=== PATIENT | female | born 1965 | race Caucasian/White ===

== ENCOUNTER 2017-03-08 17:15 | Inpatient (IN) | payer OTHER ==
[~2017-03-08] VITALS: Ht 177.8 cm; Wt 211.0 kg
--- NOTE | ~2017-03-08 | S ---
[facility] [place] [address] SURGICAL PATH RPT PROCEDURE Name: NURYS BILLS Room #: 429-P ADM IN M.R.#: [id number] Admission: 03/08/17 Date of : 67 Discharge: Report #: [id number] Path Case #: [id number] PATHOLOGY REPORT COLLECTION DATE: 03/11/2017 RECEIVED DATE: 03/13/2017 SUBMITTING PHYS: Dr. Carlos Ya OTHER PHYS: Castro Song M.D. SPECIMEN(S) RECEIVED: A.Left below knee amputation * * * * * * * * * * * * FINAL DIAGNOSIS: A. Leg, left, below knee amputation: - Ulceration, gangrenous necrosis and marked acute inflammation with abscess formation. - Bone underneath ulcer with acute osteomyelitis. - Skin and bone margin viable without acute inflammation. PATHOLOGIST: Ada Goldsmith M.D. REPORT ELECTRONICALLY SIGNED BY: Ada Goldsmith M.D. DATE/TIME: 03/17/2017 11:44 * * * * * * * * * * * * GROSS PATHOLOGY: Received in red biohazard bag labeled "Nurys Bills and left below knee amputation", is a below the knee amputation 24 cm in length from proximal skin resection margin to heel 21 cm from heel to distal tip of second toe. Extending above the skin is a 2.5 cm in length by 4.0 x 2.2 cm tibia and 3.0 cm in length by 1.5 x 1.0 cm fibula. The proximal skin, underlying soft tissue muscle and bone resection margin grossly appear viable. The vascular resection margin is unremarkable. The first digit is previously amputated; the remaining digits show a yellow crusted nail. On the plantar surface there is 18 x 11.0 cm ulcer with pedersen black necrotic skin that extends to the heel bone which is soft to cut. The sidhu-white skin is diffusely edematous. The vasculature shows intimal thickening. Agricultural Education Professor sections submitted as follows: A1 proximal skin, underlying soft tissue, muscle and vascular resection margin A2 bone resection margin, blue ink is tibia and the other fibula after decalcification A3 plantar ulceration A4 bone underlying ulceration of the decalcification A[address] [address] SURGICAL PATH RPT PROCEDURE Name: NURYS BILLS Kristen Room #: 429-P ADM IN M.R.#: [id number] Admission: 03/08/17 Date of : 67 Discharge: Report #: [id number] Path Case #: [id number] (SWS; 03/15/2017) CLINICAL HISTORY: None Provided INITIAL CPT CODE(S): A; [address] [address] PHONE: [phone] DIRECTOR: Nick Richards M.D. * * * END OF REPORT * * *
--- NOTE | ~2017-03-08 | O ---
[facility] [address] OPERATIVE REPORT Name: KALPANA BILLS Room #: 402-P ADM IN M.R.#: [id number] Admission: 03/08/17 Attend Phys: Castro Song MD Discharge: Date of : 67 Report #: [id number] THIS REPORT FOR: //name// CC: Castro Song [facility] physician/PCP PREOPERATIVE DIAGNOSIS: Left foot osteomyelitis, calcaneus with full thickness soft tissue loss. POSTOPERATIVE DIAGNOSIS: Left foot osteomyelitis, calcaneus with full thickness soft tissue loss. PROCEDURE: Left below-knee amputation. SURGEON: Carlos Ya MD ROOFER APPRENTICE: JANIE Moore. ANESTHETIC: General. INDICATIONS: The patient is a 51-year-old female who has diabetes, peripheral vascular disease and peripheral neuropathy. She presented with bilateral full thickness soft tissue ulceration, which was debrided about a week ago. She has exposed calcaneus. She had had MRI scans demonstrating that she had osteomyelitis in both calcanei. She had had amputation discussed with her prior to my seeing her yesterday and she understood that that was necessary to eradicate the infection. I reviewed the surgery in detail with her as well as the benefits, risks, outcomes and alternatives. I counseled her that with her size, poor vasculature and peripheral neuropathy, she is likely never going to be able to walk with a prosthesis, but amputation is advisable to eradicate the infection. We had initially planned to do both sides. However, because of the size of her leg, the tourniquet was ineffective and she had significant edema and bled significantly during the surgery and she was anemic to start with and had received 2 units to enable her to have the surgery in the first place until I and the anesthesiologist, Dr. Fracnisco agreed that it would have been too risky to try to do both lower extremities. She did receive intraoperative transfusion of 6 units. DESCRIPTION OF PROCEDURE: After adequate general anesthesia had been obtained, the patient's left lower extremity was prepped and draped in the usual meticulous sterile fashion. We initially gravity examined the leg and ran tourniquet up to 400; however, once we made the skin incision, it was apparent that we had more of a venous type of tourniquet and it seemed to actually exacerbate the bleeding, so the tourniquet was deflated. A fishmouth incision was made making the flaps as long as possible to stay above the unhealthy venous [address] [address] OPERATIVE REPORT Name: KALPANA BILLS Room #: 402-P ADM IN M.R.#: [id number] Admission: 03/08/17 Attend Phys: Castro Song MD Discharge: Date of : 67 Report #: [id number] stasis and inflamed tissue of the lower leg. Subq was divided sharply. We did obtain hemostasis with a combination of vascular clips and Bovie. The fascia was incised anteriorly and the periosteum was elevated on the tibia. We first released the anterior compartment musculature and identified the neurovascular bundle in the anterior compartment. The vessels were clamped and double suture ligated and the deep peroneal nerve was mobilized and incised and allowed to retract proximally. I then used the saw to transect the tibia and the fibula. The fibula was transected about a cm higher than the tibia. The interosseous membrane was divided. The tibialis posterior muscle was divided. The peroneal vessels and the posterior tibial vessels were identified and suture ligated doubly. The tibial nerve was also divided at about the level of the bone resection. We then took an amputation knife and cut through the remaining musculature of the posterior compartment. I had to debulk some of the muscle to allow for fascial closure. The wound was irrigated copiously, meticulous hemostasis was obtained. I placed a drain deep to the fascia. The fascia was then closed with #1 Tevdek interrupted colzao-vu-kmelo sutures. Subcutaneous was closed with 2-0 Vicryl and I placed trauma stitches with a 2-0 nylon to attempt to take tension off the skin edges and then darcy were placed in between these nylon sutures. Sterile compressive dressing was then applied. By: 1252 [id number] Carlos Ya MD /nt
--- NOTE | ~2017-03-08 | HC ---
[facility] [place] [address] CONSULTATION Name: KALPANA BILLS Room #: 429-P ADM IN M.R.#: [id number] Admission: 03/08/17 Attend Phys: Castro Song MD Discharge: Date of : 67 Report #: [id number] THIS REPORT FOR: //name// CC: Castro Song [facility] physician/PCP REASON FOR CONSULTATION: Elevated creatinine. REASON FOR PRESENTATION: Transferred from [facility] for bleeding heel ulcers. HISTORY OF PRESENT ILLNESS: This is an unfortunate 51-year-old with morbid obesity, diabetes mellitus, bilateral plantar ulcers. She had been in [facility] back in February 24 and stayed until March 03. She had required some debridement and was found to have osteomyelitis of calcaneal bone. When she was in [facility] back on February 24, she had a creatinine of around 1.4 that peaked at around 1.7. She was then discharged to [facility]. Reviewing her medical records there revealed that her creatinine has been creeping up gradually from 1.7 on admission to 1.9, 2.0. She had some issues with bleeding from her plantar wounds and was sent back to [facility] facility for further evaluation and management. She is maintained on Lasix twice a day for extensive bilateral lower extremity edema. The patient is known to have diabetes mellitus, hypertension, extensive lymphedema with morbid obesity, stasis dermatitis and venous stasis changes. The nurses relate to me that she had a Moreira catheter placed at [facility]; however, she had some bleeding from around the Moreira catheter this morning. I am being asked to evaluate because of creatinine of 2.2. She was started on vancomycin and Zosyn on her presentation. No other nephrotoxins. Vancomycin level on the was 25. She does have mild degree of eosinophilia on her peripheral blood. PAST MEDICAL HISTORY: Extensive and numerous medical problems including the following. 1. CKD. 2. Diabetes mellitus. 3. Hypertension. 4. Anemia. 5. Congestive heart failure. 6. Osteomyelitis, bilateral plantar areas. 7. Hypothyroidism. 8. Extensive lymphedema involving the abdominal wall and lower extremities. 9. Obstructive sleep apnea. 10. Obesity hypoventilation syndrome. PAST SURGICAL HISTORY: Debridements of the lower extremities. ALLERGIES: SULFA. [facility] [address] [place] [address] CONSULTATION Name: KALPANA BILLS Room #: 429-P [facility] IN M.R.#: [id number] Admission: 03/08/17 Attend Phys: Castro Song MD Discharge: Date of : 67 Report #: [id number] MEDICATIONS: 1. Vancomycin. 2. Zosyn. 3. Carvedilol. 4. Amlodipine. 5. Lasix. 6. Zantac. 7. Lantus. 8. Levothyroxine. SOCIAL HISTORY: Smoker 1 pack per day. No drug or alcohol abuse. Prior to [facility], she has been living with her spouse and children, 1 boy and 1 daughter. FAMILY HISTORY: Significant for hypertension and hyperlipidemia. REVIEW OF SYSTEMS: GENERAL: No fever or chills. CARDIOVASCULAR: Shortness of breath. PULMONARY: Shortness of breath. GASTROINTESTINAL: No hematemesis. No melena. MUSCULOSKELETAL: As per the history of present illness. GENITOURINARY: Blood from around the Moreira catheter. PHYSICAL EXAMINATION: GENERAL: Morbidly obese. VITAL SIGNS: Temperature 36.6. HEAD AND NECK: No jugular venous distention. CHEST: Very limited air entry. CARDIOVASCULAR: Distant S1 and S2. ABDOMEN: Morbidly obese with extensive abdominal wall edema. LOWER EXTREMITIES: Extensive edema. The images regarding her ulcers were reviewed and those were documented in chart. LABORATORY VALUES: Reviewed, creatinine 2.1. Hemoglobin 12.8. IMAGING: New chest x-ray reviewed. ASSESSMENT, IMPRESSION, AND PLAN: 1. Acute kidney injury. 2. Chronic kidney disease. 3. Morbid obesity. 4. Stasis dermatitis. 5. Lymphedema. [address] [address] CONSULTATION Name: KALPANA BILLS Room #: 429-P ADM IN .R.#: [id number] Admission: 03/08/17 Attend Phys: Castro Song MD Discharge: Date of : 67 Report #: [id number] 6. Peripheral arterial disease with osteomyelitis. 7. Hypothyroidism. 8. Debility. 9. Initiate acute kidney injury workup. Possibilities include acute interstitial booking supervisor given her eosinophilia. 10. Offending agents include Zosyn and vancomycin, the combination of those medications is well known to cause acute kidney injury. 11. We will hold vancomycin for today and obtain a vancomycin level since the level was 25 a few days ago. 12. Avoid nephrotoxins. 13. Fluid restriction. 14. Salt restriction. 15. Wound care. 16. Given the way the wounds looked on the images, she will likely need a surgical intervention. This is a very sudden unfortunate situation given her lymphedema and unfortunately her lymphedema will never resolve. She is currently maintained on Lasix twice a day. This is going to be at the expense of her kidney function and this was explained for her. Most recent TSH on February 24 was elevated at 16.5. I would recommend to obtain a T4 and adjust her thyroid replacement accordingly. We will continue to follow along. <ELECTRONICALLY SIGNED> By: Sher Proctor MD 03/17/17 0746 0925 1426 Sher Proctor MD /nt
--- NOTE | ~2017-03-08 | HC ---
[facility] [place] [address] CONSULTATION Name: KALPANA BILLS Room #: 429-P ADM IN M.R.#: [id number] Admission: 03/08/17 Attend Phys: Castro Song MD Discharge: Date of : 67 Report #: [id number] THIS REPORT FOR: //name// CC: Castro Song [facility] physician/PCP DATE OF SERVICE: 03/15/2017 HISTORY OF PRESENT ILLNESS: The patient is a 51-year-old white female previously known to me with bilateral heel ulcers with osteomyelitis, now status post left below knee amputation on 03/11 and a right below knee amputation on 03/14/2017. The patient is currently in the intensive care unit. She has acute on chronic renal insufficiency. She has morbid obesity with obesity hypoventilation syndrome with BiPAP at night. She has had some postop anemia and is being transfused. We are seeing her in rehabilitation medicine consultation. PAST MEDICAL HISTORY: Includes diabetes mellitus, chronic lower extremity ulcers of both heels premorbidly, history of bilateral lower extremity lymphedema. MEDICATIONS: Please see the full medication listing. ALLERGIES: SULFA. HABITS: Tobacco 1 pack per day. SOCIAL HISTORY: Lives in a house with her in a couple of adult children. The son notes that there are two steps to get in both the front door and the back door, which is a sliding glass door. He indicated she would not fit with the wheelchair through the front door, but would fit through the sliding glass door. He is in the process of building a ramp, although we talked about portable ramps as well. He also talked about bumping her up the couple of steps to get her in through the glass door entrance with himself and other family and friends assisting with the process. He talked about doing that in the short run before the full ramp is built if necessary. The patient premorbidly had been ambulatory short distances in the house and was essentially home bound, although she would get into the car every other week with her to go around apparently paying the bills. REVIEW OF SYSTEMS: No current complaints of chest pain, shortness of breath, abdominal discomfort. PHYSICAL EXAMINATION: A 51-year-old white female in no obvious distress. Height 5 feet 10 inches, weight 465 pounds, alert. Facies appeared symmetric. Functional range of motion of both upper extremities with strength probably a [facility] [address] [place] [address] CONSULTATION Name: KALPANA BILLS Room #: 429-P [facility] IN .R.#: [id number] Admission: 03/08/17 Attend Phys: Castro Song MD Discharge: Date of : 67 Report #: [id number] grade 4 to 4-/5. LOWER EXTREMITIES: Bilateral below knee amputations are wrapped. She was able to lift up both lower extremities at the hip with hip flexion, abduction and adduction are grade 4/5. She does have morbid obesity with a large abdominal pannus. Supine to sit is standby assistance with good sitting balance. ASSESSMENT: A 51-year-old white female with the following problem list: 1. Left below-knee amputation on 03/11/2017 with right below-knee amputation on 03/14/2017. 2. Morbid obesity with weight 465 pounds, although she is 5 feet 10 inches. 3. Acute renal insufficiency. 4. Postoperative anemia. 5. Obesity hypoventilation syndrome. 6. Severe peripheral vascular disease. 7. Diabetes mellitus type 2. PLAN: We will need to see how she does and if sliding board transfers are realistic goal for her. Discussion with the son regarding the ramp issues and I discussed with him the importance of needing to have a ramp built. At this point, we will need to see how she does in therapies and be glad to follow along with you. By: [id number] Silvino Howard MD /PMT
--- NOTE | ~2017-03-08 | H ---
[facility] [place] [address] HISTORY AND PHYSICAL Name: KALPANA BILLS Room #: 402-P ADM IN M.R.#: [id number] Admission: 03/08/17 Attend Phys: Castro Song MD Discharge: Date of : 67 Report #: [id number] THIS REPORT FOR: //name// CC: Castro Song [facility] physician/PCP DATE OF SERVICE: 03/08/2017 ATTENDING PHYSICIAN: Dr. Song. PRIMARY CARE PHYSICIAN: Unknown. CHIEF COMPLAINT: Bleeding heel ulcers. HISTORY OF PRESENT ILLNESS: The patient is a 51-year-old morbidly obese female who was just hospitalized here at [facility] from 02/24/2017 through 03/03/2017. She has bilateral heel ulcers that required debridement. She was found to have osteomyelitis of both calcanei. She did have 2 debridements while she was hospitalized and was sent to [place] for IV antibiotics. She has been on IV vancomycin and Zosyn. She apparently was sent back here tonight because of bleeding from the ulcers and for concern that she may need amputation. The patient is morbidly obese, but she says she has been able to walk and bear weight despite the ulcers. She says they have been bleeding since her last debridement. She is not on any blood thinners; otherwise since discharge, she says she has been feeling okay. She denies any fevers or chills, nausea, vomiting or diarrhea. She has had a good appetite. They have been treating elevated potassium as well and she just got a dose of Kayexalate today, so she was having some softer stool this evening. She does have some respiratory issues due to obesity hypoventilation and said that Efrain had her wearing oxygen continuously since discharge. There also is concern that she has some vascular compromise in both legs. She had an arterial ultrasound of the lower extremities done on 03/03/2017 prior to discharge, which showed that ultrasound velocities were monophasic throughout the entire left and right lower extremity, although this was a difficult exam due to her large body habitus. She does have chronic bilateral lower extremity lymphedema and some stasis dermatitis around both ankles. She says the actual wounds have been there for about 3 months. PAST MEDICAL HISTORY: Congestive heart failure, diabetes, hypertension, anemia of chronic disease and iron deficiency anemia, chronic kidney disease stage 3, obesity, hypothyroidism, chronic abdominal pain, bilateral lower extremity lymphedema with stasis dermatitis, depression, obstructive sleep apnea and obesity hypoventilation syndrome. PAST SURGICAL HISTORY: Multiple debridements of lower extremity wounds. ALLERGIES: SULFA. [address] [address] HISTORY AND PHYSICAL Name: KALPANA BILLS Room #: 402-P [facility] IN M.R.#: [id number] Admission: 03/08/17 Attend Phys: Castro Song MD Discharge: Date of : 67 Report #: [id number] HOME MEDICATIONS: Zosyn 4.5 g q. 6 hours, vancomycin 1 g daily, DuoNeb q. 4 hours, fish oil 1200 mg daily, carvedilol 25 mg b.i.d., amlodipine 10 mg daily, aspirin 325 mg daily, hydrocodone, Tylenol 5/325 one tab q. 4 hours p.r.n., Lyrica 75 mg p.o. b.i.d., Paxil 40 mg daily, Abilify 5 mg daily, Dakin's solution to the feet b.i.d., Lasix 80 mg b.i.d., Pulmicort b.i.d., MiraLax 17 g daily p.r.n., Pepcid 10 mg b.i.d., Zantac 150 mg b.i.d., Protonix 40 mg b.i.d., Lantus insulin 65 units at bedtime, Humalog insulin sliding scale and Humalog with meals 10 units b.i.d., levothyroxine 150 mcg daily. SOCIAL HISTORY: The patient had been smoking 1 pack of cigarettes per day. She denies any alcohol or drug use. Prior to [place], she had been living at home with her spouse and children. FAMILY HISTORY: Hypertension and hyperlipidemia. REVIEW OF SYSTEMS: During her last admission, her hemoglobin A1c was 10.3 and it is difficult to tell if her insulin doses were adjusted. She also had a TSH level of 16.5, but it does not look like her Synthroid dose was adjusted. It also looks like she has had chronic anemia with hemoglobins starting at 9.3 on admission and hemoglobin was down to 7.0 on the day of discharge. It does not look like she has had any blood transfusions. She denies any other bleeding other than from her heel wounds. All other 12-point review of systems was reviewed with the patient, otherwise negative unless stated in the HPI. PHYSICAL EXAMINATION: GENERAL: The patient is an alert, morbidly obese female, in no acute distress. VITAL SIGNS: Temperature is 36.8, heart rate 79, respirations 24, blood pressure 127/52, oxygen 93% on 2 liters O2. HEENT: PERRLA. Sclerae are nonicteric. Oral mucosa is pink and moist. NECK: Supple, no JVD noted. CARDIOVASCULAR: Normal S1, S2. No murmurs, rubs or gallops. RESPIRATORY: Breath sounds are clear bilateral upper lobes, she is diminished in both bases. Breathing is nonlabored. ABDOMEN: Very obese. She is slightly tender to deep palpation diffusely, but no rigidity or guarding. Bowel sounds are positive. VASCULAR: She does have 4+ bilateral lower extremity edema. There is some stasis dermatitis with scleroderma on bilateral lower extremities around her ankle and calf areas. There are bilateral heel wounds, which are both large with eschar. The left is bleeding some foul-smelling serosanguineous discharge. NEUROLOGIC: The patient is alert and oriented x 3. Speech is clear. No focal weakness noted. The RN did have her ambulate to the commode and she was steady on her feet. PSYCHIATRIC: The patient is calm and cooperative, but does have a flat affect. LABORATORY DATA AND DIAGNOSTICS: Labs done at [place] earlier today showed WBC [address] [address] HISTORY AND PHYSICAL Name: KALPANA BILLS Room #: 402-P ADM IN M.R.#: [id number] Admission: 03/08/17 Attend Phys: Castro Song MD Discharge: Date of : 67 Report #: [id number] of 15.1, hemoglobin 7.2 and platelets 455. Sodium 129, potassium 6.0, BUN 75, creatinine 2.0 and glucose 187. ASSESSMENT AND PLAN: 1. Bilateral heels ulcers with osteomyelitis. The patient was transferred due to bleeding and need for further debridement. We will again consult Dr. Pierce. Continue with Dakin's solution to both heels twice a day, continue vancomycin and Zosyn, check CRP level. 2. Diabetes, type 2. Recent hemoglobin A1c was 10.3. Continue current insulin regimen in sliding scale insulin and follow Accu-Cheks and adjust insulin accordingly. 3. Chronic kidney disease, stage 3. Creatinine is stable from previous. Continue with Lasix and monitor renal function closely. 4. Severe anemia. This is combination of iron deficiency and chronic disease. Recent iron level was 15. We will start iron supplementation and transfuse p.r.n., go ahead and type and screen. 5. Hyperkalemia. This was just treated earlier today with Kayexalate. Repeat labs at this time and treat potassium accordingly. She is not on any potassium supplementation with her Lasix. 6. Hypertension. Blood pressure is stable, continue home meds consisting of carvedilol and amlodipine. 7. Chronic respiratory failure due to obesity hypoventilation. Continue with breathing treatments and oxygen. 8. Hypothyroidism. Recent TSH level was 16.5. It does not look like her Synthroid dose was adjusted. We will increase Synthroid, but she will need TSH levels drawn in 6 weeks to follow up. 9. Chronic bilateral lower extremity lymphedema. Continue with p.o. Lasix b.i.d. Her recent echo showed an ejection fraction of 55% and normal diastolic function. 10. Morbid obesity. 11. Depression. Continue home meds. 12. Deep venous thrombosis prophylaxis. Sequential compression devices are contraindicated at this time because of her arterial compromise and lower extremity wounds and Lovenox is contraindicated due to severe anemia and bleeding heel ulcers. We will continue to follow the patient closely throughout the hospitalization and make changes based on clinical status. <ELECTRONICALLY SIGNED> By: BEATRIZ Mo 03/09/17 0749 0511 0613 BEATRIZ Mo /nt
--- NOTE | ~2017-03-08 | O ---
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 PROCEDURE: Right below knee amputation. SURGEON: Carlos Ya MD SHEEP SHEARER: Ana Tierney. ANESTHETIC: General. INDICATIONS: See hospital H and P. DESCRIPTION OF PROCEDURE: After adequate general anesthesia had been obtained, the patient's right lower extremity was prepped and draped in the usual meticulous sterile fashion. We did gravity exsanguinated and inflated the tourniquet to 400 torr. A fishmouth incision was made along the leg. We tried to preserve ____ distal posterior flap as possible, but because of her significant venous stasis and poor skin, we could not go as distal as we would like. SubQ was divided sharply. Hemostasis obtained with electrocautery. Saphenous vein was tied off. Fascia was then incised in line with the incision. We then elevated the soft tissue and periosteum along the tibia and exposed it more proximally. The anterior and lateral compartment muscles were isolated and transected. The anterior tibial artery vein and the deep peroneal nerve were identified. The nerve was isolated, retracted distally and cut and allowed to retract proximally. The vessels were stick tied and doubly ligated with another silk tie. The tibia and fibula were then transected. The fibula was transected about a cm proximal to the tibia. We beveled the anterior tibia and smoothed off the bone edges. The leg was then pulled anteriorly and the soft tissue was elevated off the posterior aspect of the fibula and the tibia. We exposed it more distally to allow for more distal division of the posterior neurovascular bundles to allow for identification and ligature. We then used the amputation knife to bevel the superficial posterior musculature. The leg was then removed. We then identified the vessels and clamped them. The tibial nerve was identified. It was isolated, retracted distally and transected proximally. The [address] [address] OPERATIVE REPORT Name: KALPANA BILLS Room #: 242-P [facility] IN M.R.#: [id number] Admission: 03/08/17 Attend Phys: Castro Song MD Discharge: Date of : 67 Report #: [id number] posterior tibial vessels and the peroneal vessels were then also exposed proximally, clamped transversely and stick ties were placed along with double suture ligature with silk tie. We then irrigated copiously. Hemostasis was obtained. We then applied pressure and let the tourniquet down. Additional hemostasis was then obtained. At this point, the fascia was reapproximated with interrupted stuexo-ti-asaxn Tevdek suture. The subQ was closed with Vicryl and the skin was closed with 2-0 nylon using a trauma stitch to take pressure off the skin edges and then darcy in between. Sterile compressive dressing was applied. By: [id number] Carlos Ya MD /nt
--- NOTE | ~2017-03-08 | HC ---
[facility] [place] [address] CONSULTATION Name: KALPANA BILLS Room #: 242-P ADM IN M.R.#: [id number] Admission: 03/08/17 Attend Phys: Castro Song MD Discharge: Date of : 67 Report #: [id number] THIS REPORT FOR: //name// CC: Castro Song [facility] physician/PCP DATE OF SERVICE: 03/09/2017 REASON FOR CONSULTATION: Pressure ulcers with gangrene of both plantar feet in the setting of diabetes mellitus and super morbid obesity. HISTORY OF PRESENT ILLNESS: The patient is a very pleasant 51-year-old woman suffering from super morbid obesity and diabetes. She was previously hospitalized at [facility] from 02/24/2017 to 03/03/2017 at which time she was seen by Dr. Barrett Davis and Dr. Nikhil Pierce. The patient sits in a chair for prolonged periods of time and when she last presented she had developed pressure necrosis of both plantar feet. Dr. Davis performed a bedside debridement of the most necrotic tissue of both feet. She was started on IV antibiotics. MRI has shown evidence of osteomyelitis of the feet. Arterial ultrasound shows monophasic velocities in both lower legs. Dr. Carr has reviewed these studies and feels that blood supply is adequate without any further interventions. The patient was subsequently transferred to [facility]. They noted there was some bleeding from the wounds there. They felt the patient might need amputations. They; therefore, had the patient readmitted to [facility] where she presents now and Wound Care is consulted for her diabetic foot ulcers with gangrene. PAST MEDICAL HISTORY: Super morbid obesity, diabetes mellitus type 2, hypertension, anemia of chronic disease and iron deficiency anemia, congestive heart failure, chronic kidney disease stage 3, chronic lymphedema of the lower extremities, depression, obstructive sleep apnea and hypoventilation syndrome. PAST SURGICAL HISTORY: Previous amputation of the left great toe for diabetic complications and previous debridement of the necrotic plantar surface of the feet by Dr. Davis at the bedside. HOME MEDICATIONS: Include Zosyn, vancomycin, DuoNeb, carvedilol, amlodipine, aspirin, hydrocodone, Lyrica, Paxil, Abilify, Lasix, Pulmicort, MiraLax, Pepcid, Zantac, Protonix, Lantus and Humalog insulin and levothyroxine. SOCIAL HISTORY: The patient has been a cigarette smoker up until lately. Family members with her in the room. She lives with her . She has children at home. REVIEW OF SYSTEMS: The patient has very difficult mobility due to her super morbid obesity. She has some shortness of breath. [facility] [address] [place] [address] CONSULTATION Name: KALPANA BILLS Room #: 242-P [facility] IN M.R.#: [id number] Admission: 03/08/17 Attend Phys: Castro Song MD Discharge: Date of : 67 Report #: [id number] PHYSICAL EXAMINATION: GENERAL: Shows a super morbidly obese female in no acute distress. She is alert, lucid and conversant. VITAL SIGNS: She is afebrile. HEENT: Mucous membranes are moist. NECK: Supple. LUNGS: Respirations are unlabored. ABDOMEN: Super morbidly obese. EXTREMITIES: Examination of the lower extremities shows chronic lymphedema of both lower extremities. There is some mild redness of the left ankle and foot, less so on the right. Examination of the plantar foot on the left shows full thickness necrosis involving skin and subcutaneous tissue with exposed tendon on the plantar surface of the left foot. There is moist, foul smelling necrotic tissue, very malodorous with some drainage. Examination of the right foot shows similar process, but more limited to the distal plantar aspect of the foot near the heel. IMPRESSION: 1. Super morbid obesity with alveolar hypoventilation. 2. Diabetes mellitus type 2 with diabetic foot ulcerations. 3. Chronic kidney disease. 4. Hypertension. 5. Peripheral vascular disease of the lower extremities. 6. Diabetic foot ulcers of both plantar feet, worse on the left than the right. These were caused by excessive pressure on the feet with sitting for a long period of time. These constitute serious diabetic foot ulcers with gangrene. Necrosis is full thickness with exposed tendon. PLAN: The patient is on IV antibiotics. We have consulted Orthopedics, Dr. Arreguin for his opinion. The patient herself has brought up the subject of amputation. Based on the appearance of the wound, the foul odor, evidence of osteomyelitis on MRI, it seems unlikely that healing of these wounds can be achieved. Furthermore, gangrene of these wounds constitutes an immediate health threat for the patient due to possible extension of infection and possibility of sepsis. We will control the local process with Dakin's dressings and antibiotics. Consulting Orthopedics for their surgical opinion and divisibility of possible amputation. We will await their opinion. I have contacted the [facility] for their surgical opinion. <ELECTRONICALLY SIGNED> By: Festus Jacobs MD 03/12/17 [id number] Festus Jacobs MD /nt
--- NOTE | ~2017-03-08 | S ---
[facility] [place] [address] SURGICAL PATH RPT PROCEDURE Name: NURYS BILLS Room #: 429-P DIS IN M.R.#: [id number] Admission: 03/08/17 Date of : 67 Discharge: 03/17/17 Report #: [id number] Path Case #: [id number] PATHOLOGY REPORT COLLECTION DATE: 03/14/2017 RECEIVED DATE: 03/14/2017 SUBMITTING PHYS: Dr. Carlos Ya OTHER PHYS: Castro Song M.D. SPECIMEN(S) RECEIVED: A.Right below knee amputation * * * * * * * * * * * * FINAL DIAGNOSIS: Leg, right, below knee amputation: - Ulceration, gangrenous necrosis, and marked acute inflammation of the skin and subcutaneous tissue. - Bone underneath ulcer showing acute osteomyelitis. - Skin and bone margin without acute inflammation and viable. (IUV:mgr; 03/17/2017) PATHOLOGIST: Ada Goldsmith M.D. REPORT ELECTRONICALLY SIGNED BY: Ada Goldsmith M.D. DATE/TIME: 03/17/2017 15:52 * * * * * * * * * * * * GROSS PATHOLOGY: Received in red biohazard bag labeled "Nurys Bills and right below knee amputation", is a below the knee amputation 25 cm in length from proximal skin resection margin to heel 24 cm from heel to distal tip of first toe. Extending above the skin is a 35 cm in length by 3.0 x 1.8 cm tibia and 4.0 cm in length by 1.6 x 1.0 cm fibula. The proximal skin, underlying soft tissue muscle and bone resection margin grossly appear viable. The vascular resection margin is unremarkable. All digits are present and shows yellow crusted nail. On the plantar surface there is a10. X 7.0 cm ulcer with pedersen black necrotic skin that extends to the heel bone which is soft to cut. The sidhu-white skin is diffusely edematous. The vasculature shows intimal thickening. 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 sections submitted as follows: A1 proximal skin, underlying soft tissue, muscle and vascular resection margin A2 bone resection margin, ink is tibia and the other fibula after decalcification A3 plantar ulceration and underlying bone after decalcification A4 vasculature (SWS; 03/15/2017) [address] [address] SURGICAL PATH RPT PROCEDURE Name: NURYS BILLS Room #: 429-P DIS IN M.R.#: [id number] Admission: 03/08/17 Date of : 67 Discharge: 03/17/17 Report #: [id number] Path Case #: [id number] CLINICAL HISTORY: Osteomyelitis, bilateral INITIAL CPT CODE(S): A; 84739, 15221 Professional services performed by [facility] [address], [place] [address] [facility] performed by [facility] at [address] [place] [address], [address], [place] [address]. [facility] [address] [place] [address] PHONE: [phone] DIRECTOR: Nick Richards M.D. * * * END OF REPORT * * *
[~2017-03-08 17:15] MED LIST: ABILIFY 5 MG TAB5 MG PO; AMLODIPINE BESY10 MG PO; ASPIRIN325 PO; COREG25 MG PO; FISH OIL 1,001000 M2 PO; HUMALOG100 UNIT/1 SUBQ; LANTUS SUBQ; LASIX 80 MG TAB80 MG PO; LYRICA 75 MG CA75 MG PO; MIRALAX17 GM PO; PANTOPRAZOLE SO40 M1 PO; PAXIL10 MG PO; POTASSIUM20 PO; SYNTHROID150 MCG PO; VANCOMYCIN HCL 11 G2 IVPB; ZANTAC 150MG T150 MG PO; ZOSYN 4.54.5 GM/101 IV; [UNRECOGNIZED DRUG - REMARK]
[2017-03-08 19:13] VITALS: BP 127/52
[2017-03-08] MEDS ORDERED: PEPCID20 MG PO (20:13)
[2017-03-08] MEDS ORDERED: HYDROCODONE-AP1 EAC6 PO (20:14)
[2017-03-08] MEDS ORDERED: DAKIN'S473 M1 TOP (20:16)
[2017-03-08] MEDS ORDERED: MUCINEX600 MG PO (20:16)
[2017-03-08 23:43] LABS: HEMATOCRIT 23.5 % (37.0-47.0); HEMOGLOBIN 7.3 gm/dL (12.0-15.0); MCH 25.8 pg (26.0-34.0); MCV 83.2 fL (80.0-100.0); RBC 2.83 mil/uL (4.20-5.00); WBC 14.2 thou/uL (4.0-11.0)
[2017-03-08 23:48] LABS: CREATININE 2.2 mg/dL (0.6-1.0); MAGNESIUM 2.2 mg/dL (1.8-2.4); POTASSIUM 5.6 mmol/L (3.5-5.1)
[2017-03-09 00:01] VITALS: BP 144/57
[2017-03-09] MEDS ORDERED: PULMICORT0.5 MG/22 INH (00:26)
[2017-03-09] MEDS ORDERED: DUONEB 2.5-0.5 M3 ML INH (00:28)
[2017-03-09 03:06] VITALS: BP 148/59
[2017-03-09 08:30] VITALS: BP 167/59
[2017-03-09 16:00] VITALS: BP 142/54
[2017-03-09 19:07] VITALS: BP 158/60
[2017-03-10] VITALS (7 sets, daily range): BP systolic 136–154; BP diastolic 48–65
[2017-03-10 04:28] LABS: HEMATOCRIT 22.1 % (37.0-47.0); MCHC 31.5 g/dL (28.0-37.0); MCV 82.5 fL (80.0-100.0); PLATELET COUNT 455 thou/uL (150-400); RBC 2.68 mil/uL (4.20-5.00); RDW 17.4 % (10.5-14.5); WBC 12.8 thou/uL (4.0-11.0)
[2017-03-10 04:32] LABS: CREATININE 2.1 mg/dL (0.6-1.0); POTASSIUM 4.9 mmol/L (3.5-5.1)
[2017-03-10 04:34] LABS: MANUAL DIFF YES
[2017-03-10 06:58] LABS: ABSOLUTE NEUTROPHILS 9.9 thou/uL (1.4-8.2); ANISOCYTOSIS 1+; MYELOCYTES 1 %; POLYCHROMASIA OCCASIONAL; TOTAL CELL COUNT 100
[2017-03-10 06:59] LABS: PLATELET ESTIMATE NORMAL
[2017-03-11] VITALS (24 sets, daily range): BP systolic 124–169; BP diastolic 49–114
[2017-03-11 04:30] LABS: HEMATOCRIT 24.8 % (37.0-47.0); MCH 26.9 pg (26.0-34.0); MCHC 32.3 g/dL (28.0-37.0); MCV 83.2 fL (80.0-100.0); PLATELET COUNT 386 thou/uL (150-400); RBC 2.98 mil/uL (4.20-5.00); RDW 17.4 % (10.5-14.5); WBC 10.4 thou/uL (4.0-11.0)
[2017-03-11 04:34] LABS: MANUAL DIFF YES
[2017-03-11 04:42] LABS: CALCIUM 8.1 mg/dL (8.5-10.1); POTASSIUM 4.8 mmol/L (3.5-5.1)
[2017-03-11 04:47] LABS: % SATURATION 28 % (20-39); IRON 46 ug/dL (50-170); TIBC 164 ug/dL (250-450); UIBC 118 ug/dL
[2017-03-11 05:17] LABS: FOLIC ACID 7.8 ng/mL (8.6-58.9)
[2017-03-11 05:55] LABS: ABSOLUTE NEUTROPHILS 8.1 thou/uL (1.4-8.2); ANISOCYTOSIS 1+; MYELOCYTES 1 %; POLYCHROMASIA OCCASIONAL; TOTAL CELL COUNT 100
[2017-03-11 11:10] LABS: HEMATOCRIT 22.9 % (37.0-47.0); MCH 27.5 pg (26.0-34.0); MCHC 32.4 g/dL (28.0-37.0); MCV 84.9 fL (80.0-100.0); RBC 2.7 mil/uL (4.20-5.00); RDW 16.2 % (10.5-14.5); WBC 9.9 thou/uL (4.0-11.0)
[2017-03-11 11:12] LABS: HEMOGLOBIN 7.4 gm/dL (12.0-15.0)
[2017-03-11 11:21] LABS: APTT 32.3 Seconds (24.5-32.8); FIBRINOGEN 398.6 mg/dL (210-360); PROTIME 12.7 Seconds (9.3-11.4)
[2017-03-11 11:23] LABS: INR 1.2
[2017-03-11 13:45] LABS: HEMATOCRIT 31.8 % (37.0-47.0); MCH 28.8 pg (26.0-34.0); MCV 84.5 fL (80.0-100.0); RBC 3.77 mil/uL (4.20-5.00); RDW 16.2 % (10.5-14.5); WBC 15.1 thou/uL (4.0-11.0)
[2017-03-11 13:47] LABS: HEMOGLOBIN 10.8 gm/dL (12.0-15.0)
[2017-03-11 13:56] LABS: CALCIUM 8.2 mg/dL (8.5-10.1); CREATININE 1.8 mg/dL (0.6-1.0); POTASSIUM 5.6 mmol/L (3.5-5.1)
[2017-03-11 14:00] LABS: APTT 29.2 Seconds (24.5-32.8); FIBRINOGEN 493.1 mg/dL (210-360); INR 1.1; PROTIME 11.4 Seconds (9.3-11.4)
[2017-03-11 15:58] LABS: HEMATOCRIT 31.4 % (37.0-47.0); HEMOGLOBIN 10.3 gm/dL (12.0-15.0)
[2017-03-12] VITALS (23 sets, daily range): BP systolic 107–161; BP diastolic 38–108
[2017-03-12 06:05] LABS: HEMATOCRIT 27.2 % (37.0-47.0); HEMOGLOBIN 8.8 gm/dL (12.0-15.0); MCH 27.4 pg (26.0-34.0); MCHC 32.5 g/dL (28.0-37.0); MCV 84.4 fL (80.0-100.0); PLATELET COUNT 323 thou/uL (150-400); RBC 3.22 mil/uL (4.20-5.00); RDW 16.1 % (10.5-14.5); WBC 12.2 thou/uL (4.0-11.0)
[2017-03-12 06:17] LABS: MANUAL DIFF YES
[2017-03-12 06:20] LABS: CREATININE 1.7 mg/dL (0.6-1.0); POTASSIUM 5.3 mmol/L (3.5-5.1)
[2017-03-12 10:42] LABS: ABSOLUTE NEUTROPHILS 10.5 thou/uL (1.4-8.2); TOTAL CELL COUNT 100
[2017-03-12 10:43] LABS: ANISOCYTOSIS 1+; POLYCHROMASIA OCCASIONAL
[2017-03-13] VITALS (29 sets, daily range): BP systolic 81–145; BP diastolic 43–80
[2017-03-13 05:13] LABS: HEMATOCRIT 25.3 % (37.0-47.0); HEMOGLOBIN 8.2 gm/dL (12.0-15.0); MCH 28.1 pg (26.0-34.0); MCHC 32.6 g/dL (28.0-37.0); MCV 86.1 fL (80.0-100.0); PLATELET COUNT 316 thou/uL (150-400); RBC 2.94 mil/uL (4.20-5.00); RDW 16.8 % (10.5-14.5); WBC 10.1 thou/uL (4.0-11.0)
[2017-03-13 05:16] LABS: MANUAL DIFF YES
[2017-03-13 05:23] LABS: ALBUMIN 1.6 g/dL (3.4-5.0); CALCIUM 7.9 mg/dL (8.5-10.1); CREATININE 1.9 mg/dL (0.6-1.0); PHOSPHORUS 5.1 mg/dL (2.5-4.9); POTASSIUM 4.7 mmol/L (3.5-5.1)
[2017-03-13 07:07] LABS: ABSOLUTE NEUTROPHILS 6.6 thou/uL (1.4-8.2); ANISOCYTOSIS 1+; METAMYELOCYTES 3 %; POLYCHROMASIA OCCASIONAL; TOTAL CELL COUNT 100
[2017-03-14] VITALS (32 sets, daily range): BP systolic 99–151; BP diastolic 52–86
[2017-03-14 05:08] LABS: BASOPHILS 0.2 % (0.0-2.0); EOSINOPHILS 4.8 % (0.0-3.0); HEMATOCRIT 26.9 % (37.0-47.0); HEMOGLOBIN 8.7 gm/dL (12.0-15.0); MCH 28.3 pg (26.0-34.0); MCHC 32.4 g/dL (28.0-37.0); MCV 87.3 fL (80.0-100.0); MONOCYTES 7.7 % (1.0-8.0); PLATELET COUNT 297 thou/uL (150-400); POLYS 71.3 % (36.0-66.0); RBC 3.08 mil/uL (4.20-5.00); RDW 16.1 % (10.5-14.5); WBC 8.5 thou/uL (4.0-11.0)
[2017-03-14 05:10] LABS: MANUAL DIFF NO
[2017-03-14 05:21] LABS: ALBUMIN 1.7 g/dL (3.4-5.0); CALCIUM 7.7 mg/dL (8.5-10.1); CREATININE 1.9 mg/dL (0.6-1.0); POTASSIUM 4.8 mmol/L (3.5-5.1); TOTAL BILIRUBIN 0.7 mg/dL (<0.1-1.0)
[2017-03-15] VITALS (47 sets, daily range): BP systolic 84–157; BP diastolic 42–116
[2017-03-15 05:27] LABS: HEMATOCRIT 22.1 % (37.0-47.0); HEMOGLOBIN 7.3 gm/dL (12.0-15.0); MCH 28.7 pg (26.0-34.0); MCHC 32.8 g/dL (28.0-37.0); MCV 87.6 fL (80.0-100.0); PLATELET COUNT 279 thou/uL (150-400); RBC 2.53 mil/uL (4.20-5.00); RDW 16.4 % (10.5-14.5); WBC 9.4 thou/uL (4.0-11.0)
[2017-03-15 05:38] LABS: ALBUMIN 1.6 g/dL (3.4-5.0); CALCIUM 7.6 mg/dL (8.5-10.1); CREATININE 1.9 mg/dL (0.6-1.0)
[2017-03-15 05:39] LABS: MANUAL DIFF YES
[2017-03-15 08:04] LABS: ABSOLUTE NEUTROPHILS 8.8 thou/uL (1.4-8.2); ANISOCYTOSIS 1+; TOTAL CELL COUNT 100
[2017-03-16 05:18] VITALS: BP 138/65
[2017-03-16 07:32] VITALS: BP 153/75
[2017-03-16 08:34] LABS: BASOPHILS 1.2 % (0.0-2.0); EOSINOPHILS 4.1 % (0.0-3.0); HEMATOCRIT 23.9 % (37.0-47.0); HEMOGLOBIN 7.9 gm/dL (12.0-15.0); LYMPHOCYTES 19.9 % (24.0-44.0); MCH 28.8 pg (26.0-34.0); MCHC 32.8 g/dL (28.0-37.0); MCV 87.8 fL (80.0-100.0); MONOCYTES 7.2 % (1.0-8.0); PLATELET COUNT 291 thou/uL (150-400); POLYS 67.6 % (36.0-66.0); RBC 2.73 mil/uL (4.20-5.00); RDW 16.4 % (10.5-14.5); WBC 8.9 thou/uL (4.0-11.0)
[2017-03-16 08:37] LABS: MANUAL DIFF NO
[2017-03-16 09:08] LABS: ALBUMIN 1.3 g/dL (3.4-5.0); CREATININE 1.3 mg/dL (0.6-1.0); PHOSPHORUS 2.7 mg/dL (2.5-4.9)
[2017-03-16 09:10] LABS: POTASSIUM 3.4 mmol/L (3.5-5.1)
[2017-03-16 09:12] LABS: CALCIUM 5.8 mg/dL (8.5-10.1)
[2017-03-16] MEDS ORDERED: IRON325 PO (12:27)
[2017-03-16] MEDS ORDERED: PERCOCET 5-3251 EACH PO (12:27)
[2017-03-16 15:16] VITALS: BP 122/55
[2017-03-16 20:00] VITALS: BP 126/57
[2017-03-17 05:00] VITALS: BP 127/49
[2017-03-17 06:31] LABS: ALBUMIN 1.8 g/dL (3.4-5.0); CALCIUM 7.7 mg/dL (8.5-10.1); PHOSPHORUS 3.4 mg/dL (2.5-4.9); POTASSIUM 4.7 mmol/L (3.5-5.1)
[2017-03-17 09:10] VITALS: BP 150/69
== END 2017-03-17 15:30 | DRG 617 ==
LOC: 4N 17:15 → ICU 03-11 14:14 → 4E 03-15 16:22
PROVIDERS: Anesthesiology; Hospitalist; Internal Medicine Nephrology; Nurse Practitioner Acute Care
PROC: 0Y6G0ZZ Detachment at Left Knee Region, Open Approach (ICD-10-PCS; principal; 2017-03-11)
PROC: 30233R1 Transfusion of Nonautologous Platelets into Peripheral Vein, Percutaneous Approach (ICD-10-PCS; 2017-03-11)
PROC: 30233N1 Transfusion of Nonautologous Red Blood Cells into Peripheral Vein, Percutaneous Approach (ICD-10-PCS; 2017-03-11)
PROC: 0Y6F0ZZ Detachment at Right Knee Region, Open Approach (ICD-10-PCS; 2017-03-14)
DX: E11.69 Type 2 diabetes mellitus with other specified complication (principal); M86.8X7 Other osteomyelitis, ankle and foot; Z68.44 Body mass index [BMI] 60.0-69.9, adult; J96.10 Chronic respiratory failure, unspecified whether with hypoxia or hypercapnia; E66.2 Morbid (severe) obesity with alveolar hypoventilation; L97.429 Non-pressure chronic ulcer of left heel and midfoot with unspecified severity; L97.419 Non-pressure chronic ulcer of right heel and midfoot with unspecified severity; E11.621 Type 2 diabetes mellitus with foot ulcer; I87.2 Venous insufficiency (chronic) (peripheral); I13.0 Hypertensive heart and chronic kidney disease with heart failure and stage 1 through stage 4 chronic kidney disease, or unspecified chronic kidney disease; E11.22 Type 2 diabetes mellitus with diabetic chronic kidney disease; N17.9 Acute kidney failure, unspecified; D50.0 Iron deficiency anemia secondary to blood loss (chronic); N18.3 Chronic kidney disease, stage 3 (moderate); E87.5 Hyperkalemia; F32.9 Major depressive disorder, single episode, unspecified; E03.9 Hypothyroidism, unspecified; I50.9 Heart failure, unspecified; D50.9 Iron deficiency anemia, unspecified; I89.0 Lymphedema, not elsewhere classified; E11.51 Type 2 diabetes mellitus with diabetic peripheral angiopathy without gangrene; Z79.899 Other long term (current) drug therapy; Z83.3 Family history of diabetes mellitus; Z88.2 Allergy status to sulfonamides
CPT/HCPCS: 10078; 10783; 10790; 50010; 50101; 50386; 50404; 51412; 53000; 56524; 56525; 56527; 56528; 56668; 57091; 62110; 62900; 70005

== ENCOUNTER 2017-08-17 11:11 | Inpatient (IN) | payer OTHER ==
[~2017-08-17] VITALS: Ht 177.8 cm; Wt 212.7 kg
--- NOTE | ~2017-08-17 | EKG ---
[address] [place] [employer] [place] [address] ELECTROCARDIOGRAM REPORT Name: KALPANA BILLS Room #: 458-P ADM IN M.R.#: [id number] Admission: 08/17/17 Attend Phys: Tavon Valles MD Discharge: Date of : 67 Report #: [id number] THIS REPORT FOR: //name// [facility]ly [facility] Test Date: 2017-08-19 Test Time: 12:55:04 Pat Name: KALPANA BILLS Department: Room: 458 Gender: F Certified Medical Records Coder: [email or web address] : 1965 Requested By: Tavon Valles Order Number: [id number] MD: Malick Kline Measurements Intervals [place] Rate: 74 P: 68 [place]: 198 QRS: 48 QRSD: 97 T: 39 QT: 400 QTc: 444 Interpretive Statements Sinus rhythm Low voltage, precordial leads Anteroseptal infarct, old Compared to ECG 02/24/2017 11:53:52 No significant changes Electronically Signed On 08-20-2017 16:36:19 CDT by Malick Kline [email or web address] <ELECTRONICALLY SIGNED> By: Malick Kline MD, [facility] 08/20/17 0286 1255 1255 Malick Kline MD, [facility] /EPI
--- NOTE | ~2017-08-17 | HC ---
[facility] [place] [address] CONSULTATION Name: KALPANA BILLS Room #: 458-P [facility] IN M.R.#: [id number] Admission: 08/17/17 Attend Phys: Tavon Valles MD Discharge: 08/21/17 Date of : 67 Report #: [id number] THIS REPORT FOR: //name// CC: Tavon Driver DATE OF SERVICE: 08/18/2017 CHIEF COMPLAINT: Bilateral BKA stump ulcerations. HISTORY OF PRESENT ILLNESS: This is a 52-year-old morbidly obese white female who is being admitted to the hospital for ongoing abdominal pain and nausea. There was question whether the patient had a midline mass, could possibly be a ventral hernia, workup is undergoing. We have been asked to see the patient for bilateral ulcerations on her bilateral BKA stumps. The patient states that in order for her to get around the house some times, she has to crawl on the floor and that is how these ulcerations started on her stumps. The patient denies any pain associated with the ulcerations. The patient denies any fevers or chills or any other associated complaints or concerns. The patient's blood sugar in the Emergency Department was over 700. The patient does admit to the fact that she has not been taking her insulin over the past several days. PAST MEDICAL HISTORY: Super morbid obesity, bilateral mohzn-sbe-rjsa amputations, diabetes. CURRENT MEDICATIONS: Multiple, I reviewed the patient's medication list. ALLERGIES: SULFA. SOCIAL HISTORY: The patient states she does smoke 1 pack of cigarettes daily. Does not drink alcohol. FAMILY HISTORY: Not pertinent to current medical condition. REVIEW OF SYSTEMS: CONSTITUTIONAL: The patient denies fevers or chills. NEUROLOGIC: The patient with overall generalized weakness, but no isolated weakness in arms or legs. EYES: No complaints. ENT: No complaints. CARDIAC: The patient has chronic lower extremity edema. Denies chest pain or palpitation. RESPIRATORY: The patient denies shortness of breath, cough or wheezes. GASTROINTESTINAL: The patient with generalized abdominal pain with associated nausea, vomiting. GENITOURINARY: The patient denies urgency or frequency. [facility] [address] [place] [address] CONSULTATION Name: KALPANA BILLS Room #: 458-P [facility] IN .R.#: [id number] Admission: 08/17/17 Attend Phys: Tavon Valles MD Discharge: 08/21/17 Date of : 67 Report #: [id number] MUSCULOSKELETAL: No complaints. SKIN: There are open ulcerations on the right BKA, limited breakdown of skin on the left BKA, limited breakdown of subcutaneous tissue. PHYSICAL EXAMINATION: VITAL SIGNS: Temperature 37.0, pulse 85, respiration rate 19, and blood pressure 133/55. GENERAL: This is alert and oriented x 3, morbidly obese white female who is in mild distress secondary to symptoms. HEENT: Normocephalic, atraumatic. Mucous membranes are somewhat dry. Pupils are round. Sclerae are white. NECK: Supple, nontender. LUNGS: Slightly diminished breath sounds heard throughout. HEART: Regular. ABDOMEN: Morbidly obese, soft. Mild diffuse tenderness without rebound or guarding. EXTREMITIES: The patient has bilateral BKAs; on the right BKA stump, there is a chronic ulceration which is clean, granulating, limited breakdown of skin without tunneling. There are no signs of erythema, warmth, or cellulitis, measures approximately 3 x 2 cm with x 0.1 cm depth. On the left lower extremity BKA stump, there is a full-thickness ulceration with limited breakdown of the subcutaneous tissues with yellowish drainage without odor. Periulcer is intact. There is tunneling that goes in approximately 2 cm. On the outside, it is approximately 1 x 1 cm. There is no evidence of exposed deeper structures. No signs of cellulitis. Sacrococcygeal region was without ulcerations or pressure changes. NEUROLOGIC: Cranial nerves 2-12 grossly intact. Motor and sensory grossly intact. LABORATORY DATA: White count 10.5, hemoglobin 12.0, BUN 31, creatinine 2.4. WOUND CARE COURSE: At this time, we will start Aquacel Ag packed into the left jcuvg-pus-deeq amputation stump site, change this 3 times weekly and cover with a foam dressing. The right lower extremity BKA ulceration will be dressed with a silver foam, change this three times weekly. The patient will be put in a low air loss mattress; given her morbid obesity and risk for pressure changes, be turned every 2 hours. We will try to maximize the patient's protein supplementation for healing. Workup for her nausea is undergoing by the gastrointestinal physicians and surgeons. We will continue to follow the patient. IMPRESSION: 1. Chronic ulceration, right rafzj-gku-xhid amputation stump, superficial, limited to breakdown of skin. 2. Chronic ulceration, left dxhfs-vsa-zyky amputation stump, full thickness, limited breakdown of subcutaneous tissue. [facility] [address] [place] [address] CONSULTATION Name: KALPANA BILLS Room #: 458-P DIS IN M.R.#: [id number] Admission: 08/17/17 Attend Phys: Tavon Valles MD Discharge: 08/21/17 Date of : 67 Report #: [id number] 3. Chronic nausea, workup is undergoing. 4. Morbid obesity. 5. Diabetes mellitus type 2. 6. Generalized debility. PLAN: We will continue silver foam dressing to the right rthei-kxz-srum amputation stump site, change it 3 times weekly. Aquacel will be packed into the left knee site 3 times weekly. We will continue all the other medicines at this time. We will continue to follow the patient. By: 1136 05 Barrett Davis MD /nt
[~2017-08-17 11:11] MED LIST changes: +DAKIN'S473 M1 TOP; +DUONEB 2.5-0.5 M3 ML INH; +HYDROCODONE-AP1 EAC6 PO; +IRON325 PO; +MUCINEX600 MG PO; +PEPCID20 MG PO; +PERCOCET 5-3251 EACH PO; +PULMICORT0.5 MG/22 INH
[2017-08-17 11:12] VITALS: BP 156/79
[2017-08-17 12:51] LABS: HEMATOCRIT 34.9 % (37.0-47.0); MCHC 34.4 g/dL (28.0-37.0); MCV 84.5 fL (80.0-100.0); PLATELET COUNT 243 thou/uL (150-400); RBC 4.14 mil/uL (4.20-5.00); RDW 14.6 % (10.5-14.5); WBC 10.5 thou/uL (4.0-11.0)
[2017-08-17] MEDS ORDERED: LYRICA 75 MG CA75 MG PO (12:55)
[2017-08-17] MEDS ORDERED: RANITIDINE HCL300 M1 PO (12:56)
[2017-08-17] MEDS ORDERED: LASIX 80 MG TAB80 MG PO (12:56)
[2017-08-17 12:57] LABS: URINE BILIRUBIN NEGATIVE (Negative); URINE BLOOD 1+ (Negative); URINE CLARITY SL CLOUDY; URINE COLOR YELLOW; URINE GLUCOSE-RANDOM* 3+ (Negative); URINE KETONES NEGATIVE (Negative); URINE LEUKOCYTES-REFLEX NEGATIVE (Negative); URINE NITRITE-REFLEX NEGATIVE (Negative); URINE PROTEIN (DIPSTICK) 3+ (Negative); URINE SPECIFIC GRAVITY <= 1.005 (1.005-1.035); URINE UROBILINOGEN 0.2 E.U./dl (0.2-1.0)
[2017-08-17] MEDS ORDERED: POTASSIUM20 PO (12:57)
[2017-08-17] MEDS ORDERED: PAROXETINE HCL40 MG PO (12:57)
[2017-08-17] MEDS ORDERED: ALBUTEROL2.5 MG/31 INH (12:58)
[2017-08-17] MEDS ORDERED: COMBIVENT RESPIM4 GM INH (12:58)
[2017-08-17] MEDS ORDERED: VENTOLIN HFA 1818 GM INH (12:58)
[2017-08-17 13:08] LABS: SQUAMOUS 4-10 Moderate /LPF (0-3)
[2017-08-17 13:10] LABS: FINE GRANULAR CASTS 0-3 Few /LPF (None Seen)
[2017-08-17 13:11] LABS: CALCIUM 8.3 mg/dL (8.5-10.1); CREATININE 2.1 mg/dL (0.6-1.0)
[2017-08-17 13:11] LABS: AMORPHOUS URATES Moderate /LPF (None Seen); BACTERIA-REFLEX 1-9 Few /HPF (None Seen); URINE RBC 0-2 Rare /HPF (0-2); URINE WBC-REFLEX 0-5 Rare /HPF (0-5)
[2017-08-17 13:21] LABS: POTASSIUM 2.7 mmol/L (3.5-5.1)
[2017-08-17 13:32] LABS: ABSOLUTE NEUTROPHILS 8.5 thou/uL (1.4-8.2); PLATELET ESTIMATE NORMAL
[2017-08-17 14:03] VITALS: BP 181/72
[2017-08-17 14:26] VITALS: BP 193/70
[2017-08-17 16:39] VITALS: BP 168/73
[2017-08-17 19:19] VITALS: BP 167/65
[2017-08-18 00:20] VITALS: BP 156/67
[2017-08-18 04:55] VITALS: BP 141/51
[2017-08-18 05:56] LABS: CALCIUM 7.5 mg/dL (8.5-10.1); CREATININE 2.1 mg/dL (0.6-1.0); MAGNESIUM 1.7 mg/dL (1.8-2.4); POTASSIUM 3.1 mmol/L (3.5-5.1)
[2017-08-18 08:14] LABS: HEMOGLOBIN 11.8 gm/dL (12.0-15.0); MCH 29.1 pg (26.0-34.0); MCHC 34.6 g/dL (28.0-37.0); RBC 4.05 mil/uL (4.20-5.00); WBC 9.3 thou/uL (4.0-11.0)
[2017-08-18 08:44] VITALS: BP 163/59
[2017-08-18 11:38] LABS: CALCIUM 7.7 mg/dL (8.5-10.1); CREATININE 2.3 mg/dL (0.6-1.0)
[2017-08-18 11:39] LABS: MAGNESIUM 1.8 mg/dL (1.8-2.4)
[2017-08-18 11:42] LABS: POTASSIUM 2.8 mmol/L (3.5-5.1)
[2017-08-18 16:30] VITALS: BP 139/58
[2017-08-18 19:30] VITALS: BP 156/63
[2017-08-19 03:31] VITALS: BP 152/73
[2017-08-19 07:10] VITALS: BP 159/74
[2017-08-19 15:40] VITALS: BP 155/76
[2017-08-19 20:00] VITALS: BP 155/68
[2017-08-20 04:30] VITALS: BP 150/69
[2017-08-20 07:02] LABS: HEMATOCRIT 36.1 % (37.0-47.0); HEMOGLOBIN 12.2 gm/dL (12.0-15.0); MCH 28.6 pg (26.0-34.0); MCHC 33.9 g/dL (28.0-37.0); MCV 84.4 fL (80.0-100.0); RBC 4.27 mil/uL (4.20-5.00); RDW 14.9 % (10.5-14.5); WBC 9.8 thou/uL (4.0-11.0)
[2017-08-20 07:10] VITALS: BP 152/72
[2017-08-20 07:10] LABS: CALCIUM 7.6 mg/dL (8.5-10.1); CREATININE 2.4 mg/dL (0.6-1.0); POTASSIUM 3.6 mmol/L (3.5-5.1)
[2017-08-20 07:12] VITALS: BP 152/72
[2017-08-20] MEDS ORDERED: LANTUS SUBQ (13:05)
[2017-08-20] MEDS ORDERED: HUMALOG100 UNIT/1 SUBQ (13:11)
[2017-08-20 13:34] VITALS: BP 152/72
[2017-08-20 15:35] VITALS: BP 150/68
[2017-08-20 19:00] VITALS: BP 153/69
[2017-08-21 04:13] VITALS: BP 133/55
[2017-08-21 08:00] VITALS: BP 141/54
[2017-08-21] MEDS ORDERED: POTASSIUM20 PO (13:15)
[2017-08-21] MEDS ORDERED: LASIX 80 MG TAB80 MG PO (13:15)
== END 2017-08-21 16:10 | disposition home or self-care (01) | DRG 565 ==
LOC: ER 11:11 → EROBS 13:49 → 3W 15:30 → 4W 16:01
PROVIDERS: Emergency Medicine; Hospitalist
DX: T87.43 Infection of amputation stump, right lower extremity (principal); E46 Unspecified protein-calorie malnutrition; I13.0 Hypertensive heart and chronic kidney disease with heart failure and stage 1 through stage 4 chronic kidney disease, or unspecified chronic kidney disease; Z68.44 Body mass index [BMI] 60.0-69.9, adult; T87.44 Infection of amputation stump, left lower extremity; E11.621 Type 2 diabetes mellitus with foot ulcer; K21.9 Gastro-esophageal reflux disease without esophagitis; E11.65 Type 2 diabetes mellitus with hyperglycemia; E66.01 Morbid (severe) obesity due to excess calories; L97.511 Non-pressure chronic ulcer of other part of right foot limited to breakdown of skin; R07.89 Other chest pain; L97.521 Non-pressure chronic ulcer of other part of left foot limited to breakdown of skin; E87.6 Hypokalemia; E03.9 Hypothyroidism, unspecified; E11.51 Type 2 diabetes mellitus with diabetic peripheral angiopathy without gangrene; E11.22 Type 2 diabetes mellitus with diabetic chronic kidney disease; N18.9 Chronic kidney disease, unspecified; K43.9 Ventral hernia without obstruction or gangrene; R59.1 Generalized enlarged lymph nodes; J44.9 Chronic obstructive pulmonary disease, unspecified; F17.210 Nicotine dependence, cigarettes, uncomplicated; R19.00 Intra-abdominal and pelvic swelling, mass and lump, unspecified site; Y83.5 Amputation of limb(s) as the cause of abnormal reaction of the patient, or of later complication, without mention of misadventure at the time of the procedure; I50.9 Heart failure, unspecified; Z89.511 Acquired absence of right leg below knee; Z83.3 Family history of diabetes mellitus; Z88.2 Allergy status to sulfonamides; Z89.512 Acquired absence of left leg below knee; Z79.4 Long term (current) use of insulin; Z79.01 Long term (current) use of anticoagulants; Z79.82 Long term (current) use of aspirin; Y92.89 Other specified places as the place of occurrence of the external cause
CPT/HCPCS: 10047

== ENCOUNTER 2018-08-21 15:13 | Inpatient (IN) | payer OTHER ==
[~2018-08-21] VITALS: Ht 177.8 cm; Wt 223.8 kg
--- NOTE | ~2018-08-21 | HC ---
[facility] [place] [address] CONSULTATION Name: KALPANA BILLS Room #: 453-P [facility] IN M.R.#: [id number] Admission: 08/21/18 ������������������ Attend Phys: Raciel aPris MD Discharge: ������������������ Date of : 67 Report #: [id number] THIS REPORT FOR: //name// CC: Nikhil Driver DATE OF SERVICE: 08/22/2018 REASON FOR CONSULTATION: Chronic kidney disease. HISTORY OF PRESENT ILLNESS: This 53-year-old patient with longstanding diabetes and known triopathy has not been taking her home medications, and despite recommendations has not seen a pipeline executive in consultation recently. She was seen by our group at this hospital 2 years ago at which time she had a baseline creatinine of about 2.0. She was also seen in this hospital 1 year ago, creatinine at that time was 2.7 and she was not seen by a pipeline executive during that hospitalization. PAST MEDICAL HISTORY: The patient had chronic lower extremity heel ulcers, eventually underwent bilateral hiosq-fog-uvfp amputations. Has longstanding and severe diabetes with triopathy, remote history of myocardial infarction and congestive heart failure, longstanding hypothyroidism, obesity hypoventilation syndrome and extensive lymphedema. ALLERGIES: REPORTEDLY TO SULFA. PAST SURGICAL HISTORY: Remarkable for the amputations and before that debridements of lower extremity heel ulcers. SOCIAL HISTORY: Longstanding smoker, continues to smoke cigarettes. HOME MEDICATIONS: As listed include albuterol inhaler, amlodipine 10 mg daily, atorvastatin 20 mg daily, carvedilol 25 mg b.i.d., furosemide 80 mg b.i.d., insulin, levothyroxine, Paxil 40 mg daily, potassium 20 mEq daily, ranitidine 300 mg daily and tramadol. As mentioned, reports are that through her home pharmacy that she has not been feeling virtually any of these medications in some time except for Percocet, which interestingly was not listed. REVIEW OF SYSTEMS: GENERAL: She has been feeling okay, eating well. GASTROINTESTINAL: No nausea, vomiting, diarrhea. She does have chronic shortness of air. EYES: She has had some trouble with her vision and has had a diagnosis of diabetic retinopathy. ENT: Hearing okay, swallows okay. No mouth sores. [address] [address] CONSULTATION Name: KALPANA BILLS Room #: 453-P [facility] IN .R.#: [id number] Admission: 08/21/18 ������������������ Attend Phys: Raciel Paris MD Discharge: ������������������ Date of : 67 Report #: [id number] ENDOCRINE: Positive for the diabetes and thyroid disease with elevated TSH, indicative of the fact that she has been taking her thyroid medication. RESPIRATORY: Very easily short-winded, chronic smoker with some chronic cough, no hemoptysis. CARDIAC: No chest pain or angina. No palpitations. GASTROINTESTINAL: Denies nausea, vomiting, diarrhea or bloody stools. GENITOURINARY: Denies dysuria, hematuria or renal stone disease. NEUROLOGIC: She has neuropathy in her upper extremities and of course she had the bilateral amputations of the lower extremities. No seizure, no syncope, no stroke. MUSCULOSKELETAL: Chronic lymphedema of dependent areas. She does have a history of hypertension. SOCIAL HISTORY: No alcohol, no recreational drugs. Occasional marijuana. Does of course smoke cigarettes 1 pack a day. PHYSICAL EXAMINATION: GENERAL: Chronically ill-appearing and slightly confused patient, in no acute distress. SKIN: Shows the lymphedematous changes. SKELETAL: Shows massive obesity, bilateral ougkl-wtr-rgxm amputations. HEENT: Extraocular movements are full. Vision grossly intact. Hearing intact. Mucous membranes moist. Tongue, buccal mucosa benign. NECK: Supple, no carotid bruits heard. CHEST: Shows some coarse breath sounds with occasional rhonchi. HEART: Regular but distant. ABDOMEN: Soft and nontender. EXTREMITIES: Show the amputations and lymphedema as mentioned above. LABORATORY DATA: Albumin only 1.9. Sodium 133, potassium 3.6, chloride 98, bicarbonate 21, creatinine 7.2, BUN 76, calcium 6.4, phosphorus 8.9, magnesium 1.6. Hemoglobin 8.6. ASSESSMENT AND PLAN: 1. Chronic kidney disease, appears to have chronic and progressive diabetic nephropathy with previously documented proteinuria. At this point, it has reached end-stage and will require chronic dialysis. We will discuss this with her and her , have a tunneled dialysis catheter placed and make arrangements for outpatient treatments. 2. Diabetes mellitus with triopathy. 3. Morbid obesity. 4. Status post bilateral pxjqz-atx-wxjt amputations. [address] [address] CONSULTATION Name: KALPANA BILLS Room #: 453-P [facility] IN M.R.#: [id number] Admission: 08/21/18 ������������������ Attend Phys: Raciel Paris MD Discharge: ������������������ Date of : 67 Report #: [id number] 5. Longstanding lymphedema. 6. Chronic obstructive pulmonary disease with cigarette smoking. ��������������������������������������������� ���������������������������������������� By: ��������������������������������������������� [id number] Ej Fritz MD /nt
[~2018-08-21 15:13] MED LIST changes: +ALBUTEROL2.5 MG/31 INH; +COMBIVENT RESPIM4 GM INH; +PAROXETINE HCL40 MG PO; +RANITIDINE HCL300 M1 PO; +VENTOLIN HFA 1818 GM INH
[2018-08-21 16:45] VITALS: BP 154/61
[2018-08-21 20:34] VITALS: BP 144/63
[2018-08-21] MEDS ORDERED: LIPITOR 20 MG T20 M1 PO (20:39)
[2018-08-21] MEDS ORDERED: CARVEDILOL25 MG PO (20:40)
[2018-08-21] MEDS ORDERED: LASIX 80 MG TAB80 MG PO (20:41)
[2018-08-21] MEDS ORDERED: SYNTHROID175 MCG PO (20:42)
[2018-08-21] MEDS ORDERED: COMBIVENT INH (20:42)
[2018-08-21] MEDS ORDERED: TRAMADOL 50 MG50 MG PO (20:43)
[2018-08-21] MEDS ORDERED: LANTUS SUBQ (20:50)
[2018-08-21 22:47] LABS: HEMATOCRIT 25.3 % (37.0-47.0); HEMOGLOBIN 8.6 gm/dL (12.0-15.0); MCH 29.5 pg (26.0-34.0); MCHC 33.9 g/dL (28.0-37.0); RBC 2.9 mil/uL (4.20-5.00); RDW 14.6 % (10.5-14.5); WBC 10.6 thou/uL (4.0-11.0)
[2018-08-21 23:17] LABS: ALBUMIN 1.9 g/dL (3.4-5.0); ANION GAP 14 mmol/L (7-16); BUN 76 mg/dL (7-18); CALCIUM 6.4 mg/dL (8.5-10.1); CHLORIDE 98 mmol/L (98-107); CHOLESTEROL 144 mg/dL (<200); CO2 21 mmol/L (21-32); CREATININE 7.2 mg/dL (0.6-1.0); GLUCOSE 152 mg/dL (74-106); HDL CHOLESTEROL 35 mg/dL (>40); LDL CHOLESTEROL 89 mg/dL (<100); MAGNESIUM 1.6 mg/dL (1.8-2.4); PHOSPHORUS 8.9 mg/dL (2.5-4.9); POTASSIUM 3.6 mmol/L (3.5-5.1); SGOT 19 U/L (15-37); SGPT 20 U/L (30-65); SODIUM 133 mmol/L (136-145); TC:HDL 4.1 Ratio (Not establshd); TOTAL BILIRUBIN 0.2 mg/dL (<0.1-1.0); TOTAL PROTEIN 5.6 g/dL (6.4-8.2); TRIGLYCERIDE 100 mg/dL (<150); VLDL 20 mg/dL (<40)
[2018-08-22 03:15] VITALS: BP 152/65
--- NOTE | 2018-08-22 04:10 | NUR ---
ASSUMED CARE AROUND 1900. AXOX4. SEEN BY GERALDINE ALVAR[facility]. IVF STARTED. BARIATRIC MATRESS PLCAED. INCONTINENT OF URINE. INITIAL WOUND CARE RENDERED AND PICTURE TAKEN. NO S/S ACUTE DISTRESS NOTED OR REPORTED AT THIS TIME. WILL CONT TO MONITOR FOR ANY CHANGES IN CONDITION.
[2018-08-22 08:16] VITALS: BP 156/60
[2018-08-22 10:13] LABS: HEMOGLOBIN 8.5 gm/dL (12.0-15.0); MCHC 32.8 g/dL (28.0-37.0); MCV 88.2 fL (80.0-100.0); RBC 2.95 mil/uL (4.20-5.00); WBC 10.5 thou/uL (4.0-11.0)
[2018-08-22 10:24] LABS: CALCIUM 6.9 mg/dL (8.5-10.1); CREATININE 7.4 mg/dL (0.6-1.0); MAGNESIUM 1.8 mg/dL (1.8-2.4); POTASSIUM 3.7 mmol/L (3.5-5.1)
[2018-08-22 10:28] LABS: PROTIME 10.1 Seconds (9.3-11.4)
[2018-08-22 11:13] LABS: FOLIC ACID 14.4 ng/mL (8.6-58.9)
--- NOTE | 2018-08-22 14:17 | NUR ---
PT ADMITTED RELATED TO UTI. CM REVIEWED CHART AND SPOKE WITH CARE TEAM. CM MET WITH PT AT BEDSIDE THIS DAY. PT WAS SLEEPY BUT WAS ABLE TO ANSWER ASSESSMENT QUESTIONS. PT INDICATED SHE LIVES IN A HOUSE WITH HER SPOUSE AND 2 KIDS. PT INDICATED SHE HAD USED A POWER WC AND A BSC ADMITTANCE ATTENDANT. PT CONFIRMED SHE HAD [facility]. PT INDICATED SHE PLANS TO RETURN HOME ONCE MEDICALLY STABLE. CM TO FOLLOW INDICATED WITH DC PLANNING. NURSE INDICATED THAT PT IS TO BE GETTING A TUNNELED CATHETER FOR DIALYSIS. CM TO ASSIST WITH DC PLANNING.
--- NOTE | 2018-08-22 14:54 | NUR ---
WOUND CONSULT: PT. WAS SEEN TODAY BY DR. BENITEZ AND MYSELF. PT. IS WELL KNOWN TO THE WOUND CARE TEAM. PT. HAD BLE BKA IN FEBRUARY OF 2017. PT. NOW HAS AN ULCER TO HER LEFT BKA STUMP LATERAL. WOUND DOES NOT APPEAR TO BE INFECTED AT THIS TIME. RECOMMENDATIONS: WOUND CARE TO LEFT BKA STUMP LATERAL: GENTLY CLEANSE AREA WITH WOUND CLEANSER OR NORMAL SALINE, APPLY PURACOL AG TO WOUND BED, COVER WITH OPTIFOAM, COMPLETE CARES DAILY AND PRN. PT. AND STAFF NURSE WERE INSTRUCTED ON PLAN OF CARE.
[2018-08-22 15:32] VITALS: BP 130/50
[2018-08-22 19:14] VITALS: BP 134/58
--- NOTE | 2018-08-22 19:37 | NUR ---
ASSUMED CARE 0700/ A/OX3, SLEEPY/DROWSY THROUG OUT SHIFT AWAKENS WHEN ADDRESSED HOWEVER FALLS BACK TO SLEEP, BM TODAY, MAX ASSIST WITH CARES, DIALYSIS PORT PLACE THIS AFTERNOON. RETURNED TO FLOOR ON 4L NC FOR DESATURTING. DIALYSIS TOMORROW 9AM. WILL BE IN THIS MORING FOR DIALYSIS. PER PATIENT SON OKAY TO RECIEVE MEDICAL INFORMATION. FALL PRECAUTION IN PLACE. CALL LIGHT IN REACH.
--- NOTE | 2018-08-23 02:24 | NUR ---
ASSUMED CARE AROUND 1900. AXOX4. NO S/S ACUTE DISTRESS NOTED OR REPORTED AT THIS TIME. HD ACCESS ON R CHEST INTACT. WILL CONT TO MONITOR FOR ANY CHANGES IN CONDITION.
[2018-08-23 05:17] VITALS: BP 110/42
[2018-08-23 05:54] LABS: % SATURATION 17 % (20-39); IRON 28 ug/dL (50-170); TIBC 162 ug/dL (250-450)
[2018-08-23 06:06] LABS: ALBUMIN 1.7 g/dL (3.4-5.0); CALCIUM 6.5 mg/dL (8.5-10.1); CREATININE 7.7 mg/dL (0.6-1.0); PHOSPHORUS 10.4 mg/dL (2.5-4.9); POTASSIUM 4.1 mmol/L (3.5-5.1)
[2018-08-23 07:34] VITALS: BP 102/55
[2018-08-23 09:04] LABS: HEMATOCRIT 23.8 % (37.0-47.0); HEMOGLOBIN 7.7 gm/dL (12.0-15.0); MCH 28.6 pg (26.0-34.0); MCHC 32.3 g/dL (28.0-37.0); MCV 88.3 fL (80.0-100.0); RBC 2.69 mil/uL (4.20-5.00); RDW 14.9 % (10.5-14.5); WBC 7.8 thou/uL (4.0-11.0)
--- NOTE | 2018-08-23 09:36 | NUR ---
Nutrition: Pt admitted with UTI, ARF. Seen for malnutrition consult. Hx of CKD, DM, CHF, bilat BKA. CKD advanced to ESRD-first dialysis treatment this morning. Pt seen during dialysis, drowsy/confused. Family present but on the phone. Appetite good with 50% intake. Usual 100%, decreased intake x2 days. Was unsure of UBW. Current wt stable with wt hx x1.5 years. A1c 9.0, has been educated 1 year ago. PCM noted - will defer for now until more information obtained. Will provide renal diet education at later date and answer other diet questions/concerns and obtain further information.
[2018-08-23 14:14] VITALS: BP 144/63
--- NOTE | 2018-08-23 15:43 | NUR ---
CM MET WITH PT AT BEDSIDE THIS DAY REGARDING ESTABLISHING PT WITH OP HEMO DIALYSIS UPON [place]. CM INDICATED THAT THERE ARE TWO FACILITIES IN [place] [facility] AND [facility]. PT INDICATED SHE DIDN'T CARE WHICH SHE WAS SET UP WITH CM INDICATED THAT THE [facility] IS 5 [address] FROM HER HOUSE AND THAT [facility] IS 11 [address]. SHE INDICATED TO JUST GO WITH [facility]. CM FAXED ADMISSION FORM AND CLINICALS TO [facility] INTAKE. CM TO FOLLOW INDICATED WITH DC PLANNING.
--- NOTE | 2018-08-23 18:34 | NUR ---
PT A&OX4, VSS, DENIES PAIN. PT REFUSED TURNS TODAY AND NICOTINE PATCH. PT RECEIVED DIALYSIS. BED IN LOWEST POSITION AND CALL LIGHT IN REACH, WILL CONTINUE TO MONITOR.
[2018-08-23 20:08] VITALS: BP 126/50
--- NOTE | 2018-08-24 02:15 | NUR ---
Assumed care at 1845. Pt resting in bed. AOX4. VSS. CM faxed admission forms to [facility] for out patient hemo dialysis. HD access on right chest intact. No identified needs at the moment. Call light within reach. Will continue to monitor.
[2018-08-24 03:45] VITALS: BP 96/50
[2018-08-24 06:04] LABS: HEMATOCRIT 24.4 % (37.0-47.0); MCHC 32.9 g/dL (28.0-37.0); MCV 88.2 fL (80.0-100.0); RBC 2.77 mil/uL (4.20-5.00); RDW 14.4 % (10.5-14.5); WBC 7.9 thou/uL (4.0-11.0)
[2018-08-24 06:12] LABS: ALBUMIN 1.7 g/dL (3.4-5.0); CALCIUM 6.6 mg/dL (8.5-10.1); PHOSPHORUS 8.8 mg/dL (2.5-4.9); POTASSIUM 3.9 mmol/L (3.5-5.1)
[2018-08-24 06:15] LABS: CREATININE 6.6 mg/dL (0.6-1.0)
[2018-08-24 07:25] LABS: URINE BILIRUBIN NEGATIVE (Negative); URINE BLOOD 2+ (Negative); URINE COLOR YELLOW; URINE GLUCOSE-RANDOM* TRACE (Negative); URINE KETONES NEGATIVE (Negative); URINE NITRITE-REFLEX NEGATIVE (Negative); URINE PROTEIN (DIPSTICK) 3+ (Negative); URINE SPECIFIC GRAVITY 1.025 (1.005-1.035); URINE UROBILINOGEN 0.2 E.U./dl (0.2-1.0)
[2018-08-24 07:26] LABS: URINE LEUKOCYTES-REFLEX 1+ (Negative)
[2018-08-24 07:41] LABS: CASTS None Seen /LPF (None Seen); SQUAMOUS 4-10 Moderate /LPF (0-3)
[2018-08-24 07:42] LABS: BACTERIA-REFLEX 1-9 Few /HPF (None Seen); CRYSTALS None Seen /LPF (None Seen); URINE CLARITY HAZYR; URINE RBC 0-2 Rare /HPF (0-2); URINE WBC-REFLEX >25 Many /HPF (0-5)
[2018-08-24 07:43] LABS: YEAST-REFLEX Present (None Seen)
[2018-08-24 08:23] VITALS: BP 122/48
--- NOTE | 2018-08-24 12:39 | NUR ---
WOUND FOLLOW UP: PT. WAS SEEN TODAY BY DR. BENITEZ AND MYSELF. PT. WOUND IS CLEAN AND CLINICALLY IMPROVED AT THIS TIME. RECOMMENDATIONS: CONTINUE WITH CURRENT PLAN OF CARE. PT. AND STAFF NURSE WERE INSTRUCTED ON PLAN OF CARE.
--- NOTE | 2018-08-24 13:53 | NUR ---
Nutrition: Attempted to provide renal diet education today. Pt lethargic, drifting off. Family has not been in room all day. Will wait and address education needs 07/28/18 when patient more alert/family is available.
--- NOTE | 2018-08-24 14:56 | NUR ---
ORDERS RECEIVED FOR EVAL AND TREAT. SPOKE WITH Pt RIGHT BEFORE SHE WAS ABOUT TO GET DIALYSIS. Pt NORMALLY STAYS ON THE FLOOR AT HER HOME AND CRAWLS AROUND ON HANDS AND KNEES. BED IS ONLY A MATTRESS ON THE GROUND. SHE SCOOTS INTO HER POWER CHAIR BY CRAWLING OVER TO THE ENTRANCE TO THEIR GARAGE AND THEN POWER CHAIR SEAT IS LEVEL WITH FLOOR AND SHE USES A SLIDING BOARD TO SLIDE INTO IT. Pt CURRENTLY ON A BARIATRIC BED WITH AIR MATTRESS AND IT IS DIFFICULT FOR HER TO MANUEVER ON IT. Pt STATES SHE WILL GO HOME WITH FIRE DEPARTMENT GETTING HER INTO HER HOME AND PUTTING HER ON HER BED WHICH IS BASICALLY ON THE FLOOR. SHE STATES SHE IS CONFIDENT SHE WILL BE ABLE TO DO THIS AT HOME. THERE CURRENTLY IS NO SAFE WAY TO EVALUATE HER MOBILITY HERE IN THE HOSPITAL. DISCUSSED WITH CASE MANAGEMENT.
--- NOTE | 2018-08-24 16:09 | NUR ---
CM FAXED HEP PANEL AND FLOW SHEETS TO [facility]. CM NOTIFIED THEM THAT PT WILL NEED A [facility] LIFT TO ASSIST WITH TRANSFERS TO AND FROM ELECTRIC WHEELCHAIR TO DIALYSIS CHAIR. STILL AWAITING CONFIRMATION OF PLACEMENT AT A CLINIC A SPECIALIST HAS BEEN ASSIGNED TO THE CASE TO DETERMINE IF THEY WILL BE ABLE TO ACCOMADATE PT AT [place] WITH A SPECIAL CHAIR OR IF PT WILL NEED TO GO TO ANOTHER FACILITY. CM TO FOLLOW INDICATED WITH DC PLANNING. [facility] INTAKE PHONE: FAX:
--- NOTE | 2018-08-24 17:26 | NUR ---
PT A&OX4, VSS, DENIES PAIN. PT RECEIVED DIALYSIS TODAY. PT USES CALL LIGHT APPROPRIATELY, BED IN LOWEST POSITION, NO SIGNS OF DISTRESS. WILL CONTINUE TO MONITOR.
--- NOTE | 2018-08-24 20:00 | HC ---
[facility] [place] [address] CONSULTATION Name: KALPANA BILLS Room #: 453-P ADM IN M.R.#: [id number] Admission: 08/21/18 ������������������ Attend Phys: Raciel Paris MD Discharge: ������������������ Date of : 67 Report #: [id number] THIS REPORT FOR: //name// CC: Nikhil Driver INCOMPLETE DICTATION ENDOCRINE CONSULTATION LOCATION: [facility] room 453. This dictation will be done in a problem-oriented fashion. SUBJECTIVE A 53-year-old white female admitted for swelling, renal failure, etc. Retrospectively, the patient states she was diagnosed with hypothyroidism approximately 2 years ago and begun on thyroid replacement. She is an extremely poor historian and does not remember any of the doses of thyroid replacement, but states that the dosage has not been changed in the recent past. The patient freely admits to missing doses frequently. She does not remember the last time that thyroid level was evaluated on an outpatient basis. She is currently receiving 175 mcg of generic L-thyroxine per day since admission. Otherwise, there is no pertinent endocrine history to report, except for concurrent diabetes and morbid obesity. OBJECTIVE: LABORATORY DATA: From this admission, free T4 of 0.6, TSH of 20.13. Of note is a prior TSH from over one year before, which was also elevated at greater than . DICTATION ENDS HERE. ��������������������������������������������� <ELECTRONICALLY SIGNED> ���������������������������������������� By: Silvino Hemphill MD ��������������������������������������������� 08/24/18 2000 1311 0145 Silvino Hemphill MD /nt
--- NOTE | 2018-08-24 20:00 | HC ---
[facility] [place] [address] [place] [address] CONSULTATION Name: KALPANA BILLS Room #: 453-P ADM IN M.R.#: [id number] Admission: 08/21/18 ������������������ Attend Phys: Raciel Paris MD Discharge: ������������������ Date of : 67 Report #: [id number] THIS REPORT FOR: //name// CC: Nikhil Wright [facility] LABORATORY DATA: Prior TSH from 2017 was also highly elevated at greater than 16. PHYSICAL EXAMINATION: GENERAL: Well-nourished, well-developed, morbidly obese 53-year-old white female, in no acute distress. VITAL SIGNS: The patient is afebrile. Height is reported to be either 5 feet 4 inches or 5 feet 10 inches. Weight is over 550 pounds. The patient is afebrile. NEUROLOGIC: She responds to verbal questioning, but provides limited clinical information. She makes no eye contact. There is a puffy edema throughout. Skin is pale. Deep tendon reflexes appear 2+ and equal. The remainder of the neurologic exam is difficult to evaluate. ASSESSMENT: 1. Hypothyroidism with chronic poor compliance regarding thyroid replacement. 2. Morbid obesity with diabetes mellitus, probably in poor control. In addition, the patient's large body mass will generate a large requirement for replacement of thyroxine. PLAN: 1. Since the patient appears to be chronically unreliable with replacement, it is impossible to exactly evaluate her current replacement needs. Therefore, I would continue the current dosage of 175 mcg per day while attempting to ensure consistent compliance. In addition, now that the patient is receiving sevelamer, which is a potential conflicting substance, the thyroxine replacement must be administered 2 hours before or after all such conflicting substances. Otherwise, there will be potential alterations in absorption. 2. If consistent administration can be guaranteed, repeat thyroid function studies should be performed in 6-8 weeks to evaluate adequacy of current dosage. Thank you very much for this consultation. I will continue to follow the patient with you for evaluation and treatment of thyroid disease. ��������������������������������������������� <ELECTRONICALLY SIGNED> ���������������������������������������� By: Silvino Hemphill MD ��������������������������������������������� 08/24/181999 1315 0155 Silvino Hemphill MD /nt
[2018-08-24 20:03] VITALS: BP 123/41
[2018-08-25 03:45] VITALS: BP 119/53
--- NOTE | 2018-08-25 04:53 | NUR ---
Assumed care at 1845. Pt resting in bed. VSS. AOX4. Changed bedding. External Moreira cath intact. Pt denies pain. [facility] faxed intake documents to [facility] still waiting for placement to [place]. No identified needs at the moment. Will continue to monitor.
[2018-08-25 05:09] LABS: HEPATITIS B SURFACE AG Negative (Negative)
[2018-08-25 05:22] LABS: ALBUMIN 1.7 g/dL (3.4-5.0); CALCIUM 6.7 mg/dL (8.5-10.1); MAGNESIUM 1.8 mg/dL (1.8-2.4); PHOSPHORUS 7.6 mg/dL (2.5-4.9)
[2018-08-25 05:40] LABS: CREATININE 5.3 mg/dL (0.6-1.0)
[2018-08-25 06:36] LABS: HEMATOCRIT 24.3 % (37.0-47.0); HEMOGLOBIN 8.1 gm/dL (12.0-15.0); MCH 29.2 pg (26.0-34.0); MCHC 33.3 g/dL (28.0-37.0); MCV 87.5 fL (80.0-100.0); RBC 2.77 mil/uL (4.20-5.00); RDW 14.6 % (10.5-14.5); WBC 7.6 thou/uL (4.0-11.0)
[2018-08-25 08:12] VITALS: BP 118/56
[2018-08-25 14:17] VITALS: BP 149/67
--- NOTE | 2018-08-25 14:37 | NUR ---
Assumed pt care at 7am.Pt in bed resting at the beginning of shift.Assessment completed.vss but low blood sugar noted.D50 1 amp iv given.30 minutes later blood sugar was improved.Pt has hemodialysis in room and per internal medicine physician report,over 1 liter of fluid was removed today.Pt spouse here and updates given.All am scheduled meds given post dialysis.Dr Paris here,order noted. Will continue to monitor.
[2018-08-25 19:44] VITALS: BP 128/67
--- NOTE | 2018-08-26 04:07 | NUR ---
1900, PT ALERT AND ORIENTED. REPORTS BEING UNCOMFORTABLE AND IN PAIN DUE TO POSITION IN HER BED. PT ADJUSTED TO HER COMFORT. BG HS WAS 75. NO INSULIN GIVEN. APPLE JUICE GIVEN. PT VOIDS PER EXTERNAL FEMALE CATHETER. GOOD OUTPUT. DIALYSIS CATHETER INTACT, DRESSING CLEAN. NO DRAINAGE. FIRM EDEMA BILATERAL UPPER EXTREMITIES AND THIGHS. POSITIONS SHIFTED REGULARLY PER PATIENT COMFORT. VITALS STABLE. NO FURTHER C/O AT THIS TIME. WILL CONTINUE TO FOLLOW PLAN OF CARE.
[2018-08-26 05:19] LABS: HEMATOCRIT 25.6 % (37.0-47.0); HEMOGLOBIN 8.4 gm/dL (12.0-15.0); MCH 28.9 pg (26.0-34.0); MCHC 32.7 g/dL (28.0-37.0); MCV 88.4 fL (80.0-100.0); RBC 2.89 mil/uL (4.20-5.00); RDW 14.3 % (10.5-14.5); WBC 7.7 thou/uL (4.0-11.0)
[2018-08-26 05:29] VITALS: BP 139/69
[2018-08-26 05:37] LABS: CALCIUM 7.2 mg/dL (8.5-10.1); CREATININE 4.5 mg/dL (0.6-1.0); MAGNESIUM 1.8 mg/dL (1.8-2.4); POTASSIUM 4.1 mmol/L (3.5-5.1)
[2018-08-26 07:30] VITALS: BP 129/57
--- NOTE | 2018-08-26 10:20 | NUR ---
PT RESTING IN BED ALERT XS 4 NO PAIN NO RESP DISTRESS NOTED. AT BEDSIDE. IV NURSE PAGED FOR IV PLACEMENT. PT IS DIAYLSIS PATIENT M,W,F. BLOOD SUGARS MONITORED. INSULIN HELD THIS AM DUE TO BLOOD SUGAR = 71 DOCTOR VALORIE AWARE HE WAS ON UNIT AND TOLD. PT PLEASANT AND COOPERATIVE WITH CARE.
--- NOTE | 2018-08-26 15:12 | NUR ---
PT AND BELONGINGS TRANSFERRED AND MOVED TO ROOM 427. REPORT GIVEN TO 4 [facility] CHARGE NURSE.
[2018-08-26 15:21] VITALS: BP 137/51
[2018-08-26 19:30] VITALS: BP 145/52
--- NOTE | 2018-08-27 02:37 | NUR ---
PT AWAKE AND COOPERATIVE WITH ASSESSMENT. A+O X4. BS 84, INSULIN HELD PER PROTOCOL. C/O SOME NAUSEA THIS EVENING. CONTINUES TO HAVE INCONTINANCE OF LOOSE, BROWN STOOL X2. C/O TENDER BOTTOM. TOOK HS MEDS ORDERED. SITTING UP SLEEPING AT THIS TIME.
[2018-08-27 04:54] VITALS: BP 136/54
[2018-08-27 08:49] VITALS: BP 151/59
--- NOTE | 2018-08-27 14:27 | NUR ---
WOUND FOLLOW UP: PT. WAS SEEN TODAY BY DR. BENITEZ AND MYSELF. PT. WOUND TO HER LEFT BKA STUMP IS HEALED AT THIS TIME. WOUND CARE TEAM WILL BE SIGNING OFF AT THIS TIME. RECOMMENDATIONS: CONTINUE WITH PRESSURE ULCER PREVENTION, RE-CONSULT IF NEEDED PT. AND STAFF NURSE WERE INSTRUCTED ON PLAN OF CARE.
[2018-08-27 16:22] VITALS: BP 131/51
--- NOTE | 2018-08-27 18:33 | NUR ---
ASSUMED CARE AT 0700, SHIFT ASSESSMENT DONE, MEDS GIVEN, VSS. DENIES ANY PAIN, NUASEA, VOMITING. HAD S LOOSE STOOL THIS AM. ACHS, NO COVERGE NEEDED THROUGHTOUT THE DAY. WILL CONTINUE TO ASSESS AND ASSIST WITH ADLs NEEDED.
[2018-08-27 20:14] VITALS: BP 127/48
[2018-08-28 04:36] VITALS: BP 119/62
[2018-08-28 07:16] VITALS: BP 129/59
--- NOTE | 2018-08-28 11:53 | NUR ---
PT HAVING DIAYLSIS SINCE 08:00 THIS AM. AM MEDICATIONS TO BE GIVEN AFTER DIAYLSIS. DID APPLY NICOTINE PATCH ORDERED. PT ALERT XS 4 NO PAIN OR RESP DISTRESS AT THE PRESENT. PT STATES GOING HOME AFTER DIAYLSIS.
--- NOTE | 2018-08-28 13:27 | NUR ---
CM CALLED AND CHECKED IN WITH [facility] AND THEY INDICATED THAT THE HIGH ACUITY TEAM WAS STILL DETERMINING IF/WHERE THEY WOULD BE ABLE TO ACOMMODATE PT. CM SENT REFERRAL PACKET TO [facility] TO SEE IF THEY MIGHT BE ABLE TO ACCEPT PT FOR OUTPATIENT HEMODIALYSIS SERVICES. CM SPOKE WITH KIN IN INTAKE AND EXPLAINED SITUATION. PT HAS INDICATED THAT SHE IS GOING TO DISCHARGE TODAY AMA. CM TO CONTINUE TO ATTEMPT TO ESTABLISH OUTPATIENT DIALYSIS. CM TO FOLLOW INDICATED WITH DC PLANNING.
[2018-08-28 13:39] VITALS: BP 129/59
--- NOTE | 2018-08-28 14:02 | NUR ---
PATIENT COMPLETED DIAYLSIS AM MEDS AND IV IRON GIVEN TX'S DONE. PT IS GOING TO GO AMA WHEN GETS HERE.
--- NOTE | 2018-08-28 15:47 | NUR ---
PT LEFT AMA WITH AT THIS TIME. ALL BELONGINGS PACKED AND SENT WITH PATIENT. IV ACSESS DCD. AMA PAPERWORK SIGNED.
== END 2018-08-28 16:13 | disposition left against medical advice (07) | DRG 564 ==
LOC: 4W 15:13 → 4E 08-26 15:11
PROVIDERS: Internal Medicine Nephrology; Nurse Practitioner Acute Care; Radiology Vascular & Interventional Radiology; ADMIT Internal Medicine
PROC: B548ZZA Ultrasonography of Superior Vena Cava, Guidance (ICD-10-PCS; 2018-08-22)
PROC: B5181ZA Fluoroscopy of Superior Vena Cava using Low Osmolar Contrast, Guidance (ICD-10-PCS; 2018-08-22)
PROC: 0JH63XZ Insertion of Tunneled Vascular Access Device into Chest Subcutaneous Tissue and Fascia, Percutaneous Approach (ICD-10-PCS; 2018-08-22)
PROC: 02HV33Z Insertion of Infusion Device into Superior Vena Cava, Percutaneous Approach (ICD-10-PCS; 2018-08-22)
PROC: 5A1D70Z Performance of Urinary Filtration, Intermittent, Less than 6 Hours Per Day (ICD-10-PCS; principal; 2018-08-23)
PROC: 5A1D70Z Performance of Urinary Filtration, Intermittent, Less than 6 Hours Per Day (ICD-10-PCS; 2018-08-24)
PROC: 5A1D70Z Performance of Urinary Filtration, Intermittent, Less than 6 Hours Per Day (ICD-10-PCS; 2018-08-25)
PROC: 5A1D70Z Performance of Urinary Filtration, Intermittent, Less than 6 Hours Per Day (ICD-10-PCS; 2018-08-28)
DX: T87.89 Other complications of amputation stump (principal); N18.6 End stage renal disease; J96.10 Chronic respiratory failure, unspecified whether with hypoxia or hypercapnia; N39.0 Urinary tract infection, site not specified; E46 Unspecified protein-calorie malnutrition; Z68.45 Body mass index [BMI] 70 or greater, adult; I13.2 Hypertensive heart and chronic kidney disease with heart failure and with stage 5 chronic kidney disease, or end stage renal disease; N17.9 Acute kidney failure, unspecified; E11.22 Type 2 diabetes mellitus with diabetic chronic kidney disease; Y83.5 Amputation of limb(s) as the cause of abnormal reaction of the patient, or of later complication, without mention of misadventure at the time of the procedure; E66.01 Morbid (severe) obesity due to excess calories; J44.9 Chronic obstructive pulmonary disease, unspecified; I89.0 Lymphedema, not elsewhere classified; E03.9 Hypothyroidism, unspecified; I50.9 Heart failure, unspecified; E11.51 Type 2 diabetes mellitus with diabetic peripheral angiopathy without gangrene; G47.33 Obstructive sleep apnea (adult) (pediatric); F32.9 Major depressive disorder, single episode, unspecified; E78.5 Hyperlipidemia, unspecified; F17.210 Nicotine dependence, cigarettes, uncomplicated; D64.9 Anemia, unspecified; E83.39 Other disorders of phosphorus metabolism; Z53.21 Procedure and treatment not carried out due to patient leaving prior to being seen by health care provider; Z89.512 Acquired absence of left leg below knee; Z89.511 Acquired absence of right leg below knee; Z88.2 Allergy status to sulfonamides; Z79.4 Long term (current) use of insulin; Z83.3 Family history of diabetes mellitus; Z82.49 Family history of ischemic heart disease and other diseases of the circulatory system; Z79.899 Other long term (current) drug therapy
CPT/HCPCS: 10045; 10047; 10783; 32100

== ENCOUNTER 2018-10-09 20:50 | Inpatient (IN) | payer OTHER ==
[~2018-10-09] VITALS: Ht 177.8 cm; Wt 198.7 kg
[~2018-10-09 20:50] MED LIST changes: +CARVEDILOL25 MG PO; +COMBIVENT INH; +LIPITOR 20 MG T20 M1 PO; +SYNTHROID100 MC1 PO; +TRAMADOL 50 MG50 MG PO
[2018-10-09 23:50] VITALS: BP 134/60
[2018-10-10] MEDS ORDERED: DEXILANT60 MG PO (01:50)
[2018-10-10] MEDS ORDERED: ACIDOPHILUS LA1 EAC1 PO (01:51)
[2018-10-10] MEDS ORDERED: LISINOPRIL20 MG PO (01:52)
[2018-10-10] MEDS ORDERED: HYDROCHLOROTHIA25 M2 PO (01:53)
[2018-10-10] MEDS ORDERED: LYRICA 50 MG50 MG PO (01:54)
[2018-10-10] MEDS ORDERED: PERCOCET 7.5-31 EACH PO (01:54)
[2018-10-10] MEDS ORDERED: PROTONIX40 M1 PO (01:55)
[2018-10-10 04:29] VITALS: BP 136/40
[2018-10-10 07:01] VITALS: BP 138/58
[2018-10-10 07:39] LABS: HEMATOCRIT 24.6 % (37.0-47.0); HEMOGLOBIN 7.9 gm/dL (12.0-15.0); MCH 28.1 pg (26.0-34.0); MCV 87.8 fL (80.0-100.0); RBC 2.8 mil/uL (4.20-5.00); WBC 6.7 thou/uL (4.0-11.0)
[2018-10-10 07:52] LABS: CALCIUM 8.3 mg/dL (8.5-10.1); CREATININE 3.8 mg/dL (0.6-1.0); POTASSIUM 3.3 mmol/L (3.5-5.1)
[2018-10-10] MEDS ORDERED: CLINDAMYCIN HC300 MG PO (09:31)
[2018-10-10] MEDS ORDERED: CLOBETASOL PROP50 M1 TOP (09:33)
--- NOTE | 2018-10-10 15:03 | NUR ---
Assess due to notification of right stump wound. Pt with bilateral BKA. Hx DM, CHF, dialysis. Pt voices good appetite. Wt is actually down 32 lb since August which may be contributed to both true loss vs fluid loss as pt states watching diet closer. Pt states dialysis may be discontinued per renal doctor "if numbers continue to look good". Did have questions regarding K and phos limits for food-provided renal information and food list of foods to choose and limit. Encourage high protein foods. Extreme class III obesity, but otherwise low nutrition risk. No supplemenation needed while appetite is good especially for protein.
--- NOTE | 2018-10-10 15:07 | NUR ---
Assumed pt care at 7am.Pt in bed most of the time but able to repositioned self with assistance.Assessment completed.vss.Dr Lam Titus here,order noted.Pt has good appetite.Later this afternoon,Dr Pierce here,order received.Will change drsce to stump when dakin solution received from Pharmacy. Renal function result was better today and Dr Fritz held hemodialysis.Lab will be reckeck in am.Pt has moderate soft stool today.Pericare given.Will continue to monitor.
--- NOTE | 2018-10-10 15:44 | NUR ---
WOUND CONSULT; ROUNDING WITH DR SANDRA BENITEZ AND CHUCHO CEJA BSN. THIS PLEASANT AND OBESE WOMAN HAS A WOUND TO THE LEFT AKA. IT WAS COVERED WITH A SCABLIKE COVERING UNROOFED BY DR BENITEZ WITH A PICKUP AND A [address] BENITEZ THEN CONTINUED TO CLEAN TO THE POINT OF HEALTHY TISSUE. THE CAPPILARY BLEEDING RESOLVED WITHIN MINUTES. A WOUND CULTURE WAS TAKEN, SENT TO THE LAB APPROPRIATLY. A NORMAL SALINE SOAKED GAUZE TO THE WOUND BED. A SLIGHT PRESSURE DRESSING WAS APPLIED TO THIS WOUND TO STABLLIZE WITH WOUND FURTHER AND TO MAINTAIN HOMOSTASIS. SECONDARILY, APPLIED AN ABD,KERLIX AND KERRY WRAP. RECOMMENDATIONS; LEAVE IN PLACE UNTIL WE SEE THE PATIENT TOMORROW AND ASSESS FOR BLEEDING. DISCUSSED WITH MARCIAL
[2018-10-10 15:50] VITALS: BP 149/59
--- NOTE | 2018-10-10 18:39 | NUR ---
PT ADMITTED RELATED TO WOUND INFECTION. CM REVIEWED CHART AND SPOKE WITH CARE TEAM. CM MET [facility] PT AT BEDSIDE THIS DAY. PT IS A&O X4. CM ROLE INTRODUCED. PT HAD [place] PTD. PT HAD BEEN GOING TO [facility] MONDAY AND MONDAY PT HAS AN ELECTRIC WC FOR HOME USE. SHE LIVES IN A HOUSE WITH HER SPOUSE AND TWO KIDS. PT PLANS TO DC HOME ONCE MEDICALLY STABLE.
[2018-10-10 19:03] VITALS: BP 143/57
--- NOTE | 2018-10-11 04:11 | NUR ---
ASSUMED PT CARE 1899. PT ALERT AND ORIENTED. REASSESSMENT COMPLETE. VSS. IV DRESSING D/I. PT SWITCHED TO BARIATRIC BED. PT DENIES PAIN, DENIES N/V. WOUND DRESSING CHANGE COMPLETE. CALL LIGHT AND PERSONAL ITEMS IN REACH. WILL CONTINUE POC UNTIL EOS.
[2018-10-11 04:19] VITALS: BP 149/55
[2018-10-11 05:13] LABS: % SATURATION 12 % (20-39); ALBUMIN 2.6 g/dL (3.4-5.0); CALCIUM 7.8 mg/dL (8.5-10.1); IRON 21 ug/dL (50-170); POTASSIUM 3.9 mmol/L (3.5-5.1); TIBC 181 ug/dL (250-450)
[2018-10-11 07:15] VITALS: BP 132/64
--- NOTE | 2018-10-11 08:52 | HC ---
[facility] [place] [address] CONSULTATION Name: KALPANA BILLS Room #: 418-P ADM IN M.R.#: [id number] Admission: 10/09/18 ������������������ Attend Phys: Ginette Titus MD Discharge: ������������������ Date of : 67 Report #: [id number] THIS REPORT FOR: //name// CC: Nikhil Titus DATE OF SERVICE: 10/10/2018 ATTENDING PHYSICIAN: Raciel Paris MD. CONSULTATION REQUESTED BY: Dr. Titus REASON FOR CONSULTATION: Antibiotic management. HISTORY OF PRESENT ILLNESS: A 53-year-old white woman with multiple medical problems, is admitted with wound on the right BKA stump. This is ongoing for several weeks to month, had undergone debridement previously. DRUG ALLERGIES: SULFA DRUGS, ANAPHYLAXIS. MEDICATIONS: She is currently on vancomycin loading dose 2000 mg, followed by 500 mg Mondays, Wednesdays, and Fridays post-hemodialysis, but hemodialysis is being stopped as of today. She is also on treatment with carvedilol, atorvastatin, amlodipine, pantoprazole, levothyroxine, insulin glargine subcutaneous b.i.d., famotidine, pregabalin, Lactobacillus acidophilus, furosemide, epoetin rojas weekly, albuterol inhalation treatments, Atrovent and albuterol inhalation treatments, heparin 5000 units subcutaneous b.i.d., Unasyn 3 grams IV every 12 hours, p.r.n. oxycodone, p.r.n. glucose glucagon, p.r.n. acetaminophen, p.r.n. ondansetron. PAST MEDICAL HISTORY: Morbid obesity. Diabetes mellitus. End-stage renal disease, on hemodialysis through a right tunneled dialysis catheter. This has been stopped by Dr. Fritz today. Previous calcaneus osteomyelitis requiring right BKA by Dr. Carlos Ya in 02/2017. She has undergone left BKA as well in the past. SOCIAL HISTORY: See H and P, old records. FAMILY HISTORY: See H and P, old records. REVIEW OF SYSTEMS: Noncontributory. PHYSICAL EXAMINATION: GENERAL: Morbidly obese white woman, in no distress. VITAL SIGNS: Temperature 98.3, pulse 88, respirations 19, BP 138/58, weight [address] [place] [address] CONSULTATION Name: KALPANA BILLS Room #: [address] [place] [address] [place] [facility].#: [id number] Admission: 10/09/18 ������������������ Attend Phys: Ginette Titus MD Discharge: ������������������ Date of : 67 Report #: [id number] pounds, height used to be 5 feet 10 inches. HEENMT: Within range. NECK: Supple, no thyromegaly. BREASTS: Deferred. LUNGS: Clear to auscultation. HEART: S1, S2. No gallop or murmur. ABDOMEN: Morbidly obese, difficult to examine. PELVIC AND RECTAL: Deferred. EXTREMITIES: There is bilateral BKA and the right BKA, there is an ulceration at the tip of the stump with necrotic tissue and some foul odor. NEUROLOGIC: Grossly within normal limits. LABORATORY DATA: Sodium 135, potassium 3.3, BUN 30, creatinine 3.8, glucose 126. WBC 6700, hemoglobin 7.9 g/dL, platelets 287,000. MICROBIOLOGY DATA: Cultures of the right BKA ulceration is pending at the time of this dictation. RADIOLOGY EVALUATION: Chest x-ray revealed no acute cardiopulmonary process. There is a dialysis catheter with its tip near the cavoatrial junction. X-ray of the right BKA stump pending at the time of this dictation. ASSESSMENT: 1. Right below-knee amputation stump ulceration with possible polymicrobic infection. 2. Morbid obesity. 3. Status post bilateral below-knee amputation. 4. Diabetes mellitus. 5. Chronic renal failure, on hemodialysis. 6. SULFA DRUG ALLERGY, ANAPHYLAXIS. SUGGESTIONS: Recommend for the time being, we will continue coverage with vancomycin 3 times weekly. I suspect this is being dosed by pharmacy and we will continue Unasyn 3 grams IV every 12 hours for coverage of gram-negative organism and anaerobic organism. We will try to streamline antibiotic regimen once cultures resulted. Dr. Titus, thank you for requesting my suggestions. ��������������������������������������������� <ELECTRONICALLY SIGNED> ���������������������������������������� By: Keyshawn Pena MD ��������������������������������������������� 10/11/18 0852 1119 Keyshawn Pena MD /nt
--- NOTE | 2018-10-11 10:08 | HC ---
[facility] [place] [address] CONSULTATION Name: KALPANA BILLS Room #: 418-P [facility] IN M.R.#: [id number] Admission: 10/09/18 ������������������ Attend Phys: Ginette Titus MD Discharge: ������������������ Date of : 67 Report #: [id number] THIS REPORT FOR: //name// CC: Nikhil Titus DATE OF SERVICE: 10/10/2018 NEPHROLOGY CONSULTATION: REASON FOR CONSULTATION: Chronic kidney disease. HISTORY OF PRESENT ILLNESS: The patient is well known to our service, presented to our service last month with advanced renal failure and creatinine close to 8. She did not improve with conservative therapy and was started on dialysis. She has been dialyzing twice weekly at the [facility]. She has done reasonably well, but she has a right leg stump wound which has worsened, developed drainage and is foul smelling and she was admitted for that. PAST MEDICAL HISTORY: Bilateral [id number] amputations, longstanding diabetes mellitus, morbid obesity, triopathy, remote history of DE, chronic extensive lymphedema, hypothyroidism, obesity, hypoventilation. ALLERGIES: REPORTEDLY TO SULFA. SOCIAL HISTORY: Longstanding smoker, continues to smoke. HOME MEDICATIONS: Albuterol p.r.n., atorvastatin 20 mg daily, carvedilol 25 mg b.i.d., Dexilant 60 mg daily, furosemide 80 mg b.i.d., hydrochlorothiazide 25 mg daily, insulin, Synthroid 100 mcg daily, lisinopril 20 mg daily, pantoprazole 40 mg daily, oxycodone, Lyrica 150 mg t.i.d., tramadol 50 mg daily. FAMILY HISTORY: Please see old charts. REVIEW OF SYSTEMS: GENERAL: She has been feeling reasonably well. EYES: Vision has been a little bit troubling due to diabetic retinopathy. ENT: Hearing okay, swallows okay. No mouth sores or ulcers. ENDOCRINE: Positive diabetes and thyroid disease. RESPIRATORY: Currently not short of air at rest, chronic smoker. No hemoptysis. CARDIAC: No chest pain, angina or palpitations. GASTROINTESTINAL: No nausea, vomiting, diarrhea or bloody stools. GENITOURINARY: No dysuria, hematuria or renal stones. NEUROLOGIC: Neuropathy in the upper extremities. No seizure, syncope or [facility] [address] [place] [address] CONSULTATION Name: KALPANA BILLS Room #: 418-P [facility] IN .R.#: [id number] Admission: 10/09/18 ������������������ Attend Phys: Ginette Titus MD Discharge: ������������������ Date of : 67 Report #: [id number] stroke. PHYSICAL EXAMINATION: GENERAL: Chronically ill-appearing patient. Mentally clear. SKIN: Lymphedematous changes of the lower extremities. SKELETAL: Massive obesity, bilateral [id number]-[id number] amputations. HEENT: Extraocular movements full. Vision grossly intact. No scleral icterus. Hearing intact. Buccal mucosa benign. NECK: Supple, no carotid bruits or lymphadenopathy. CHEST: Clear to auscultation. HEART: Regular, but distant. ABDOMEN: Soft and nontender. There is a right chest dialysis catheter in place. EXTREMITIES: With amputations and lymphedema. LABORATORY DATA: Hemoglobin is 7.9. Sodium 135, potassium 3.3, chloride 101, bicarbonate 28, BUN 30, creatinine 3.8. ASSESSMENT: 1. Chronic kidney disease. Creatinine seems to be better. Urine output is good. Volume status okay. We will hold off on dialysis and see if possibly we can withdraw dialysis therapy. 2. Wound on the right stump. This will be attended to. 3. Severe chronic lymphedema of lower extremities. 4. Diabetes mellitus with triopathy. 5. Massive obesity. 6. Obstructive sleep apnea. 7. Chronic obstructive pulmonary disease with cigarette smoke. ��������������������������������������������� <ELECTRONICALLY SIGNED> ���������������������������������������� By: Ej Fritz MD ��������������������������������������������� 10/11/18 1008 1056 28 Ej Fritz MD /nt
--- NOTE | 2018-10-11 10:57 | HC ---
[facility] [place] [address] CONSULTATION Name: KALPANA BILLS Room #: 418-P ADM IN M.R.#: [id number] Admission: 10/09/18 ������������������ Attend Phys: Ginette Titus MD Discharge: ������������������ Date of : 67 Report #: [id number] THIS REPORT FOR: //name// CC: Nihkil Titus DATE OF SERVICE: 10/10/2018 CHIEF COMPLAINT: Ulceration to the right below knee amputation stump. HISTORY OF PRESENT ILLNESS: This is a 53-year-old female patient with whom I am familiar from recent hospitalization, has a history of bilateral above-knee amputations, diabetes and end-stage renal disease. She is a direct admit from [facility] due to increasing drainage and pain from her stump wound. She has been on antibiotics, has not been improving, so she is admitted here. I have been asked to see her with regard to wound care. PAST MEDICAL HISTORY: Positive for diabetes mellitus, congestive heart failure, bilateral below-knee amputations, morbid obesity, chronic kidney disease stage 3, hypertension, congestive heart failure, peripheral vascular disease, history of smoking, hypothyroidism, obstructive sleep apnea, venous stasis dermatitis, lymphedema, iron deficiency anemia, depression, hyperlipidemia. FAMILY HISTORY: Positive for diabetes in her mother and congestive heart failure in her father. SOCIAL HISTORY: Negative for alcohol use. She is a daily smoker. Has some history of recreational drug use. ALLERGIES: INCLUDE SULFA. MEDICATIONS: Include insulin, atorvastatin, Coreg, Lasix, Combivent, Synthroid, Ultram, amlodipine, ranitidine, paroxetine, albuterol. REVIEW OF SYSTEMS: CONSTITUTIONAL: The patient denies fever, chills or weight loss. NEUROLOGICAL: The patient denies focal weakness. ENT: The patient denies earache, nasal drainage or sore throat. CARDIOVASCULAR: The patient denies chest pain, palpitations or diaphoresis. PULMONARY: The patient denies cough or shortness of breath. GASTROINTESTINAL: The patient denies nausea, vomiting, diarrhea or abdominal pain. ORTHOPEDIC: The patient notes the ulceration on her right BKA stump region. Other systems in a 14-point review of systems are negative. [facility] [address] [place] [address] CONSULTATION Name: KALPANA BILLS Room #: 418-P [facility] IN .R.#: [id number] Admission: 10/09/18 ������������������ Attend Phys: Ginette Titus MD Discharge: ������������������ Date of : 67 Report #: [id number] PHYSICAL EXAMINATION: VITAL SIGNS: At this time include temperature 36.9, pulse 93, respiratory rate 20, blood pressure 114/59. GENERAL: This is a chronically ill-appearing female patient who appears to be in minimal distress. HEENT: Head normocephalic. Nose and throat are clear. NECK: Supple. LUNGS: Clear. ABDOMEN: Soft, bowel sounds present. Abdomen is obese, nontender. EXTREMITIES: Demonstrate bilateral BKA. There is a circular ulceration, presumably pressure related due to the way that she sits in bed that measures 5.1 x 6.0 x 1.9 cm. There is some black eschar in the center and moderate fibrin and slough around the periphery, some surrounding erythema. Minimal tenderness noted. LABORATORY DATA: Includes. White blood cell count 6.7, hemoglobin 7.9. Sodium 135, potassium 3.3, chloride 101, CO2 of 28, BUN 30, creatinine 3.8, glucose is 126. The right below knee amputation ulceration was debrided sharply at the bedside. Please see separate note. The patient tolerated this well. CLINICAL IMPRESSION: Stage 3 pressure ulceration of the right below-knee amputation site. RECOMMENDATIONS: At this point in time, we will use a moist gauze pressure dressing and then begin quarter strength Dakin's moist gauze b.i.d. to the affected area. We have obtained a culture and sensitivity from the area. We will recommend aggressive nutritional support for maximizing wound healing. Discussed with the patient the need to allow her legs or knees to be extended, so that there is not continued pressure on the end of her stump. The patient is agreeable to current plan of care. I do appreciate being asked to see her in consultation. ��������������������������������������������� <ELECTRONICALLY SIGNED> ���������������������������������������� By: Nikhil Pierce MD ��������������������������������������������� 10/11/18 1057 [id number] Nikhil Pierce MD /nt
--- NOTE | 2018-10-11 10:57 | P ---
[facility] [place] [address] PROCEDURE REPORT Name: KALPANA BILLS Room #: 418-P ADM IN M.R.#: [id number] Admission: 10/09/18 ������������������ Attend Phys: Ginette Titus MD Discharge: ������������������ Date of : 67 Report #: [id number] THIS REPORT FOR: //name// CC: Nikhil Titus DATE OF SERVICE: 10/10/2018 PREPROCEDURE DIAGNOSIS: Stage 2 pressure ulceration to the right below-knee amputation stump. POSTPROCEDURE DIAGNOSIS: Stage 2 pressure ulceration to the right below-knee amputation stump. PROCEDURE PERFORMED: Sharp, full-thickness surgical debridement of 100% of the wound base. DESCRIPTION OF PROCEDURE: After obtaining verbal consent with the patient and a timeout was taken to verify correct patient, site and procedure. The area was prepped and draped in usual sterile fashion. No anesthesia was utilized or required. A #15 bladed scalpel was utilized to carry out a sharp, full-thickness debridement including skin, subcutaneous tissue and fat with exceeding the existing base, removing all necrotic tissue down to healthy, clean bleeding tissue. Estimated blood loss was approximately 3 mL. Pain experience is 0/10. Preprocedure measurement 5.1 x 6.0 x 1.9 cm. Postprocedure measurement of 5.1 x 6.0 x 2.4 cm. A pressure dressing was left in place. The patient tolerated the procedure well. ��������������������������������������������� <ELECTRONICALLY SIGNED> ���������������������������������������� By: Nikhil Pierce MD ��������������������������������������������� 10/11/18 1057 1849 [id number] Nikhil Pierce MD /nt
--- NOTE | 2018-10-11 13:26 | NUR ---
WOUND CARE FOLLOW UP; ROUNDING WITH DR BENITEZ AND [facility] THERAPY TECH. THE RIGHT AKA WOUND LOOKS MUCH BETTER SINCE DEBRIDEMENT. NO BLEEDING, VIABLE TISSUE NOTED. THE PATIENT HAD AN ISSUE WITH THE BARIATRIC BED AND DID NOT WANT IT INFLATED" IT FEELS LIKE MY BED AT HOME" DR BENITEZ AGREED. RECOMMENDATION; CONTINUE PLAN OF CARE. DISCUSSED WITH RN
[2018-10-11 15:28] VITALS: BP 138/60
--- NOTE | 2018-10-11 16:02 | NUR ---
Pt in bed most of the time this shift.Assessment completed.vss.Pt was upset and called Nurse banking center manager that she prefered to be on bariatric bed without air in it.Tito Colindres rn wound care notified and he came to talk to pt but pt still insisted on free air matress.Dr Pierce finally oka pt to do whatever pt want.Dr Pena and Lam here,order noted.Drsg change done by wound care nurse.Will continue to monitor.
[2018-10-11 19:32] VITALS: BP 138/56
--- NOTE | 2018-10-12 02:53 | NUR ---
ASSUMED PT CARE 1899. PT ALERT AND ORIENTED. REASSESSMENT COMPLETE. VSS. IV DRESSING C/D/I. WOUND DRESSING C/D/I. PT DENIES PAIN, DENIES N/V. EXTERNAL FEMALE CATHETER IN PLACE. TESSIO DRESSING C/D/I. CALL LIGHT WITHIN REACH. WILL CONTINUE POC UNTIL EOS.
[2018-10-12 04:12] VITALS: BP 140/58
[2018-10-12 05:14] LABS: HEMATOCRIT 24.4 % (37.0-47.0); HEMOGLOBIN 7.8 gm/dL (12.0-15.0); MCH 28.4 pg (26.0-34.0); MCHC 32.1 g/dL (28.0-37.0); MCV 88.4 fL (80.0-100.0); RBC 2.76 mil/uL (4.20-5.00); RDW 15.5 % (10.5-14.5); WBC 8.1 thou/uL (4.0-11.0)
[2018-10-12 05:47] LABS: ALBUMIN 2.4 g/dL (3.4-5.0); CALCIUM 7.7 mg/dL (8.5-10.1); CREATININE 4.4 mg/dL (0.6-1.0); PHOSPHORUS 5.6 mg/dL (2.5-4.9); POTASSIUM 4.5 mmol/L (3.5-5.1)
[2018-10-12 07:50] VITALS: BP 138/59
--- NOTE | 2018-10-12 12:44 | NUR ---
WOUND CARE FOLLOW UP; ROUNDING TODAY WITH DR BENITEZ AND [facility] BUSINESS ANALYSIS SPECIALIST. THWE WOUND IS DRAMATICALLY BETTER THAN ON ADMISSION. NO S/S OF INFECTION. RECOMMENDATION; SEE DR BENITEZ IN THE CLINIC (CARD GIVEN) PT TO F/U AFTER D/C FOR WOUND CARE AN POSSIBLE PRIMATRIX APPLICATION.
--- NOTE | 2018-10-12 13:23 | NUR ---
Pt in bed alert and oriented x4.Very pleasant and excited about going home today after seen by Dr Valles later today.Assessment completed.vss.Pt has moderate brown stool today and pericare given.Pt has good appetite and took all scheduled meds without difficulty.No verbal c/o.Will continue to monitor.
[2018-10-12 15:48] VITALS: BP 138/59
--- NOTE | 2018-10-12 16:16 | NUR ---
PT HAD [facility] PRIOR TO ADM. IF PT DISCHARGES OVER WEEKEND WITH HH PLEASE FAX DC ORDERS/SUMMARY TO [phone].
[2018-10-12 16:20] VITALS: BP 138/59
[2018-10-12] MEDS ORDERED: AUGMENTIN 500-1 EACH PO (16:25)
[2018-10-12] MEDS ORDERED: DOXYCYCLINE HYC50 MG PO (16:25)
[2018-10-12] MEDS ORDERED: TORSEMIDE20 MG PO (16:26)
[2018-10-12] MEDS ORDERED: NORVASC10 MG PO (16:26)
[2018-10-12 16:38] VITALS: BP 138/59
== END 2018-10-12 17:23 | disposition home health service (06) | DRG 463 ==
LOC: 4E 20:50
PROVIDERS: Hospitalist; Internal Medicine Nephrology; Nurse Practitioner Family; ADMIT Internal Medicine
PROC: 0JBN0ZZ Excision of Right Lower Leg Subcutaneous Tissue and Fascia, Open Approach (ICD-10-PCS; principal; 2018-10-10)
DX: T87.43 Infection of amputation stump, right lower extremity (principal); L89.893 Pressure ulcer of other site, stage 3; N18.6 End stage renal disease; Z68.44 Body mass index [BMI] 60.0-69.9, adult; L03.115 Cellulitis of right lower limb; I13.2 Hypertensive heart and chronic kidney disease with heart failure and with stage 5 chronic kidney disease, or end stage renal disease; E66.01 Morbid (severe) obesity due to excess calories; E03.9 Hypothyroidism, unspecified; E11.40 Type 2 diabetes mellitus with diabetic neuropathy, unspecified; E11.51 Type 2 diabetes mellitus with diabetic peripheral angiopathy without gangrene; F32.9 Major depressive disorder, single episode, unspecified; E78.5 Hyperlipidemia, unspecified; I87.2 Venous insufficiency (chronic) (peripheral); I50.9 Heart failure, unspecified; E11.319 Type 2 diabetes mellitus with unspecified diabetic retinopathy without macular edema; I89.0 Lymphedema, not elsewhere classified; E11.22 Type 2 diabetes mellitus with diabetic chronic kidney disease; Y83.8 Other surgical procedures as the cause of abnormal reaction of the patient, or of later complication, without mention of misadventure at the time of the procedure; J44.9 Chronic obstructive pulmonary disease, unspecified; F17.210 Nicotine dependence, cigarettes, uncomplicated; G47.33 Obstructive sleep apnea (adult) (pediatric); Z79.84 Long term (current) use of oral hypoglycemic drugs; I25.2 Old myocardial infarction; Z89.512 Acquired absence of left leg below knee; Z89.511 Acquired absence of right leg below knee; Z88.2 Allergy status to sulfonamides; Z99.2 Dependence on renal dialysis; Z83.3 Family history of diabetes mellitus; Z82.49 Family history of ischemic heart disease and other diseases of the circulatory system; Y92.89 Other specified places as the place of occurrence of the external cause
CPT/HCPCS: 10783

== ENCOUNTER 2018-10-24 13:55 | Emergency (ER) | payer OTHER ==
[~2018-10-24] VITALS: Ht 170.2 cm; Wt 233.6 kg
[~2018-10-24 13:55] MED LIST changes: +ACIDOPHILUS LA1 EAC1 PO; +AUGMENTIN 500-1 EACH PO; +CLINDAMYCIN HC300 MG PO; +CLOBETASOL PROP50 M1 TOP; +DEXILANT60 MG PO; +DOXYCYCLINE HYC50 MG PO; +HYDROCHLOROTHIA25 M2 PO; +LISINOPRIL20 MG PO; +LYRICA 50 MG50 MG PO; +NORVASC10 MG PO; +PERCOCET 7.5-31 EACH PO; +PROTONIX40 M1 PO; +TORSEMIDE20 MG PO
[2018-10-24 15:50] LABS: ABSOLUTE NEUTROPHILS 5.3 thou/uL (1.4-8.2); BASOPHILS 1.3 % (0.0-2.0); EOSINOPHILS 8.2 % (0.0-3.0); HEMATOCRIT 23.8 % (37.0-47.0); HEMOGLOBIN 7.5 gm/dL (12.0-15.0); LYMPHOCYTES 10.8 % (24.0-44.0); MCH 27.4 pg (26.0-34.0); MCHC 31.7 g/dL (28.0-37.0); MCV 86.4 fL (80.0-100.0); MONOCYTES 7.5 % (1.0-8.0); PLATELET COUNT 320 thou/uL (150-400); POLYS 72.2 % (36.0-66.0); RBC 2.75 mil/uL (4.20-5.00); RDW 15.9 % (10.5-14.5); WBC 7.3 thou/uL (4.0-11.0)
[2018-10-24 15:52] LABS: ANION GAP 8 mmol/L (7-16); BUN 47 mg/dL (7-18); CALCIUM 8.3 mg/dL (8.5-10.1); CHLORIDE 104 mmol/L (98-107); CO2 26 mmol/L (21-32); CREATININE 4.3 mg/dL (0.6-1.0); GLUCOSE 125 mg/dL (74-106); POTASSIUM 4.8 mmol/L (3.5-5.1); SODIUM 138 mmol/L (136-145)
[2018-10-24 16:01] LABS: TROPONIN-I <0.06 ng/mL (<0.06)
[2018-10-24 20:35] VITALS: BP 161/77
--- NOTE | 2018-10-25 09:45 | EKG ---
[facility] [place] [address] ELECTROCARDIOGRAM REPORT Name: KALPANA BILLS Room #: [facility]#: [id number] ������������������ Admission: 10/24/18 ������������������ Attend Phys: Discharge: 10/24/18 ������������������ Date of : 67 Report #: [id number] ����������������������������������������������������������������� [id number] THIS REPORT FOR: //name// [facility] ED Test Date: 2018-10-24 Test Time: 15:59:37 Pat Name: KALPANA BILLS Department: Room: Gender: F Director Of Student Life: : 1965 Requested By: Umberto Fisher Order Number: [id number] MD: Malick Kline Measurements Intervals [place] Rate: 80 P: PA: QRS: 76 QRSD: 119 T: 71 QT: 422 QTc: 487 Interpretive Statements Atrial flutter with varied AV block, Low voltage, extremity and precordial leads Compared to ECG 08/19/2017 12:55:04 atrial flutter has replaced sinus rhythm Low voltage now present Electronically Signed On 10-25-2018 9:45:18 CDT by Malick Kline [email or web address] ��������������������������������������������� <ELECTRONICALLY SIGNED> ���������������������������������������� By: Malick Kline MD, [facility] ��������������������������������������������� 10/25/18 0945 1559 1559 Malick Kline MD, [facility] /EPI
== END 2018-10-24 20:37 | disposition home or self-care (01) ==
LOC: ER 13:55
PROVIDERS: Emergency Medicine
DX: R06.02 Shortness of breath (principal); I11.0 Hypertensive heart disease with heart failure; I50.9 Heart failure, unspecified; I12.9 Hypertensive chronic kidney disease with stage 1 through stage 4 chronic kidney disease, or unspecified chronic kidney disease; E11.22 Type 2 diabetes mellitus with diabetic chronic kidney disease; N18.3 Chronic kidney disease, stage 3 (moderate); E03.9 Hypothyroidism, unspecified; G47.33 Obstructive sleep apnea (adult) (pediatric); F32.9 Major depressive disorder, single episode, unspecified; E78.5 Hyperlipidemia, unspecified; F17.210 Nicotine dependence, cigarettes, uncomplicated; Z88.2 Allergy status to sulfonamides

== ENCOUNTER → 2018-11-26 | Outpatient (CLI) | payer OTHER | LOC: HYPER 11-22 15:22 | DX: T87.89 Other complications of amputation stump (principal); E11.622 Type 2 diabetes mellitus with other skin ulcer; L97.811 Non-pressure chronic ulcer of other part of right lower leg limited to breakdown of skin; L89.893 Pressure ulcer of other site, stage 3; E11.22 Type 2 diabetes mellitus with diabetic chronic kidney disease; I13.0 Hypertensive heart and chronic kidney disease with heart failure and stage 1 through stage 4 chronic kidney disease, or unspecified chronic kidney disease; N18.3 Chronic kidney disease, stage 3 (moderate); I50.9 Heart failure, unspecified; E11.51 Type 2 diabetes mellitus with diabetic peripheral angiopathy without gangrene; I87.2 Venous insufficiency (chronic) (peripheral); I89.0 Lymphedema, not elsewhere classified; E03.9 Hypothyroidism, unspecified; E78.5 Hyperlipidemia, unspecified; E66.01 Morbid (severe) obesity due to excess calories; G47.33 Obstructive sleep apnea (adult) (pediatric); J45.909 Unspecified asthma, uncomplicated; F17.200 Nicotine dependence, unspecified, uncomplicated; Z68.44 Body mass index [BMI] 60.0-69.9, adult; Y83.5 Amputation of limb(s) as the cause of abnormal reaction of the patient, or of later complication, without mention of misadventure at the time of the procedure ==

== ENCOUNTER → 2018-12-31 | Outpatient (CLI) | payer OTHER | LOC: HYPER 06:58 | DX: T87.89 Other complications of amputation stump (principal); L89.893 Pressure ulcer of other site, stage 3; E11.622 Type 2 diabetes mellitus with other skin ulcer; L97.811 Non-pressure chronic ulcer of other part of right lower leg limited to breakdown of skin; E11.22 Type 2 diabetes mellitus with diabetic chronic kidney disease; I13.0 Hypertensive heart and chronic kidney disease with heart failure and stage 1 through stage 4 chronic kidney disease, or unspecified chronic kidney disease; I50.9 Heart failure, unspecified; N18.3 Chronic kidney disease, stage 3 (moderate); E11.51 Type 2 diabetes mellitus with diabetic peripheral angiopathy without gangrene; I87.2 Venous insufficiency (chronic) (peripheral); I89.0 Lymphedema, not elsewhere classified; E03.9 Hypothyroidism, unspecified; G47.33 Obstructive sleep apnea (adult) (pediatric); E66.01 Morbid (severe) obesity due to excess calories; J45.909 Unspecified asthma, uncomplicated; F32.9 Major depressive disorder, single episode, unspecified; F17.200 Nicotine dependence, unspecified, uncomplicated; Z68.44 Body mass index [BMI] 60.0-69.9, adult; Y83.5 Amputation of limb(s) as the cause of abnormal reaction of the patient, or of later complication, without mention of misadventure at the time of the procedure ==

== ENCOUNTER → 2019-01-14 | Outpatient (CLI) | payer OTHER | LOC: HYPER 07:04 | DX: T87.89 Other complications of amputation stump (principal); E11.622 Type 2 diabetes mellitus with other skin ulcer; L89.893 Pressure ulcer of other site, stage 3; L97.811 Non-pressure chronic ulcer of other part of right lower leg limited to breakdown of skin; I87.2 Venous insufficiency (chronic) (peripheral); I89.0 Lymphedema, not elsewhere classified; E11.51 Type 2 diabetes mellitus with diabetic peripheral angiopathy without gangrene; E11.22 Type 2 diabetes mellitus with diabetic chronic kidney disease; I13.0 Hypertensive heart and chronic kidney disease with heart failure and stage 1 through stage 4 chronic kidney disease, or unspecified chronic kidney disease; I50.9 Heart failure, unspecified; N18.3 Chronic kidney disease, stage 3 (moderate); E03.9 Hypothyroidism, unspecified; G47.33 Obstructive sleep apnea (adult) (pediatric); E78.5 Hyperlipidemia, unspecified; J45.909 Unspecified asthma, uncomplicated; E66.01 Morbid (severe) obesity due to excess calories; F32.9 Major depressive disorder, single episode, unspecified; F17.200 Nicotine dependence, unspecified, uncomplicated; Z68.44 Body mass index [BMI] 60.0-69.9, adult; Z79.4 Long term (current) use of insulin; Y83.5 Amputation of limb(s) as the cause of abnormal reaction of the patient, or of later complication, without mention of misadventure at the time of the procedure ==

== ENCOUNTER → 2019-01-25 | Outpatient (CLI) | payer OTHER | LOC: HYPER 07:09 → EDBD 08:30 | DX: T87.89 Other complications of amputation stump (principal); E11.622 Type 2 diabetes mellitus with other skin ulcer; L89.893 Pressure ulcer of other site, stage 3; L97.811 Non-pressure chronic ulcer of other part of right lower leg limited to breakdown of skin; I87.2 Venous insufficiency (chronic) (peripheral); E11.51 Type 2 diabetes mellitus with diabetic peripheral angiopathy without gangrene; I89.0 Lymphedema, not elsewhere classified; E11.22 Type 2 diabetes mellitus with diabetic chronic kidney disease; I13.0 Hypertensive heart and chronic kidney disease with heart failure and stage 1 through stage 4 chronic kidney disease, or unspecified chronic kidney disease; I50.9 Heart failure, unspecified; N18.3 Chronic kidney disease, stage 3 (moderate); E03.9 Hypothyroidism, unspecified; G47.33 Obstructive sleep apnea (adult) (pediatric); E78.5 Hyperlipidemia, unspecified; J45.909 Unspecified asthma, uncomplicated; E66.01 Morbid (severe) obesity due to excess calories; F32.9 Major depressive disorder, single episode, unspecified; Z68.44 Body mass index [BMI] 60.0-69.9, adult; F17.290 Nicotine dependence, other tobacco product, uncomplicated; Z79.4 Long term (current) use of insulin; Y83.5 Amputation of limb(s) as the cause of abnormal reaction of the patient, or of later complication, without mention of misadventure at the time of the procedure ==

== ENCOUNTER 2019-11-20 07:28 | Emergency (ER) | payer OTHER ==
[~2019-11-20] VITALS: Ht 177.8 cm; Wt 172.4 kg
--- NOTE | ~2019-11-20 | EMS ---
[facility] [address] [place] [address] EMS Patient Care Report Name: KALPANA BILLS Room #: REG MJess.#: [id number] Admission: 11/20/19 Attend Phys: Discharge: Date of : 67 Report #: [id number] THIS REPORT FOR: //name// Report Transmitted: 11/20/2019 10:18 EMS Care Summary [place], [place]/[facility] Incident [id number] @ 11/20/2019 07:04 Incident Location [address] Patient KALPANA BILLS Female, 54 Years 1965 Patient Address [address] [place] [id number] Patient History Diabetes,Kidney/Renal Failure,Hyperthyroidism, Patient Allergies Sulfa,Keflex, Patient Medications Albuterol, Aripiprazole, Amlodipine, Atorvastatin, Levothyroxine, Combivent, Humalog, Dulcolax, Carvedilol, Chief Complaint CHEST PAIN Disposition Transported No Lights/[place] Dispatch Reason Chest Pain (Non-Traumatic) Transported To [facility] Narrative DISPATCHED EMERGENCY TO THE SCENE OF A REPORTED CHEST PAIN. UPON ARRIVAL, FOUND PATIENT SITTING UPRIGHT IN A DIALYSIS CHAIR, ALERT AND ORIENTED X4, COMPLAINING OF BACK PAIN AND CHEST PAIN. PATIENT STATES THAT WHILE SHE WAS [facility] [address] [place] [address] EMS Patient Care Report Name: KALPANA BILLS Room #: REG NATASHA Jimenez#: [id number] Admission: 11/20/19 Attend Phys: Discharge: Date of : 67 Report #: [id number] DOING HER DIALYSIS, SHE DEVELOPED CHEST PAIN AND BACK PAIN. AFTER BEING RE-INFUSED, THE CHEST PAIN SUBSIDED. PATIENT DENIES ANY CHEST PAIN AT THIS TIME. PATIENT CONTINUES TO COMPLAIN OF BACK PAIN AND RATES HER PAIN 4/10. PATIENT REQUESTS TRANSPORT TO [facility] FOR EVALUATION. PATIENT IS TRANSFERRED TO THE COT VIA [facility] AND SECURED. TRANSPORTED TO AMBULANCE, LOADED, AND SECURED. VITAL SIGNS ASSESSED. 3-LEAD ECG REVEALS NORMAL SINUS RHYTHM WITHOUT ECTOPY. 12-LEAD ECG REVEALS NORMAL SINUS RHYTHM WITHOUT ST ELEVATION OR DEPRESSION. PATIENT TRANSPORTED IN A POSITION OF COMFORT TO [facility] WITHOUT INCIDENT OR CHANGE IN CONDITION. VITAL SIGNS MONITORED DURING TRANSPORT. PATIENT CARE TRANSFERRED TO ED STAFF. Initial Vitals @07:23P: 83,R: 18,BP: 90/68,Pain: 3/10,GCS: 15,CO: 8,SpO2: 96,Revised Trauma: 12, @07:20P: 83,R: 18,Pain: 3/10,GCS: 15,SpO2: 97,MA Suspected: false @07:21P: 81,R: 18,Pain: 3/10,GCS: 15,SpO2: 97,MA Suspected: false @07:17P: 86,R: 18,BP: 90/64,Pain: 3/10,GCS: 15,Glucose: 161,SpO2: 97,Revised Trauma: 12, Assessments @07:13MENTAL:Person Oriented,Time Oriented,Event Oriented,Place Oriented,SKIN:HEENT:Head/Face: No Abnormalities,Neck/Airway: No Abnormalities,LUNG SOUNDS:General: No Abnormalities,ABDOMEN:General: No Abnormalities,PELVIS//GI:No Abnormalities,EXTREMITIES:Capillary Refill: Right Upper: < 2 Sec,Left Arm: No Abnormalities,Right Arm: No Abnormalities,Left Leg: No Abnormalities,Right Leg: No Abnormalities,PULSE:Radial: 2+ Normal,NEURO:No Abnormalities, Impression Chest Pain / Discomfort Procedures @07:2011-Lead ECGResponse: UnchangedSucceeded@07:2112-Lead ECGResponse: UnchangedSucceeded@07:13ALS AssessmentResponse: UnchangedSucceeded@07:203-Lead ECGResponse: UnchangedSucceeded Timeline 07:02,Call Received 07:02,Dispatch Notified 07:04,Dispatched 07:05,En Route 07:10,On Scene 07:13,At Patient 07:13,ALS Assessment,Response: UnchangedSucceeded, 07:17,BP: 90/64 M,PULSE: 86,RR: 18 R,SPO2: 97 Ox,ETCO2: ,B,PAIN: 3,GCS: 15, [facility] [address] [facility] [place] [address] EMS Patient Care Report Name: NEGARKALPANA Kristen [id number] Admission: 11/20/19 Attend Phys: Discharge: Date of : 67 Report #: [id number] 07:20,3-Lead ECG,Response: UnchangedSucceeded, 07:20,12-Lead ECG,Response: UnchangedSucceeded, 07:20,BP: / M,PULSE: 83,RR: 18 R,SPO2: 97 Ox,ETCO2: ,BG: ,PAIN: 3,GCS: 15, 07:21,12-Lead ECG,Response: UnchangedSucceeded, 07:21,BP: / M,PULSE: 81,RR: 18 R,SPO2: 97 Ox,ETCO2: ,BG: ,PAIN: 3,GCS: 15, 07:23,Depart Scene 07:23,BP: 90/68 M,PULSE: 83,RR: 18 R,SPO2: 96 Ox,ETCO2: ,BG: ,PAIN: 3,GCS: 15, 07:26,At Destination 07:40,Call Closed Disclaimer v1.1 Copyright 2020 [employer] This EMS Care Summary contains data elements from the applicable legal record (which may be displayed differently). It is designed to provide pertinent information for the following purposes: continuity of care, clinical quality, and state data reporting. The complete legal record is available to ED staff and administrators of the receiving hospital in [employer]'s Patient Tracker. All data is provided "as is."
[2019-11-20 08:30] LABS: ABSOLUTE NEUTROPHILS 14.8 thou/uL (1.4-8.2); BASOPHILS 0.6 % (0.0-2.0); EOSINOPHILS 2.6 % (0.0-3.0); HEMATOCRIT 39.2 % (37.0-47.0); HEMOGLOBIN 12.7 gm/dL (12.0-15.0); LYMPHOCYTES 4.4 % (24.0-44.0); MCH 30.4 pg (26.0-34.0); MCHC 32.5 g/dL (28.0-37.0); MCV 93.7 fL (80.0-100.0); MONOCYTES 5.9 % (1.0-8.0); PLATELET COUNT 295 thou/uL (150-400); POLYS 86.5 % (36.0-66.0); RBC 4.19 mil/uL (4.20-5.00); RDW 16.8 % (10.5-14.5); WBC 17.1 thou/uL (4.0-11.0)
[2019-11-20 08:41] LABS: ANION GAP 19 mmol/L (7-16); BUN 74 mg/dL (7-18); CALCIUM 7.2 mg/dL (8.5-10.1); CHLORIDE 96 mmol/L (98-107); CO2 19 mmol/L (21-32); CREATININE 12.8 mg/dL (0.6-1.0); GLUCOSE 178 mg/dL (74-106); POTASSIUM 4.8 mmol/L (3.5-5.1); SODIUM 134 mmol/L (136-145)
[2019-11-20 08:51] LABS: ALBUMIN 2.9 g/dL (3.4-5.0); DIRECT BILIRUBIN 0.1 mg/dL (<0.1-0.2); SGOT 11 U/L (15-37); SGPT 14 U/L (30-65); TOTAL BILIRUBIN 0.5 mg/dL (0.2-1.0); TOTAL PROTEIN 6.7 g/dL (6.4-8.2); TROPONIN-I <0.06 ng/mL (<0.06)
[2019-11-20] MEDS ORDERED: NORCO 5-325 TA1 EAC2 PO (11:47)
[2019-11-20] MEDS ORDERED: ZOFRAN ODT4 MG PO (11:47)
[2019-11-20 11:56] VITALS: BP 92/48
--- NOTE | 2019-11-20 13:50 | EKG ---
[facility] [place] [address] ELECTROCARDIOGRAM REPORT Name: KALPANA BILLS Room #: [facility]#: [id number] Admission: 11/20/19 Attend Phys: Discharge: 11/20/19 Date of : 67 Report #: [id number] THIS REPORT FOR: cc: Dionna Astudillo,Denzel Pate MD ~ THIS REPORT FOR: //name// [facility] ED Test Date: 2019-11-20 Test Time: 07:35:49 Pat Name: KALPANA BILLS Department: Room: Gender: F Pulling Unit Operator: kia : 1965 Requested By: Gaye Pichardo Order Number: [id number] MD: Denzel Pena Measurements Intervals [place] Rate: 80 P: 82 MA: 194 QRS: 20 QRSD: 94 T: 62 QT: 407 QTc: 470 Interpretive Statements Sinus rhythm Low voltage, extremity and precordial leads Compared to ECG 10/24/2018 15:59:37 Atrial flutter no longer present Electronically Signed On 11-20-2019 13:50:09 CDT by Denzel Pena [email or web address] <ELECTRONICALLY SIGNED> By: Denzel Pena MD 11/20/19 1350 0735 Denzel Pena MD /EPI
== END 2019-11-20 11:56 | disposition home or self-care (01) ==
LOC: ER 07:28
PROVIDERS: Emergency Medicine
DX: R07.9 Chest pain, unspecified (principal); I13.0 Hypertensive heart and chronic kidney disease with heart failure and stage 1 through stage 4 chronic kidney disease, or unspecified chronic kidney disease; N18.3 Chronic kidney disease, stage 3 (moderate); I50.9 Heart failure, unspecified; E03.9 Hypothyroidism, unspecified; E78.5 Hyperlipidemia, unspecified; F17.210 Nicotine dependence, cigarettes, uncomplicated; Z79.4 Long term (current) use of insulin; Z79.899 Other long term (current) drug therapy; Z88.2 Allergy status to sulfonamides; Z88.8 Allergy status to other drugs, medicaments and biological substances

== ENCOUNTER 2021-02-09 14:20 | Inpatient (IN) | payer OTHER ==
[~2021-02-09] VITALS: Ht 154.9 cm; Wt 191.9 kg
--- NOTE | ~2021-02-09 | EKG ---
[address] [address] ELECTROCARDIOGRAM REPORT Name: KALPANA BILLS Room #: 238-P ADM IN M.R.#: [id number] Admission: 02/09/21 Attend Phys: Ugo Freeman MD Discharge: Date of : 67 Report #: [id number] [facility] Test Date: 2021-02-17 Test Time: 13:22:58 Pat Name: KALPANA BILLS Department: Room: 238 P Gender: F Frame Coverer: MAX : 1965 Requested By: Steven Vernon Order Number: [id number] MD: Measurements Intervals [place] Rate: 118 P: ME: QRS: 37 QRSD: 92 T: 15 QT: 332 QTc: 466 Interpretive Statements Atrial fibrillation Borderline low voltage, extremity leads Compared to ECG 02/16/2021 15:18:13 T-wave abnormality no longer present [email or web address] By: 1322 1322 Rosette Dinero MD /EPI
[~2021-02-09 14:20] MED LIST changes: +CARVEDILOL12.5 MG PO; -CARVEDILOL25 MG PO; +NORCO 5-325 TA1 EAC2 PO; +ZOFRAN ODT4 MG PO
[2021-02-09 14:30] VITALS: BP 118/43
[2021-02-09] MEDS ORDERED: OXYCODONE-APAP1 TAB PO (14:48)
[2021-02-09] MEDS ORDERED: ARIPIPRAZOLE10 MG PO (14:49)
[2021-02-09 15:49] LABS: ABSOLUTE NEUTROPHILS 17.2 thou/uL (1.4-8.2); BASOPHILS 0.2 % (0.0-2.0); EOSINOPHILS 0.8 % (0.0-3.0); HEMATOCRIT 29.8 % (37.0-47.0); HEMOGLOBIN 9.6 gm/dL (12.0-15.0); LYMPHOCYTES 2.2 % (24.0-44.0); MCH 31.4 pg (26.0-34.0); MCHC 32.1 g/dL (28.0-37.0); MCV 97.8 fL (80.0-100.0); PLATELET COUNT 280 thou/uL (150-400); POLYS 90.8 % (36.0-66.0); RBC 3.05 mil/uL (4.20-5.00)
[2021-02-09 16:31] LABS: ALBUMIN 2.6 g/dL (3.4-5.0); CALCIUM 8.5 mg/dL (8.5-10.1); CREATININE 7.6 mg/dL (0.6-1.0); POTASSIUM 4.8 mmol/L (3.5-5.1); TOTAL BILIRUBIN 0.5 mg/dL (0.2-1.0); TOTAL PROTEIN 6.9 g/dL (6.4-8.2)
[2021-02-09 19:39] VITALS: BP 121/33
[2021-02-09 20:56] VITALS: BP 95/50
--- NOTE | 2021-02-10 00:35 | NUR ---
Pt admitted from ED at 2030. A/OX4,drowsy. VSS C/o pain to left inner thigh all the way to buttocks area reliefed by pain meds. Pt has timothy BKA,reports uses a board to slide onto scooter at home. Continent of bowels via bucket and oliguric does get dialysis on M,,o right chest cath is mulfunctional and she hasn't received dialysis in a week. Fall safety reinforced and pt agrees to call for help as needed,resting quietly at this time will continue to monitor pt.
--- NOTE | 2021-02-10 07:19 | EKG ---
[place] [address] [place] [address] ELECTROCARDIOGRAM REPORT Name: KALPANA BILLS Room #: 456-P ADM IN M.R.#: [id number] Admission: 02/09/21 Attend Phys: Ugo Freeman MD Discharge: Date of : 67 Report #: [id number] [facility] ED Test Date: 2021-02-09 Test Time: 16:40:23 Pat Name: KALPANA BILLS Department: Room: 456 Gender: F Mobile Tester: : 1965 Requested By: Alli Akbar Order Number: [id number] MD: Zi Schilling Measurements Intervals [place] Rate: 102 P: DC: QRS: 55 QRSD: 114 T: 31 QT: 331 QTc: 432 Interpretive Statements Atrial flutter Ventricular premature complex Borderline intraventricular conduction delay Low voltage, extremity and precordial leads Compared to ECG 11/20/2019 07:35:49 Ventricular premature complex(es) now present ST (T wave) deviation now present Sinus rhythm no longer present Electronically Signed On 02-10-2021 7:19:02 CDT by Zi Schilling [email or web address] <ELECTRONICALLY SIGNED> By: Zi Schilling MD, FACC 02/10/21 0719 1640 1640 Zi Schilling MD, FAC /EPI
[2021-02-10 07:40] VITALS: BP 97/48
[2021-02-10] MEDS ORDERED: NORVASC5 MG PO (08:29)
--- NOTE | 2021-02-10 08:49 | NUR ---
Admit with cellulitis left inner thigh, red, swelling. Hx class III extreme obesity, BMI 76, DM, ESRD/dialysis, CHF, bilateral BKA. Wts have increased 22 lb since 10/2019. Appetite adequate. BG up to 436-will add carb control diet to order. Low nutrition risk.
[2021-02-10 09:31] LABS: ABSOLUTE NEUTROPHILS 17.9 thou/uL (1.4-8.2); BASOPHILS 0.4 % (0.0-2.0); EOSINOPHILS 1.1 % (0.0-3.0); HEMOGLOBIN 9.1 gm/dL (12.0-15.0); LYMPHOCYTES 2.5 % (24.0-44.0); MCH 30.5 pg (26.0-34.0); MCHC 31.2 g/dL (28.0-37.0); MCV 97.8 fL (80.0-100.0); MONOCYTES 6.6 % (1.0-8.0); PLATELET COUNT 300 thou/uL (150-400); POLYS 89.4 % (36.0-66.0); RBC 2.96 mil/uL (4.20-5.00)
[2021-02-10 09:44] LABS: CALCIUM 8.6 mg/dL (8.5-10.1); CREATININE 8.3 mg/dL (0.6-1.0); MAGNESIUM 1.8 mg/dL (1.8-2.4); PHOSPHORUS 4.6 mg/dL (2.5-4.9); POTASSIUM 5.4 mmol/L (3.5-5.1)
--- NOTE | 2021-02-10 12:23 | NUR ---
Case opened to follow for dc planning. Pt is a&ox4 and lives with her spouse and children in [place]. She is known to from inpt stay September2018 for infected rt stump. She has hx of bilat BKA's in 2017. She uses a scooter, sliding board, and hospital bed at home. Ramp to enter the home. Her spouse takes her to dialysis MWF at [facility]. She reports that she has not been able to dialyze for a week due to problems with her access. Renal to see her. She is being treated for lt thigh abcess and has been started on iv atb. She does not have HH currently but has had [facility] in the past. She has a homemaker per [place] medicaid HBC[place] program for 3.5 hrs each weekday Monday to Monday that helps with personal care and light housekeeping. She denies any dc concerns at this time. Spouse is at bedside visiting this am and is supportive. She is open to HH rn medical surgical if needed at [place] and would like to use [facility] again if possible. [facility] is aware that she is currently inpt. Will follow to resume her outpt dialysis and possible hh referral at [place].
--- NOTE | 2021-02-10 13:13 | NUR ---
ORDERS RECEIVED FOR EVAL AND TREAT. Pt IN SIMILAR SITUATION PREVIOUS ADMIT IN 2019. Pt NORMALLY STAYS ON THE FLOOR AT HER HOME AND CRAWLS AROUND ON HANDS AND KNEES. BED IS ONLY A MATTRESS ON THE GROUND. SHE SCOOTS INTO HER POWER CHAIR BY CRAWLING OVER TO THE ENTRANCE TO THEIR GARAGE AND THEN POWER CHAIR SEAT IS LEVEL WITH FLOOR AND SHE USES A SLIDING BOARD TO SLIDE INTO IT. Pt HOPING TO GET PROSTHESES AT THE END OF THE YEAR. Pt DECLINING THERAPIES SUGGESTION TO HAVE POWER CHAIR BROUGHT TO HOSPITAL FOR HER TO DEMONSTRATE A SLIDE TRANSFER FROM THE BED STATING SHE WOULD EASILY BE ABLE TO DO IT AND NO NEED TO DEMONSTRATE.
[2021-02-10 15:15] VITALS: BP 99/68
[2021-02-10 19:55] VITALS: BP 96/45
[2021-02-11 06:12] LABS: HEMATOCRIT 26.9 % (37.0-47.0); HEMOGLOBIN 8.5 gm/dL (12.0-15.0); MCH 30.8 pg (26.0-34.0); MCHC 31.8 g/dL (28.0-37.0); RBC 2.77 mil/uL (4.20-5.00); RDW 13.8 % (10.5-14.5); WBC 18.4 thou/uL (4.0-11.0)
[2021-02-11 06:24] LABS: CALCIUM 8.7 mg/dL (8.5-10.1); CREATININE 8.4 mg/dL (0.6-1.0); MAGNESIUM 1.8 mg/dL (1.8-2.4); POTASSIUM 5.2 mmol/L (3.5-5.1)
--- NOTE | 2021-02-11 07:43 | NUR ---
Pt A/OX4,VSS. Denies pain on assessment. Had about 500ml out during dialysis d/t right chest catheter mulfunctioning,cathflo administered a few times by dialysis nurse. Pt is oliguric. Fall precautions in place,calls approp for help. Moisture barrier to coccyx/left thigh.
[2021-02-11 08:15] VITALS: BP 119/84
--- NOTE | 2021-02-11 09:29 | NUR ---
OT RECEIVED ORDERS FOR EVAL AND TREAT. CHART REVIEWED, SPOKE WITH Annette REGARDING PT. PRIOR ADMISSIONS AND THERAPY NEEDS. OT SPOKE WITH PT. AT 0836 THIS AM, PT. REPORTS PLAN TO RETURN HOME AND ABLE TO FUNCTION SHE WAS PRIOR TO THIS ADMISSION. PT. STATES SHE CRAWLS ON HANDS AND KNEES ON THE FLOOR OF HER HOME, ABLE TO CRAWL TO ENTRANCE OF GARAGE AND THE SEAT OF HER POWER CHAIR LOWERS TO GROUND LEVEL, PT. USES SLIDEBOARD TO SCOOT TO POWER CHAIR. REPORTS BED MATRESS IS ALSO GROUND LEVEL. PT. DECLINES OT NEEDS AT THIS TIME. OT ASSURES PT. IF HER NEEDS CHANGE, SHE MAY INFORM NURSING AND OT WILL RETURN TO EVALUATE. D/C PT. FROM OT AT THIS TIME PT. IS FORMALLY DECLINING EVALUATION.
--- NOTE | 2021-02-11 09:58 | NUR ---
PT RECIEVING DILYSIS THIS AM.
[2021-02-11 10:41] LABS: HEMATOCRIT 27.6 % (37.0-47.0); HEMOGLOBIN 8.9 gm/dL (12.0-15.0); MCHC 32.2 g/dL (28.0-37.0); MCV 96.5 fL (80.0-100.0); RBC 2.86 mil/uL (4.20-5.00); RDW 13.6 % (10.5-14.5); WBC 19.3 thou/uL (4.0-11.0)
[2021-02-11 10:57] LABS: INR 1.06; PROTIME 11.5 Seconds (10.5-12.1)
--- NOTE | 2021-02-11 12:26 | HC ---
[facility] [place] [address] CONSULTATION Name: KALPANA BILLS Room #: 456-P ADM IN M.R.#: [id number] Admission: 02/09/21 Attend Phys: Ugo Freeman MD Discharge: Date of : 67 Report #: [id number] THIS REPORT FOR: cc: Kyle Driver MD, Samuel D. MD Barry, Joseph W. MD ~ DATE OF SERVICE: 02/10/2021 INFECTIOUS DISEASE CONSULTATION ATTENDING PHYSICIAN: Dr. Freeman. REASON FOR EVALUATION: Inflammatory eruption involving the posterior aspect of the left proximal lower extremity with early abscess and cellulitis. HISTORY OF PRESENT ILLNESS: Chart reviewed. The patient was examined. This is a 55-year-old woman with known history of diabetes mellitus that has been poorly controlled, that has been with severe complications, has bilateral [id number] amputations. Also, has end-stage renal disease, on hemodialysis, who noted onset of posterior medial, sounds like a papular lesion, is unaware of any antecedent injury. This progressed, became quite painful, began to drain over the course of the last 1-2 days prior to admission, not clear that she had any fevers. She admits to being feeling cold. She attributed to the dialysis. She notes no previous history of similar concern about infection. She was referred to the Emergency Room. Coronavirus testing was negative. Lactic acid 1.7. Initial CBC showed a white count of 19,000. She was hyponatremic with a sodium of 125 and a blood sugar of 436. Procalcitonin of 0.87. Chest x-ray showed no acute process. Ultrasound was done due to her size, unable to fit in the CT. There is no evidence of localized fluid collection to suggest abscess. Blood cultures collected at time of admission are sterile thus far. Per the nurse noted started draining some purulent material. She was empirically started on combination therapy with vancomycin and Zosyn. ALLERGIES: LISTED TO LATEX, SULFA, CEPHALEXIN, although she is able to take penicillins. CURRENT MEDICATIONS: Include levothyroxine, pantoprazole, vancomycin, pregabalin, ____, insulin, amlodipine, carvedilol, atorvastatin. 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 Also cardiomyopathy with congestive heart failure, morbid obesity, hypertension, peripheral vascular disease, hypothyroidism, iron deficiency anemia, depression. SOCIAL HISTORY: Currently smokes marijuana, a pack a [place] [address] CONSULTATION Name: KALPANA BILLS Room #: 456-P [facility] IN M.R.#: [id number] Admission: 02/09/21 Attend Phys: Ugo Freeman MD Discharge: Date of : 67 Report #: [id number] Occasional ethanol. FAMILY HISTORY: Noncontributory. REVIEW OF SYSTEMS: Otherwise, denies any significant pulmonary or gastrointestinal related complaints. PHYSICAL EXAMINATION: GENERAL: She appears somewhat chronically ill. She is generally lucid, in moderate distress. VITAL SIGNS: Temperature 98.5, pulse 94, respirations 18, blood pressure 97/48. SKIN: Warm, dry. No rashes. HEENT: Normocephalic. Extraocular muscles intact. NECK: Supple. LUNGS: Diminished breath sounds. HEART: Regular, borderline tachycardic. I do not appreciate a murmur. ABDOMEN: Obese, firm, nontender. EXTREMITIES: Bilateral AKA noted. GENITOURINARY AND RECTAL: Deferred. LABORATORY DATA: Electrolytes: Sodium 127, potassium 5.4, chloride 92, bicarbonate 24, anion gap of 11, BUN and creatinine 52 and 8.3. EGFR of 5. CBC: White count of 20.0, H and H ____ and 29.0, platelets of 300. Blood cultures sterile thus far. IMAGING: As described above. ASSESSMENT AND PLAN: Inflammatory eruption, posterior medial, proximal left thigh with apparent early abscess and cellulitis. We will continue empiric therapy at this point with vancomycin and Zosyn. It may well be localizing, would have Surgery evaluate. May benefit from debulking with I and D. This would leave her with a ____ wound. However, at this point, she is not overtly toxic, although she is in significant discomfort and pain. We will add incentive spirometry. Certainly at risk for additional complications. <ELECTRONICALLY SIGNED> By: Tyrese Cota MD 02/11/21 1226 1409 2221 Tyrese Cota MD /nt
[2021-02-11 15:10] VITALS: BP 110/53
--- NOTE | 2021-02-11 18:36 | NUR ---
PT TURNED SELF IN BED TODAY AND WAS ASSESSED BY PT/OT. TAKING IN GOOD PO AND REMAINS ON ROOM AIR. WILL CONTINUE TO ASSESS.
[2021-02-11 20:38] VITALS: BP 104/46
--- NOTE | 2021-02-12 03:44 | NUR ---
Pt A/OX4,VSS. C/o back pain,medicated per EMAR with relief reported. Pt dialysed yesterday 2L taken out reports she just feels tired. Pt has been NPO since midnight for new dialysis cath placement by IR. Fall precautions in place calls approp for help. Wound care done as ordered to L/RIT,coccyx w/o problems voiced. Resting queitly w/o distress noted,will continue to monitor pt.
[2021-02-12 05:50] VITALS: BP 122/96
[2021-02-12 08:17] VITALS: BP 128/90
--- NOTE | 2021-02-12 09:54 | NUR ---
Patient left unit to go to IR for replacement of dialysis catheter with IR Nurse Aparna. in room and aware of situation
--- NOTE | 2021-02-12 11:22 | NUR ---
Patient off floor to have EGD done.
--- NOTE | 2021-02-12 12:18 | NUR ---
PT HAD DIALYSIS PORT CHANGED THIS DAY. IT IS INDICATED THAT PT IS TO HAVE DIALYSIS TODAY AND TOMORROW. ID INDICATED THAT THEY ANTICIPATE PT WILL DO ON ORAL ABX AND TO GET VANC 750M WITH DIALYSIS 3X/WEEK FOR TWO WEEKS. CM FAXED CLINICAL AND VANC SCRIPT TO [facility]. CM TO FOLLOW UP WITH PT AND CARE TEAM REGARDING HH WITH [facility].
--- NOTE | 2021-02-12 15:24 | NUR ---
[address] Freeman to inform him that yonny has no IV access and unable to place new IV. stated to call Dr. Cota and ask how long IV abx will be given. stated if greater than [address] order for PICC line and there is no need to get nephrology approval at this time. If less than one day have IV team place ultrasound guided PIV.
--- NOTE | 2021-02-12 15:56 | NUR ---
Spoke with Nitza TOTH team RN and she stated she is unable to placed a PICC line on patient. She agreed to place a PIV. However, since patient is on dialysis at the time she is not able. and she will not be here after dialysis. She stated to give abx to dialysis nurse and have infectious diseases physician run abx. She will place line in morning. I expressed my concern for having no access for patient overnight and was told there is nothing else we can do.
--- NOTE | 2021-02-12 18:43 | NUR ---
Patient had a good day today, new dialysis catheter placed by IR. PIV placed by IV Team, dialysis running now with dialysis nurse. VSS. visited all questions and concerns were addressed.
[2021-02-12 20:57] VITALS: BP 101/47
[2021-02-13 07:08] LABS: HEP B SURFACE Ab(ANTI-HBS Non Reactive (()); HEPATITIS B SURFACE AG Negative (Negative)
[2021-02-13 07:20] VITALS: BP 105/47
--- NOTE | 2021-02-13 08:07 | NUR ---
PT SLEPT INTERMITTENTLY, REPORTS NO PAIN OR DISCOMFORT, UTILIZED COMMODE NEEDED, DIALYZED 4L ON 02/12 ANOTHER PROCEDURE SCHEDULED FOR TODAY AT 0900, WOUND TREATMENT IN PROGRESS, COMPLIANT OF TX, NO ADVERSE REACTION NOTED, WILL CONTINUE TO MONITOR.
[2021-02-13 15:50] VITALS: BP 93/68
--- NOTE | 2021-02-13 19:27 | NUR ---
Assumed pt care at 7am.Pt in bed most of the time today. Able to reposition self as needed. Assessment completed. vss.Pt has hemodialysis for over 4hours today. About 4liter of fluid removed. Meds given as ordered and well tolerated.Dr Vila and Pete here,order noted.Pt refused st cath for ua. Pt constantly asking for water to drink. Ice chips given due to restricted fluid intake per day. Report off to pool alvarez.
[2021-02-13 20:34] VITALS: BP 121/90
--- NOTE | 2021-02-14 05:23 | NUR ---
ASSUMED CARE AT 1900, PT SLEPT INTERMITTENTLY, NITS IDENTIFIED ON PT HAIR, NEW ORDER IN PLACE, PT REPORTS NO PAIN OR DISCOMFORT, IV ESTABLISHED ON THE LEFT FOREARM, PT TOLARATED PROCEDURE WELL, WILL CONTINUE TO MONITOR.
[2021-02-14 05:39] LABS: HEMATOCRIT 27.9 % (37.0-47.0); MCH 31.6 pg (26.0-34.0); MCHC 32.4 g/dL (28.0-37.0); MCV 97.7 fL (80.0-100.0); PLATELET COUNT 295 thou/uL (150-400); RBC 2.86 mil/uL (4.20-5.00); RDW 14.1 % (10.5-14.5); WBC 21.8 thou/uL (4.0-11.0)
[2021-02-14 05:52] LABS: CALCIUM 8.6 mg/dL (8.5-10.1); MAGNESIUM 1.9 mg/dL (1.8-2.4); POTASSIUM 3.9 mmol/L (3.5-5.1)
[2021-02-14 05:55] LABS: CREATININE 3.7 mg/dL (0.6-1.0)
[2021-02-14 08:49] VITALS: BP 117/86
[2021-02-14 08:57] LABS: METAMYELOCYTES 2 %; MYELOCYTES 1 %
--- NOTE | 2021-02-14 16:25 | NUR ---
RN ASSUMED PT'S CARE AT 0700AM, PT IS A&OX4, PT IS CONTINUING IV ABX AND WOUND CARE , PT'S VS ARE STABLE, PT DENIES N/V AT THIS TIME, PT NEEDS HELP TO CHANGE POSITION.
[2021-02-14 17:32] VITALS: BP 87/38
[2021-02-14 17:42] VITALS: BP 90/60
[2021-02-14 20:00] VITALS: BP 98/43
[2021-02-15] VITALS (17 sets, daily range): BP systolic 46–131; BP diastolic 28–59
--- NOTE | 2021-02-15 03:26 | NUR ---
ASSUMED CARE OF PT AT 1900. BEDSIDE REPORT RECIEVED. EUNICE ASSESSMENT COMPLETE. MEDS GIVEN ORDERED. PAIN MEDS GIVEN INDICATED. HD CATH CDI, SECURE, LFA PIV CDI PATENT AND SECURE. PT ANURIC. BILATERAL BKAS. IV ABTS BEING HUNG ORDERED. HOURLY ROUNDING CONTINUING. CALL LIGHT IN REACH.
[2021-02-15 05:28] LABS: ABSOLUTE NEUTROPHILS 21.2 thou/uL (1.4-8.2); BASOPHILS 0.4 % (0.0-2.0); EOSINOPHILS 2.3 % (0.0-3.0); HEMATOCRIT 26.9 % (37.0-47.0); HEMOGLOBIN 8.7 gm/dL (12.0-15.0); LYMPHOCYTES 2.7 % (24.0-44.0); MCH 31.4 pg (26.0-34.0); MCHC 32.3 g/dL (28.0-37.0); MCV 97.3 fL (80.0-100.0); MONOCYTES 4.1 % (1.0-8.0); PLATELET COUNT 309 thou/uL (150-400); POLYS 90.5 % (36.0-66.0); RBC 2.76 mil/uL (4.20-5.00); RDW 14.2 % (10.5-14.5); WBC 23.4 thou/uL (4.0-11.0)
[2021-02-15 05:42] LABS: CALCIUM 8.8 mg/dL (8.5-10.1); MAGNESIUM 1.9 mg/dL (1.8-2.4); POTASSIUM 3.9 mmol/L (3.5-5.1)
[2021-02-15 05:44] LABS: CREATININE 5.1 mg/dL (0.6-1.0)
--- NOTE | 2021-02-15 11:03 | HC ---
[facility] [place] [address] CONSULTATION Name: KALPANA BILLS Room #: 456-P ADM IN M.R.#: [id number] Admission: 02/09/21 Attend Phys: Ugo Freeman MD Discharge: Date of : 67 Report #: [id number] THIS REPORT FOR: cc: Kyle Driver MD, Samuel D. MD Althoff,Nikhil Salas MD ~ DATE OF SERVICE: 02/10/2021 CHIEF COMPLAINT: Sacral pressure ulceration. HISTORY OF PRESENT ILLNESS: This is a 55-year-old female patient with whom I am familiar from prior hospitalization, who presents with redness and swelling to her left posterior thigh as well as previously noted pressure ulcerations. She has had a dialysis catheter in her upper chest that has been malfunctioning as well. PAST MEDICAL HISTORY: Positive for history of type 2 diabetes mellitus, congestive heart failure, bilateral below knee amputations, chronic kidney disease, hypertension, congestive heart failure, peripheral vascular disease, obstructive sleep apnea, noncompliant with CPAP, lymphedema, depression, and hyperlipidemia. SOCIAL HISTORY: Positive for daily smoking 1 pack per day. Admits to occasional alcohol use as well as use of marijuana. MEDICATIONS: Include albuterol, Synthroid, pantoprazole, Lyrica, Lipitor, Combivent, Coreg, oxycodone, and aripiprazole. ALLERGIES: KEFLEX, SULFA, LATEX. FAMILY HISTORY: Noncontributory. REVIEW OF SYSTEMS: CONSTITUTIONAL: The patient denies fever, chills, or weight loss. NEUROLOGICAL: The patient denies focal weakness, numbness, or tingling. EYES: The patient denies visual changes, redness, or drainage. ENT: The patient denies earache, nasal drainage or sore throat. CARDIOVASCULAR: The patient denies chest pain, palpitations or diaphoresis. PULMONARY: Denies cough or shortness of breath. GASTROINTESTINAL: The patient denies nausea or abdominal pain.. ORTHOPEDIC: The patient complains of pain some in her left thigh as well as the truncal pressure ulcerations. Others systems in a 14-point review of systems are negative. PHYSICAL EXAMINATION: VITAL SIGNS: At this time include temperature 36.8, pulse 82, respiratory rate [address] [address] CONSULTATION Name: KALPANA BILLS Room #: 456-P [facility] IN M.R.#: [id number] Admission: 02/09/21 Attend Phys: Ugo Freeman MD Discharge: Date of : 67 Report #: [id number], blood pressure 99/68. GENERAL: This is a somewhat chronically ill-appearing female patient who appears to be in minimal distress. HEENT: Head is normocephalic. Nose and throat are clear. NECK: Supple. LUNGS: Diminished. HEART: Irregular. ABDOMEN: Soft, obese, nontender. EXTREMITIES: She has a stage 3 pressure ulceration to her coccyx and relatively shallow stage 3 ulcerations to both ischial tuberosities, neither of which are infected. There is some cellulitis to the left posterior thigh area with some induration. LABORATORY DATA: Include sodium 127, potassium 5.4, chloride 92, CO2 24, BUN 52, creatinine 8.3, glucose of 359. White blood cell count is 20,000 with a hemoglobin of 9.1. CLINICAL IMPRESSION: 1. Stage 3 pressure ulcerations to the coccyx and bilateral ischial tuberosities. 2. Type 2 diabetes mellitus. 3. Cellulitis to the left thigh. 4. History of bilateral below-knee amputations. 5. Super morbid obesity. 6. Moderate protein-calorie malnutrition with albumin of 2.6. RECOMMENDATIONS: The patient has been started on intravenous antibiotic therapy. She has had an ultrasound of the left thigh that did not demonstrate abscess or fluid collection. This will clearly need to be closely observed. We will recommend moisture barrier cream to the pressure ulcerations. She has refused the low air loss mattress. She also refuses turning and repositioning, stating that she will on her own reposition by rocking forward and back. She has also refused bariatric bed, which I think would be more appropriate given her size. Recommend aggressive nutritional support as much as possible. I appreciate being asked to see her in consultation. <ELECTRONICALLY SIGNED> By: Nikhil Pierce MD 02/15/21 1103 0929 1301 Nikhil Pierce MD /nt
--- NOTE | 2021-02-15 12:26 | NUR ---
CM FO[facility] THEY INDICATED THAT THEY DON'T GO TO [place]. CM CALLED [facility] AND THEY DON'T [facility] DUAL COMPLETE. CM CALLED [facility] AND FAXED REFERRAL FOR REVIEW. CM AWAITING RESPONSE. STILL WAITING ON CULTURES TO GET DC ABX RECS. CM FOLLOWING REGARDIGN DC PLANNING.
--- NOTE | 2021-02-15 18:00 | NUR ---
1800- Patient brought to ICU post code blue on 4 south. See code blue sheet. Dr. Paez here on unit. Orders received.
[2021-02-15 18:12] LABS: BE(vivo) -4.8 mmol/L (-2 to +3); HCO3 22.1 mmol/L (22.0-26.0); PCO2 49.4 mmHg (35.0-45.0); PO2 263.3 mmHg (80.0-100.0); sO2 99.5 % (92.0-98.0)
[2021-02-15 18:13] LABS: pH 7.268 (7.360-7.450)
[2021-02-15 18:35] LABS: HEMATOCRIT 29.3 % (37.0-47.0); HEMOGLOBIN 9.1 gm/dL (12.0-15.0); MCH 30.5 pg (26.0-34.0); MCV 98.6 fL (80.0-100.0); RBC 2.97 mil/uL (4.20-5.00); RDW 14.1 % (10.5-14.5); WBC 33.1 thou/uL (4.0-11.0)
[2021-02-15 18:46] LABS: ALBUMIN 3.1 g/dL (3.4-5.0); CALCIUM 8.4 mg/dL (8.5-10.1); CREATININE 4.2 mg/dL (0.6-1.0); POTASSIUM 4.2 mmol/L (3.5-5.1)
--- NOTE | 2021-02-15 18:47 | NUR ---
CENTRAL LINE PLACED BY IV ACCESS TEAM. PT UNABLE TO KEEP HEAD STILL. NECESSARY FOR RN TO STEADY HEAD WHILE CENTRAL LINE PLACED. PCXR PENDING.
[2021-02-15 18:48] LABS: INR 1.04; PROTIME 11.3 Seconds (10.5-12.1)
--- NOTE | 2021-02-15 18:50 | NUR ---
VAT CONSULTED FOR CVL PLACEMENT, POST CODE. TIMEOUT WITH MARCIAL ODEN AT 1820. PT WOKE ENOUGH TO START TRYING TO MOVE HER HEAD TO LEFT, ACTIVELY RESISTING THIS RN POSITIONING HER NECK, ROTATED RIGHT. MARCIAL ODEN TO BEDSIDE TO ASSIST, UNDER STERILE DRAPE, POSITIONING NECK SO THAT LEFT JUGULAR AREA ACCESSIBLE. 6FR TL JACCC CATHETER TO LEFT IJ, TRIMMED 25/6CM EXTERNAL. LOT NUMBER [id number]. AWAITING CXR TO VERIFY TIP LOCATION.
--- NOTE | 2021-02-15 19:18 | NUR ---
Assumed care fort Pt at shift changed, fount in room in a sitting up position in bed , A/O to S, P and T , c/o sleepless, look sleepy, cooperative and calm, no respiratory distress, VSS, with soft BP,( 98/75) map 75, Hr 100-105, afebrile. Labs reviewed, Gluc covered per ISS, all meds gived per order, Zosyn dose was held by nursing jugement due to HD at the same time, poor appetite, after HD started Pt vomited twice, first time w/o complication, 2 time in about 1 hr later, Pt was iresponsive, all necessary steps done on time the team, sucessful code intervention, Pt in ICU for necessary care. night,
[2021-02-15 21:54] LABS: D-DIMER 19.14 ug/mLFEU (0.19-0.50)
[2021-02-15 23:58] LABS: BE(vivo) -9.9 mmol/L (-2 to +3); HCO3 18.1 mmol/L (22.0-26.0); PCO2 50.4 mmHg (35.0-45.0); PO2 86.6 mmHg (80.0-100.0)
[2021-02-15 23:59] LABS: pH 7.174 (7.360-7.450)
[2021-02-16] VITALS (69 sets, daily range): BP systolic 80–170; BP diastolic 21–86
[2021-02-16 01:03] LABS: APTT 68.3 Seconds (24.5-32.8); INR 1.14; PROTIME 12.3 Seconds (10.5-12.1)
[2021-02-16 01:18] LABS: ABSOLUTE NEUTROPHILS 22.4 thou/uL (1.4-8.2); BASOPHILS 0.6 % (0.0-2.0); EOSINOPHILS 0.4 % (0.0-3.0); HEMATOCRIT 25.8 % (37.0-47.0); LYMPHOCYTES 3.4 % (24.0-44.0); MCH 31.1 pg (26.0-34.0); MCHC 31.1 g/dL (28.0-37.0); MCV 99.9 fL (80.0-100.0); MONOCYTES 4.7 % (1.0-8.0); POLYS 90.9 % (36.0-66.0); RBC 2.58 mil/uL (4.20-5.00); RDW 14.5 % (10.5-14.5); WBC 24.6 thou/uL (4.0-11.0)
[2021-02-16 01:22] LABS: PLATELET COUNT 274 thou/uL (150-400)
[2021-02-16 01:39] LABS: CALCIUM 7.6 mg/dL (8.5-10.1); CREATININE 4.5 mg/dL (0.6-1.0); MAGNESIUM 2.1 mg/dL (1.8-2.4); PHOSPHORUS 4.7 mg/dL (2.5-4.9); POTASSIUM 3.5 mmol/L (3.5-5.1)
--- NOTE | 2021-02-16 02:38 | NUR ---
This RN discussed with family at the bedside at 1930. Discussed events of the day, status and plan of care. All questions answered.
--- NOTE | 2021-02-16 02:40 | NUR ---
This RN spoke to Ken, at 2200 regarding patient status. All questions answered and updated.
[2021-02-16 04:17] LABS: BE(vivo) -12.5 mmol/L (-2 to +3); HCO3 15.7 mmol/L (22.0-26.0); PCO2 45.5 mmHg (35.0-45.0); PO2 99.5 mmHg (80.0-100.0); sO2 95.7 % (92.0-98.0)
[2021-02-16 04:18] LABS: pH 7.155 (7.360-7.450)
[2021-02-16 05:25] LABS: HEMOGLOBIN 6.8 gm/dL (12.0-15.0)
[2021-02-16 05:26] LABS: HEMATOCRIT 21.7 % (37.0-47.0); MCH 31.4 pg (26.0-34.0); MCHC 31.2 g/dL (28.0-37.0); MCV 100.6 fL (80.0-100.0); PLATELET COUNT 219 thou/uL (150-400); RBC 2.15 mil/uL (4.20-5.00); RDW 14.6 % (10.5-14.5); WBC 17.2 thou/uL (4.0-11.0)
[2021-02-16 05:33] LABS: BE(vivo) -9.9 mmol/L (-2 to +3); HCO3 18.1 mmol/L (22.0-26.0); PCO2 49.6 mmHg (35.0-45.0); PO2 92.5 mmHg (80.0-100.0)
[2021-02-16 05:43] LABS: CALCIUM 7.7 mg/dL (8.5-10.1); CREATININE 4.9 mg/dL (0.6-1.0); MAGNESIUM 2.2 mg/dL (1.8-2.4); POTASSIUM 3.1 mmol/L (3.5-5.1)
[2021-02-16 05:55] LABS: INR 1.09; PROTIME 11.8 Seconds (10.5-12.1)
[2021-02-16 05:56] LABS: APTT 100.8 Seconds (24.5-32.8)
[2021-02-16 06:09] LABS: ANISOCYTOSIS 1+; HYPOCHROMASIA 1+; METAMYELOCYTES 2 %; MICROCYTES 1+; MYELOCYTES 6 %; PROMYELOCYTES 2 %; TOXIC GRANULATION 2+
--- NOTE | 2021-02-16 06:15 | NUR ---
Spoke to pt at 0616. Updated on pt status and poc. Answered questions and clarified visiting hours.
--- NOTE | 2021-02-16 06:33 | NUR ---
PT NOT PROGRESSING TOWARDS GOALS. PT STARTED ON HEPARIN, LEVO, VASO, INSULIN, AND SEDATION GTTS THIS SHIFT. CVP AND OG PLACED. OG PUT OUT 850CC OF BILE. STARTED ON HYPOTHERMIA TREATMENT. MET [employer] TEMP AT 0115. [facility] CALLED DUE TO [employer] OF 3. INSTRUCTED TO UPDATE WITH CHANGE OF STATUS OR WITHDRAW OF CARE. WILL CONTINUE TO FOLLOW POC.
--- NOTE | 2021-02-16 06:44 | NUR ---
DR SEGURA APPROVED HYPOTHERMIA TX. DISCUSSED PT STATUS THIS AM. ORDERS GIVEN
--- NOTE | 2021-02-16 07:04 | NUR ---
[facility] CALLED THIS AM. REFERRAL NUMBER [id number]
--- NOTE | 2021-02-16 07:16 | EKG ---
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 : 1965 Requested By: Ugo Freeman Order Number: [id number] : iZ Schilling Measurements Intervals [place] Rate: 102 P: NC: QRS: 75 QRSD: 94 T: 238 QT: 321 QTc: 419 Interpretive Statements Atrial fibrillation Nonspecific repol abnormality, diffuse leads Compared to ECG 02/09/2021 16:40:23 Early repolarization now present Atrial flutter no longer present Ventricular premature complex(es) no longer present Electronically Signed On 02-16-2021 7:15:53 CDT by Zi Schilling [email or web address] <ELECTRONICALLY SIGNED> By: Zi Schilling MD, [facility] 02/16/21 0715 173 30 Zi Schilling MD, [facility] /EPI
[2021-02-16 08:42] LABS: BE(vivo) -8.4 mmol/L (-2 to +3); HCO3 19.4 mmol/L (22.0-26.0); PCO2 50.2 mmHg (35.0-45.0); PO2 74.1 mmHg (80.0-100.0); sO2 91.5 % (92.0-98.0)
[2021-02-16 08:44] LABS: pH 7.204 (7.360-7.450)
[2021-02-16 13:00] LABS: HEMATOCRIT 29.9 % (37.0-47.0); MCH 30.6 pg (26.0-34.0); MCHC 31.5 g/dL (28.0-37.0); MCV 96.9 fL (80.0-100.0); RBC 3.09 mil/uL (4.20-5.00); WBC 19.7 thou/uL (4.0-11.0)
[2021-02-16 13:06] LABS: HEMOGLOBIN 9.4 gm/dL (12.0-15.0); PLATELET COUNT 298 thou/uL (150-400)
[2021-02-16 13:37] LABS: INR 1.05; PROTIME 11.4 Seconds (10.5-12.1)
[2021-02-16 13:39] LABS: CALCIUM 7.9 mg/dL (8.5-10.1); CREATININE 5.1 mg/dL (0.6-1.0); MAGNESIUM 2.2 mg/dL (1.8-2.4); PHOSPHORUS 5.2 mg/dL (2.6-4.7); POTASSIUM 3.2 mmol/L (3.5-5.1)
[2021-02-16 13:40] LABS: APTT 51.9 Seconds (24.5-32.8)
--- NOTE | 2021-02-16 13:44 | NUR ---
ASSUMED CARE OF PT AT 0700. PT S/P CODE ON HYPOTHERMIA PROTOCOL. DR COTTON ROUNDED ON PT THIS AM AT 0945 IV FLUIDS D/C'd AT THAT TIME PER PROVIDER. DR SIERRA ROUNDED AT 1030 AND HAD A CONVERSATION WITH REGARDING PT'S CURRENT STATUS AND GOALS OF CARE. PT VERBALIZED UNDERSTANDING. ELIZABETH, [facility] GENERAL SERVICE OFFICER, ROUNDED ON PT AT 1230 AND WAS UPDATED AT THAT TIME. NEUROLOGY AND CARDIOLOGY CONSULTED DOCUMENTED. WILL CONTINUE TO MONITOR.
--- NOTE | 2021-02-16 14:35 | 2DMMODE ---
[facility] [place] [address] 2 D/M-MODE ECHOCARDIOGRAM Name: KALPANA BILLS Room #: 238-P ADM IN M.R.#: [id number] Admission: 02/09/21 Attend Phys: Ugo Freeman MD Discharge: Date of : 67 Report #: [id number] THIS REPORT FOR: cc: Kyle Driver MD, Samuel D. MD Lundgren,Malick Mcneil MD [facility] ~ APPROVED REPORT Study performed: 02/16/2021 12:20:37 EXAM: Comprehensive 2D, Doppler, and color-flow Echocardiogram Patient Location: ICU Room #: 238 Status: routine BSA: 2.51 HR: 68 bpm BP: 111/42 mmHg Rhythm: NSR Other Information Study Quality: Technically Limited Technically limited study due to body habitus. Indications Diabetes Chest Pain Hypertension/HDD Morbid obesity, S^P Code 2D Dimensions RVDd: 50.05 mm IVSd: 11.10 (7-11mm) LVOT Diam: 22.41 (18-24mm) LVDd: 49.28 mm PWd: 11.39 (7-11mm) Ascending Ao: 30.88 (22-36mm) LVDs: 33.19 (25-40mm) Left Atrium: 36.07 (27-40mm) Aortic Root: 31.49 mm IVC: 32.00 mm Aortic Valve AoV Peak Imer.: 1.22 m/s AO Peak Gr.: 5.97 mmHg Pulmonary Valve [facility] [address] [place] [address] 2 D/M-MODE ECHOCARDIOGRAM Name: KALPANA BILLS Room #: 238-P ADM IN .R.#: [id number] Admission: 02/09/21 Attend Phys: Ugo Freeman MD Discharge: Date of : 67 Report #: [id number] Peak Imer.: 0.82 m/s PV Peak Gr.: 2.70 mmHg Tricuspid Valve TR Peak Imer.: 2.78 m/s TR Peak Gr.: 30.91 mmHg PA Pressure: 46.00 mmHg Left Ventricle The left ventricle is normal size. There is normal left ventricular wall thickness. The left ventricular systolic function is normal. The left ventricular ejection fraction is within the normal range. LVEF is 55-60%. Mild diastolic dysfunction Right Ventricle Right ventricle is dilated. Right ventricular systolic function is grossly normal. Atria The left atrium size is normal. Right atrium is dilated. Aortic Valve The aortic valve is normal in structure. No aortic regurgitation is present. There is no aortic valvular stenosis. Mitral Valve The mitral valve is normal in structure. Trace mitral regurgitation. No evidence of mitral valve stenosis. Tricuspid Valve The tricuspid valve is normal in structure. There is mild to moderate tricuspid regurgitation. Estimated PAP 46mmHg. There is moderate pulmonary hypertension. Pulmonic Valve The pulmonary valve is normal in structure. There is no pulmonic valvular regurgitation. Great Vessels The aortic root is normal in size. The inferior vena cava is dilated with no inspiratory collapse. Pericardium There is no pericardial effusion. <Conclusion> The left ventricular systolic function is normal. [facility] [address] [place] [address] 2 D/M-MODE ECHOCARDIOGRAM Name: KALPANA BILLS Room #: 238-P [facility] IN .R.#: [id number] Admission: 02/09/21 Attend Phys: Ugo Freeman MD Discharge: Date of : 67 Report #: [id number] LVEF is 55-60%. Mild diastolic dysfunction Right atrium and ventricle are dilated. The aortic valve is normal in structure. No aortic regurgitation or stenosis. The mitral valve is normal in structure. Trace mitral regurgitation. There is mild to moderate tricuspid regurgitation. Estimated pulmonary artery pressure of 46mmHg. There is no pericardial effusion. <ELECTRONICALLY SIGNED> By: Malick Kline MD, FACC 02/16/21 1434 143 33 Malick Kline MD, FACC /INF
[2021-02-16 15:03] LABS: ABSOLUTE NEUTROPHILS 16.5 thou/uL (1.4-8.2); METAMYELOCYTES 1 %; MYELOCYTES 2 %; NUCLEATED RBCS 1 /100WBC
[2021-02-16 16:01] LABS: BE(vivo) -4.8 mmol/L (-2 to +3); HCO3 21.9 mmol/L (22.0-26.0); PCO2 47.2 mmHg (35.0-45.0); PO2 75.5 mmHg (80.0-100.0); sO2 93.5 % (92.0-98.0)
[2021-02-16 16:03] LABS: pH 7.284 (7.360-7.450)
[2021-02-16 18:46] LABS: HEMATOCRIT 32.6 % (37.0-47.0); HEMOGLOBIN 10.2 gm/dL (12.0-15.0); MCH 29.8 pg (26.0-34.0); MCHC 31.1 g/dL (28.0-37.0); MCV 95.8 fL (80.0-100.0); PLATELET COUNT 304 thou/uL (150-400); RDW 14.7 % (10.5-14.5); WBC 18.8 thou/uL (4.0-11.0)
[2021-02-16 18:49] LABS: APTT 49.5 Seconds (24.5-32.8); INR 1.03; PROTIME 11.2 Seconds (10.5-12.1)
[2021-02-16 18:59] LABS: CALCIUM 7.8 mg/dL (8.5-10.1); CREATININE 4.9 mg/dL (0.6-1.0); MAGNESIUM 2.3 mg/dL (1.8-2.4); PHOSPHORUS 5.2 mg/dL (2.5-4.9); POTASSIUM 3.6 mmol/L (3.5-5.1)
[2021-02-16 20:32] LABS: ABSOLUTE NEUTROPHILS 16.5 thou/uL (1.4-8.2)
--- NOTE | 2021-02-16 21:37 | NUR ---
ASSUMED CARE OF PT AT 1900. SPOKE TO PT AT 2014. UPDATED ON PT STATUS AND POC.
[2021-02-17] VITALS (61 sets, daily range): BP systolic 83–155; BP diastolic 20–92
--- NOTE | 2021-02-17 04:09 | NUR ---
REWARMING STARTED PER PROTOCOL. PT WOKE UP AND WAS ABLE TO FOLLOW COMMANDS.
[2021-02-17 05:45] LABS: HEMATOCRIT 25.4 % (37.0-47.0); MCH 31.1 pg (26.0-34.0); MCV 97.4 fL (80.0-100.0); RBC 2.61 mil/uL (4.20-5.00); RDW 15.5 % (10.5-14.5); WBC 21.1 thou/uL (4.0-11.0)
[2021-02-17 05:46] LABS: HEMOGLOBIN 8.1 gm/dL (12.0-15.0)
--- NOTE | 2021-02-17 06:23 | NUR ---
SPOKE TO PT MARGOT AT 0620. UPDATED ON PT STATUS AND ANSWERED QUESTIONS
--- NOTE | 2021-02-17 07:13 | EKG ---
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 : 1965 Requested By: Ira Parker Order Number: [id number] : Zi Schilling Measurements Intervals Alex Rate: 93 P: [place]: QRS: 54 QRSD: 100 T: -37 QT: 391 QTc: 487 Interpretive Statements Atrial fibrillation Nonspecific T abnormalities, inferior leads Borderline prolonged QT interval Baseline wander in lead(s) V4 Compared to ECG 02/15/2021 17:31:04 T-wave abnormality now present Early repolarization no longer present Electronically Signed On 02-17-2021 7:13:03 CDT by Zi Schilling [email or web address] <ELECTRONICALLY SIGNED> By: Zi Schilling MD, FACC 02/17/21 0713 1518 1518 Zi Schilling MD, FAC /EPI
[2021-02-17 09:14] LABS: CALCIUM 6.2 mg/dL (8.5-10.1); POTASSIUM 3.7 mmol/L (3.5-5.1)
[2021-02-17 09:16] LABS: CREATININE 3.9 mg/dL (0.6-1.0)
[2021-02-17 10:50] LABS: BE(vivo) -3.8 mmol/L (-2 to +3); HCO3 22.3 mmol/L (22.0-26.0); PCO2 44.4 mmHg (35.0-45.0); PO2 92.9 mmHg (80.0-100.0); sO2 96.5 % (92.0-98.0)
[2021-02-17 10:52] LABS: pH 7.319 (7.360-7.450)
--- NOTE | 2021-02-17 15:04 | NUR ---
VARIANCE NOTE: PT W/ MEDICAL COMPLICATIONS FROM TIME OF O.T. ORDERED. CURRENTLY ON VENTILATOR/SEDATED, W/ HYPOTHERMIA TREATMENTS ONGOING. PT NOT APPROPRIATE FOR O.T. EVAL AT THIS TIME. PLEASE RE-CONSULT O.T. PT BECOMES MEDICALLY STABLE TO PARTICIPATE. THANK YOU.
[2021-02-17 16:09] LABS: CALCIUM 8.1 mg/dL (8.5-10.1); CREATININE 3.2 mg/dL (0.6-1.0); MAGNESIUM 2.1 mg/dL (1.8-2.4); POTASSIUM 4.1 mmol/L (3.5-5.1)
[2021-02-18] VITALS (37 sets, daily range): BP systolic 74–142; BP diastolic 19–73
[2021-02-18 04:48] LABS: ALBUMIN 2.1 g/dL (3.4-5.0); CALCIUM 7.9 mg/dL (8.5-10.1); PHOSPHORUS 5.6 mg/dL (2.5-4.9); POTASSIUM 4.4 mmol/L (3.5-5.1)
[2021-02-18 05:24] LABS: HEMATOCRIT 31.3 % (37.0-47.0); HEMOGLOBIN 9.9 gm/dL (12.0-15.0); MCH 30.7 pg (26.0-34.0); MCHC 31.7 g/dL (28.0-37.0); RBC 3.22 mil/uL (4.20-5.00); RDW 15.4 % (10.5-14.5); WBC 33.9 thou/uL (4.0-11.0)
--- NOTE | 2021-02-18 07:03 | EKG ---
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
--- NOTE | 2021-02-18 10:25 | NUR ---
PT OUND VENT IO2 40% MOUTHCARE DONE, SUCTIONED, ICU ASSESSMENT DONE. PT ON INSULIN, HEPARIN, LEVOPHED, FENTANLY, AND VERSED. PT IN WARMING STAGE OF HYPOHERMIA PROTOCOL. PT ON CLRT. ANURIC.
--- NOTE | 2021-02-18 14:11 | NUR ---
Chart review. Discussed during los and unit rounds. Getting dialysis today. Cont on vent 40%, peep 5. nutritional support. Cm visited wit her spouse kathleen, he would like to talk heather LONGORIA, has question on how long its going to be before he can talk wit his per kathleen. CM passed on information to hospitalist to call kathleen # [phone]. No anticipated dc over the weekend, will cont following as needed for dc needs.
[2021-02-19] VITALS (7 sets, daily range): BP systolic 106–143; BP diastolic 51–60
[2021-02-19 04:26] LABS: CALCIUM 7.9 mg/dL (8.5-10.1); CREATININE 3.2 mg/dL (0.6-1.0); POTASSIUM 4.5 mmol/L (3.5-5.1)
--- NOTE | 2021-02-19 07:43 | NUR ---
ASSUMED CARE OF PT AT 729, PT CALLED AT 730 ASKING FOR AN UPDATE, I UPDATED HIM PER POC AND HE STATED HE WOULD BE IN SHORTLY TO SIT WITH THE PT
[2021-02-19 15:14] LABS: BE(vivo) 4.1 mmol/L (-2 to +3); HCO3 28.7 mmol/L (22.0-26.0); PCO2 43.6 mmHg (35.0-45.0); pH 7.437 (7.360-7.450); sO2 91.7 % (92.0-98.0)
[2021-02-20] VITALS (9 sets, daily range): BP systolic 125–181; BP diastolic 44–82
[2021-02-20 06:34] LABS: CALCIUM 8.3 mg/dL (8.5-10.1); CREATININE 3.1 mg/dL (0.6-1.0); POTASSIUM 4.4 mmol/L (3.5-5.1)
[2021-02-20 10:20] LABS: BE(vivo) 5.2 mmol/L (-2 to +3); HCO3 30.1 mmol/L (22.0-26.0); PCO2 45.6 mmHg (35.0-45.0); PO2 60.6 mmHg (80.0-100.0); pH 7.437 (7.360-7.450); sO2 91.9 % (92.0-98.0)
--- NOTE | 2021-02-20 20:45 | NUR ---
1030- IN.--VW 1230-PT OFF FENTNAYL,VERSED DWN TO 3MG/HR,CPAP X ~1 1/2 HRS,DID WELL.--VW 1430- IN.--VW 1830-PT NOT AWAKE ENOUGH TO EXTUBATE.OFF PRESSORS & SEDATION/NARC GTT.SLOWLY PROGRESSING TOWARD GOALS.--VW
[2021-02-21] VITALS (31 sets, daily range): BP systolic 108–187; BP diastolic 35–87
[2021-02-21 05:42] LABS: HEMATOCRIT 33.1 % (37.0-47.0); HEMOGLOBIN 10.5 gm/dL (12.0-15.0); MCH 30.8 pg (26.0-34.0); MCHC 31.9 g/dL (28.0-37.0); MCV 96.5 fL (80.0-100.0); RBC 3.43 mil/uL (4.20-5.00); RDW 15.1 % (10.5-14.5); WBC 15.7 thou/uL (4.0-11.0)
[2021-02-21 05:57] LABS: CALCIUM 8.2 mg/dL (8.5-10.1); POTASSIUM 4.9 mmol/L (3.5-5.1)
[2021-02-21 05:58] LABS: CREATININE 4.1 mg/dL (0.6-1.0)
[2021-02-21 07:45] LABS: HCO3 26.3 mmol/L (22.0-26.0); PCO2 40.1 mmHg (35.0-45.0); PO2 62.9 mmHg (80.0-100.0); pH 7.435 (7.360-7.450); sO2 92.8 % (92.0-98.0)
--- NOTE | 2021-02-21 19:27 | NUR ---
PTT SENT AND PTT IS THERAPUTIC AT 53 HEPARIN DRIP REMAINS AT 8 UNIT/ MIN. PRECEDEX DECREASE TO 1MG FOR PT TO WAKE UP .
[2021-02-22] VITALS (27 sets, daily range): BP systolic 100–169; BP diastolic 35–89
[2021-02-22 05:12] LABS: ALBUMIN 2.2 g/dL (3.4-5.0); CALCIUM 7.9 mg/dL (8.5-10.1); DIRECT BILIRUBIN 0.2 mg/dL (<0.1-0.2); TOTAL BILIRUBIN 0.4 mg/dL (0.2-1.0)
[2021-02-22 05:13] LABS: CREATININE 5.1 mg/dL (0.6-1.0)
[2021-02-22 05:20] LABS: HEMATOCRIT 34.5 % (37.0-47.0); HEMOGLOBIN 10.8 gm/dL (12.0-15.0); MCH 30.1 pg (26.0-34.0); MCHC 31.2 g/dL (28.0-37.0); MCV 96.4 fL (80.0-100.0); RBC 3.58 mil/uL (4.20-5.00); RDW 15.1 % (10.5-14.5); WBC 13.9 thou/uL (4.0-11.0)
--- NOTE | 2021-02-22 06:00 | NUR ---
REMAINS INTUBATED AND SEDATED WITH PRECEDEX AT 1 MCG VSS SINUS RHYTHM APTT 53.7 THIS AM. HEPARIN GTT AT 8 UNITS. WILL HAVE DIALYSIS THIS AM PROGRESSING TOWARD GOALS
--- NOTE | 2021-02-22 09:57 | NUR ---
If unable to extubate, recommend start enteral feeding of nepro at 20ml/hr with goal of 30ml/hr. Pt has had prolonged npo status since 02/15
--- NOTE | 2021-02-22 15:36 | NUR ---
PT IS STILL INTUBATED FIO2 30% AND PEEP OF 5. PT WAS GETTING DIALYSIS THIS MORNING. CARE TEAM INDICATED THAT PT IS MORE ALERT RESPONDING TO SOME COMMANDS. CM FOLLOWING REGARDING DC PLANNING.
[2021-02-22 16:18] LABS: BE(vivo) 4.4 mmol/L (-2 to +3); HCO3 28.5 mmol/L (22.0-26.0); PCO2 40.5 mmHg (35.0-45.0); pH 7.465 (7.360-7.450); sO2 94.7 % (92.0-98.0)
--- NOTE | 2021-02-22 18:59 | NUR ---
HEPARIN DRIP IS TURNED OFF AT [address] BLACKWELL, 150MG OF LOVENOX SQ BID IS ORDERED.
[2021-02-23] VITALS (23 sets, daily range): BP systolic 139–182; BP diastolic 50–96
--- NOTE | 2021-02-23 14:35 | NUR ---
PT CAME BACK FROM CT OF CHEST, ABDOMEN AND PELVIS AROUND 1045 AM TO ICU. PT WAS PUT BACK ON CPAP TRIAL AFTER CT. DR BLACKWELL WAS CALLED AT 1408 AND PAGED TO KNOW IF HE WANTED PATIENT TO HAVE ABG AFTER CPAP TRIAL. NO REPLY FROM DR BLACKWELL. MEANWHILE PACING BACK AND FORTH IN THE ROOM CUSSING AT DR. BLACKWELL FOR NOT EXTUBATING HIS AND BLAMING THE STAFF FOR KEEPING PATIENT INTUBATED FOR NO REASON. THIS RN TRIED TO TALK TO THE AND MAKE HIM UNDERSTAND THE SITUATION. STILL AGITATED AND PACING IN THE ROOM. FUR SORTER WAS INFORMED OF PATIENT BEHAVIOR. ICU CHARGE WAS INFORMED ABOUT THE SITUATION. SECURITY WAS NOTIFIED. FUR SORTER TALKED TO DR MORENO AND RECEIVED ORDER FOR NO VISITATION FOR FOR TODAY. DR SIERRA WAS PAGED TO INFORM THIS SITUATION AT 1440. STILL HAVENT RECEIVED CALL OR TEXT FROM DR. BLACKWELL AT 1442.
--- NOTE | 2021-02-23 16:22 | NUR ---
CARE TEAM INDICATED THAT PT IS TO HAVE CPAP TRIAL TODAY WITH HOPES TO EXTUBAT. PT IS FOLLOWING COMMANDS. PT REMAINS ON PRECEDEX. PT HAD CT THIS DAY. CM FOLLOWING REGARDING DC PLANNING.
[2021-02-24] VITALS (70 sets, daily range): BP systolic 86–162; BP diastolic 43–117
--- NOTE | 2021-02-24 07:33 | NUR ---
ASSUME CARE 1999. PT/VITALS STABLE. NO PAIN INDICATED. PT IS A/O X 4. VERY POOR TOLERANCE TO ACTIVITY. ASSESSMENT CHARTED. MODERATE PROGRESS TOWARDS POC. PT IS FRUSTRATED ABOUT BEING IN RESTRAINTS AND WANTS TUBE OUT. REDIRECTED TO WHY SHE IS ON RESTRAINTS AND WHY SHE STILL NEEDS TO BE INTUBATED. PLAN IS TO CONTINUE ABX THERAPY/CPAP TRIALS AND EVENTUALLY EXTUBAE PT. DIALYSIS MWF. NO DISTRESS NOTED/ AFIB ON MONITOR WITH RATE CONTROLLED. WILL CONTINUE TO MONITOR AND FOLLOW WITH POC
--- NOTE | 2021-02-24 10:09 | HC ---
[facility] [place] [address] CONSULTATION Name: KALPANA BILLS Room #: 238-P ADM IN M.R.#: [id number] Admission: 02/09/21 Attend Phys: Ugo Freeman MD Discharge: Date of : 67 Report #: [id number] THIS REPORT FOR: cc: Kyle Driver MD, Samuel D. MD Khosla, Parveen K. MD ~ DATE OF SERVICE: 02/17/2021 HISTORY OF PRESENT ILLNESS: This is a 55-year-old female patient who was evaluated by me for hypoxic encephalopathy. I talked to the patient's , I talked to the patient's nurse. I reviewed the notes. It would appear that the patient did have some cardiac arrest. the best I can tell, but the patient presently is on hypothermia protocol, although she is being warmed up. She is on some Versed, she got some lorazepam and she has some fentanyl according to the nurses and still she is able to follow simple commands some time. REVIEW OF SYSTEMS: Indicate that this patient has numerous medical problems. She had cellulitis for which she came to Emergency Room. She is being followed by surgery. She is being followed by Dr. Cota for cellulitis. Presently, she is intubated. She was hypertensive and had been on multiple vasopressors. It looks like she has chronic kidney disease. She is morbidly obese. She had bilateral amputation. She has a history of peripheral vascular disease. She has a history of hypothyroidism, iron deficiency anemia, depression. This is the relevant 14-point review of system, which I can get in this patient. PAST MEDICAL HISTORY: Huge and is positive for being on dialysis also. FAMILY HISTORY: Noncontributory. SOCIAL HISTORY: From the records and it indicates she smokes marijuana and drinks regularly. PHYSICAL EXAMINATION: GENERAL: The patient's examination was limited. Her eyes were closed, but when I asked her to squeeze my fingers she did it and she did it on both sides. I cannot tell whether it is symmetrical or not. I tried to do the cranial nerve examinations, I could not do it. Similarly higher functions, I could not do. There does not appear to be any meningeal sign. She is morbidly obese. VITAL SIGNS: Her blood pressure is 115 74, respirations 14, pulse is 132. LABORATORY DATA: White count is 21.1. GFR is only 12. She did have a CT scan of the head, which does not show any acute abnormality. IMPRESSION AND PLAN: This patient has numerous medical problems, but she is responsive at the moment. I will suggest try to taper off the sedation and see if she can be weaned off the vent. She was somewhat hypothyroid at one time and [facility] [address] [place] [address] CONSULTATION Name: KALPANA BILLS Kristen Room #: 238-P ADM IN M.R.#: [id number] Admission: 02/09/21 Attend Phys: Ugo Freeman MD Discharge: Date of : 67 Report #: [id number] I will repeat the TSH. I ordered that. Otherwise, I do not think neurologically we need to do anything different at the moment and I will suggest continuing supportive care and see if the sedation and ventilator can be weaned off and if she wakes up, no further testing may be necessary, but if she does not wake up, then we can proceed with other testing like MRI. Thank you very much for this referral and if you have any questions, please feel free to contact me. We will follow this patient peripherally <ELECTRONICALLY SIGNED> By: Jamie Woodward MD 02/24/21 1009 1116 Jamie Woodward MD /nt
--- NOTE | 2021-02-24 16:41 | NUR ---
PT CONTINUES ON VENT. PT IS IN RESTRAINTS. PT GOT DIALYSIS THIS DAY. CARE TEAM INDICATED THAT PT IS TO HAVE A BRONCHOSCOPY TODAY. PLAN FOR I&D TOMORROW. CM FOLLOWING REGARDING DC PLANNING.
--- NOTE | 2021-02-24 17:24 | NUR ---
Bronchoscopy completed with Dr. Noe and RT. 125MCG of fentanyl and 6mg of versed given per MD order. Antivan ordered but not given. Patient with stable VS pre, during, and post procedure.
--- NOTE | 2021-02-24 19:20 | NUR ---
Patient did well today, HD today removed 2L, patient tolerated well. Patient on precedex 1.4, bronch done at bedside by Dr. Noe
[2021-02-24 19:42] LABS: BF NUCLEATED CELLS 1402 /mm3; BF RBC 2744 /mm3
[2021-02-24 20:56] LABS: CLARITY TURBID; TOTAL VOLUME 14 mL
[2021-02-24 20:58] LABS: BF MACROPHAGE 0 %; BF NEUTROPHILS 54 %; SOURCE RESP/BRONCHIAL WASH
[2021-02-25] VITALS (49 sets, daily range): BP systolic 67–164; BP diastolic 38–135
[2021-02-25 04:48] LABS: BE(vivo) -6.3 mmol/L (-2 to +3); HCO3 17.9 mmol/L (22.0-26.0); PO2 65.3 mmHg (80.0-100.0); pH 7.379 (7.360-7.450); sO2 92.8 % (92.0-98.0)
[2021-02-25 05:46] LABS: HEMATOCRIT 31.7 % (37.0-47.0); HEMOGLOBIN 10.2 gm/dL (12.0-15.0); MCH 31.2 pg (26.0-34.0); MCHC 32.1 g/dL (28.0-37.0); MCV 97.2 fL (80.0-100.0); PLATELET COUNT 169 thou/uL (150-400); RBC 3.26 mil/uL (4.20-5.00); WBC 9.9 thou/uL (4.0-11.0)
--- NOTE | 2021-02-25 06:00 | NUR ---
REMAINS INTUBATED AND SEDATED WITH PRECEDES GTT AWAKE BECOMES AGITATED AT TIMES. ANURIC S/C FOR WOUND DEBREIDMENT TODAY. PROGRESSING TOWARD GOALS
[2021-02-25 06:25] LABS: ALBUMIN 2.4 g/dL (3.4-5.0); CALCIUM 7.6 mg/dL (8.5-10.1); CREATININE 3.4 mg/dL (0.6-1.0); POTASSIUM 4.8 mmol/L (3.5-5.1); TOTAL BILIRUBIN 0.6 mg/dL (0.2-1.0); TOTAL PROTEIN 5.3 g/dL (6.4-8.2)
[2021-02-25 08:36] LABS: ABSOLUTE NEUTROPHILS 8.9 thou/uL (1.4-8.2); ATYPICAL LYMPHS 3 %
--- NOTE | 2021-02-25 10:17 | NUR ---
No CPAP trail as of right now due to possible surgery, per Dr. Noe/.
--- NOTE | 2021-02-25 11:26 | NUR ---
Son Andrei Hathaway called, provided code and was upset that surgery has not been done yet and that patient is still intubated. Son concerned about nutrition. Requesting doctors to call him or his step father kathleen today. Paged Dr. Freeman to inform him of the situation.
--- NOTE | 2021-02-25 11:33 | NUR ---
Spoke with Dr. Noe and Dr. Freeman regarding son calling upset. Both physicians have spoken with patients Ken Cabrera throughout the past few days. As of right now information will only be communicated through the , despite code being provided.
--- NOTE | 2021-02-25 12:38 | NUR ---
[place] [address]/25
--- NOTE | 2021-02-25 14:41 | NUR ---
Attempted to call to obtain consent for procedure, no answer, message left.
--- NOTE | 2021-02-25 16:03 | NUR ---
CARE TEAM INDICATED THAT PT CONTINUES ON THE VENT. PT TO HAVE I&D THIS DAY. CPAP TRIALS MAY BE INITIATED SHORTLY. CM FOLLOWING.
--- NOTE | 2021-02-25 19:42 | NUR ---
ASSUMED CARE OF PT AT 1900. PT COMMUNICATED THAT SHE WOULD LIKE FOR ME TO CALL . I TALKED TO AT 1942 AND UPDATED HIM ON PT STATUS AND THAT SHE WOULD LIKE FOR HIM TO BE HERE TOMORROW. WILL FOLLOW POC.
[2021-02-26] VITALS (26 sets, daily range): BP systolic 67–163; BP diastolic 44–83
--- NOTE | 2021-02-26 09:31 | NUR ---
Nutrition: No nutrition ~2 weeks. Provider aware. Pt now wanting to leave AMA, planned I&D at noon. Tube feeding recs are Nepro to reach 30 mL/hr if pt not extubated and does not leave AMA. Severe malnutrition present.
--- NOTE | 2021-02-26 09:43 | NUR ---
09 PT WROTE ON PIECE OF PAPER THAT SHE WANTED TO LEAVE AMA RIGHT THEN. RN NOTIFIED DR BLACKWELL.
--- NOTE | 2021-02-26 12:25 | NUR ---
RN CONTACTED DR BLACKWELL ABOUT PATIENT WANTING TO LEAVE AMA AND NOT WANTING TO GO TO SURGERY. DR BLACKWELL STATED THAT SHE IS ON MEDICATIONS THAT MAKE HER CONFUSED. PT ABLE TO ANSWER ORIENTATION QUESTIONS 3/4. ANGI VALLE CALLED AND STATED THAT SHE IS GETTING THE SURGERY DONE. PT STILL IN RESTRAINTS.
[2021-02-26 13:12] LABS: CALCIUM 7.5 mg/dL (8.5-10.1); CREATININE 2.5 mg/dL (0.6-1.0)
--- NOTE | 2021-02-26 16:16 | NUR ---
PT LEFT FOR I&D PROCEDURE OF L INNER THIGH AT 1320. PT LEFT BY BED WITH OR STAFF. RN RECEIVED CALL FROM OR ABOVE PROCEDURE AT 1358. PT ARRIVED TO AT 1410. PT WAS DROSWY FROM SEDATION OF PROCEDURE. PT STILL ABLE TO WAKE UP AND NOD HEAD. PT NOT HAVING ANY PAIN. PT WAS STARTED ON CPAP TRIAL AT 1530. DR BLACKWELL NOTIFIED, HE SAID TO EXTUBATE PT. RT IN ROOM CURRENTLY ABOUT TO EXTUBATE PT AND PLACE PT ON FACE SHEILD OXYGEN. PT SLOWLY PROGRESSING TOWARDS CARE.
--- NOTE | 2021-02-26 16:18 | NUR ---
Reviewed discussed with nurse. It was reported that pt had indicated to night nurse that she is very frustrated although still intubated threatening to leave AMA. Pt had debridement this day. She has been afebrile otherwise hemodynamically stable. She is not receiving nutrition. She is on the vent FiO2 30% PEEP of 5. Bronchoscopy done yeaterday. Pt continues on iv vanc, micafungin, and meropenem. Cm following regarding pt's progress.
[2021-02-27] VITALS (28 sets, daily range): BP systolic 93–169; BP diastolic 35–111
--- NOTE | 2021-02-27 06:40 | NUR ---
PT IS PROGRESSING TOWARDS PLAN OF CARE EVIDENCED BY MINIMAL NEED OF 02 SUPPORT OR BP GTTS. PT GIVEN 50MG OF FENTANYL (PRN) FOR PAIN.
--- NOTE | 2021-02-27 18:40 | NUR ---
ASSESSMENT CHARTED. PT TOLERATED FULL LIQUID WELL. OFF PRECEDEX. NO RESPIRATORY DISTRESS NOTED. PT PROGRESSING WELL TOWARDS DISCHARGE GOAL. NO CONCERNS AT THIS TIME.
[2021-02-28 00:15] VITALS: BP 133/66
--- NOTE | 2021-02-28 02:54 | NUR ---
PT TRANSFER TO UNIT FROM ICU IN STABLE CONDITION.PT IS A/O X4/.PT IS ON BEDREST AND BLE BKA.IV ACCESS LT IJ TRIPPLE LUMEN AND RT CHEST TESSIO .PT IS ON SPECIAL BED.WOUND DRESSING MID LEFT THIGH C/D/I.PT IS INCONTINENT AND ANURIC AND IS MAX ASSIST.PT ON 2L OF O2 VIA NC.WILL CONTINUE TO MONITOR PER POC
--- NOTE | 2021-02-28 03:06 | NUR ---
PT PROGRESSING TOWARDS D/C GOALS. VSS AFEBRILE. SATS WNL ON 2LNC. PT TRANSFERRED TO [facility] IN STABLE CONDITION WITH All her belongings. NO C/O PAIN. NO S/S DISTRESS. WOUNF TO LEFT INNER THIGH REINFORCED DUE TO MODERATE AMTS SANGINOUS DRAINAGE NOTED AND LG AMT BROWN SOFT STOOL GOT ALL OVER DRESSING AFTER SHE HAD A LG BM.
[2021-02-28 05:00] VITALS: BP 89/40
[2021-02-28 07:28] VITALS: BP 128/46
[2021-02-28 08:47] LABS: HEMATOCRIT 25.7 % (37.0-47.0); HEMOGLOBIN 8.4 gm/dL (12.0-15.0); MCH 31.2 pg (26.0-34.0); MCHC 32.6 g/dL (28.0-37.0); MCV 95.7 fL (80.0-100.0); PLATELET COUNT 174 thou/uL (150-400); RBC 2.68 mil/uL (4.20-5.00); WBC 15.1 thou/uL (4.0-11.0)
[2021-02-28 10:11] LABS: ABSOLUTE NEUTROPHILS 13.1 thou/uL (1.4-8.2); ANISOCYTOSIS 1+; METAMYELOCYTES 2 %
[2021-02-28 11:16] VITALS: BP 96/45
[2021-02-28 16:17] VITALS: BP 132/53
[2021-02-28 19:02] VITALS: BP 131/67
--- NOTE | 2021-03-01 01:03 | NUR ---
PT ALERT AND ORIENTED WITH PERIODS OF MILD CONFUSION AND ANXIETY. PT YELLS OUT TO BE REPOSITIONED FREQUENTLY INSTEAD OF USING CALL LIGHT. 4 PEOPLE NEEDED FOR ASSISTANCE TURNING HER IN BED. SACRAL AND ISCHIAL AREA REDDEENED. ZGARD APPLIED. LEFT THIGH DRESSING CHANGED DUE TO MOD AMTS STOOL WAS ON DRESSING. ORAL CARE DONE. ATIVAN GIVEN FOR ANXIETY. PT SLEEPING PRESENTLY. NO S/S DISTRESS.
[2021-03-01 03:18] VITALS: BP 131/64
--- NOTE | 2021-03-01 06:15 | NUR ---
PT RESTING QUIETLY WATCHING TV. DIALYSIS TO BE IN THE AFTERNOON
[2021-03-01 07:29] VITALS: BP 134/55
--- NOTE | 2021-03-01 11:07 | NUR ---
PT A&OX4 THIS SHIFT, PT IS ANXIOUS TO GO HOME. STATES SHE WANTS "TO HURRY UP AND GET DIALYSIS AND THEN GO HOME" THIS RN EXPLAINED DIALYSIS IS SCHEDULED FOR THIS AFTERNOON. PT VERBALIZED UNDERSTANDING.
[2021-03-01 11:17] VITALS: BP 151/73
--- NOTE | 2021-03-01 15:12 | NUR ---
SW reviewed chart and spoke with nursing and attending physician. Pt transferred to from ICU over the weekend and is progressing towards goals for discharge. SW met with pt at bedside to discuss discharge plan. Pt receiving dialysis during time of SW visit. Pt states she was told that she was discharging home today. SW explained that PT/OT evals have been ordered and will need to be completed prior to discharge to ensure appropriate level of care at time of discharge. Pt will have dialysis until 1630 today. Pt is currently on 4L of O2. Pt was not on O2 prior to admission. Pt states she might be agreeable with post-acute placement if recommended by therapy. Pt asking to speak with attending physician. SW notified physician, who will follow up with pt at a later time. Pt goes to [facility] for outpatient dialysis. [facility] has accepted pt on service. [facility] updated liaison. [facility] is following to assist as needed with discharge planning.
[2021-03-01 17:18] VITALS: BP 144/78
[2021-03-01] MEDS ORDERED: HUMALOG100 UNIT/1 SUBQ (17:25)
[2021-03-01] MEDS ORDERED: PREDNISONE 10 M10 M1 PO (17:25)
--- NOTE | 2021-03-01 18:03 | NUR ---
pt received discharge orders to home. Pt instructions reviewed with pt and pt verbalized understanding and signed instructions. Pt wheeled self to enterence in own wheel chair with personal belongings and left hospital without incident in private vehicle.
[2021-03-02 08:06] VITALS: BP 144/78
--- NOTE | 2021-03-02 08:25 | NUR ---
[facility] notified last evening that pt was being discharged home per attending physician. Pt reported to attending physician that she does have home O2 in place at home. Discharge ppwk completed. [facility] faxed to [facility] this morning. Received fax confirmation. [facility] notified liaison of pt's discharge. [facility] also faxed discharge ppwk to [facility]. [facility] spoke with Kimberly at [facility] to notify of pt's discharge. No additional SW needs identified at this time. SW is available to assist should needs arise.
--- NOTE | 2021-03-03 08:40 | O ---
[facility] [place] [address] OPERATIVE REPORT Name: KALPANA BILLS Room #: 360-P [facility] IN M.R.#: [id number] Admission: 02/09/21 Attend Phys: Ugo Freeman MD Discharge: 03/01/21 Date of : 67 Report #: [id number] THIS REPORT FOR: cc: Kyle Driver MD, Samuel D. MD Soliman,Lidia Nick MD [facility] ~ DATE OF SERVICE: 02/26/2021 PREOPERATIVE DIAGNOSES: 1. Left thigh cellulitis with concern for abscess. 2. Sepsis with recent code blue event. 3. Severe super morbid obesity with a body mass index near 80, even in light of having had below knee amputations. 4. Diabetes mellitus. 5. Renal failure that is hemodialysis dependent. POSTOPERATIVE DIAGNOSES: 1. Left thigh cellulitis with concern for abscess. 2. Sepsis with recent code blue event. 3. Severe super morbid obesity with a body mass index near 80, even in light of having had below knee amputations. 4. Diabetes mellitus. 5. Renal failure that is hemodialysis dependent. PROCEDURES: Incision and drainage with packing of a large left thigh cellulitic wound with unroofing of purulent material. SURGEON: Lidia Lindo MD FINANCIAL RECORDING CLERK: Medical students x4. ANESTHESIA: General endotracheal anesthesia. ESTIMATED BLOOD LOSS: Minimal (less than 20 mL). COMPLICATIONS: None appreciated. SPECIMENS: Culture swab to microbiology for aerobic, anaerobic and fungal culture and sensitivity. INDICATIONS: The patient is a 55-year-old severe super-morbidly obese female with the above-mentioned medical problems in addition to several others who recently sustained a code blue event due to sepsis. The patient has had multiple evaluations of an area on her medial left thigh concerning for cellulitis, although no overt abscess has been demonstrated. As the patient continues with scant purulent drainage with compression of the wound and her [facility] [address] [place] [address] OPERATIVE REPORT Name: KALPANA BILLS Room #: 360-P [facility] IN [facility].#: [id number] Admission: 02/09/21 Attend Phys: Ugo rFeeman MD Discharge: 03/01/21 Date of : 67 Report #: [id number] white count has stayed elevated, even in light of chronic antibiotic therapy, indication was made for incision and drainage today after thorough consultation with pulmonary/critical care, infectious disease and the wound care services. DESCRIPTION OF PROCEDURE: After explaining the risks, benefits and alternatives of the procedure and obtaining consent, the patient was brought to the operating room supine on her hospital bed. After conducting a thorough timeout procedure, verifying correct patient and procedure. She was given general endotracheal anesthesia via her indwelling orotracheal tube. Once adequate anesthesia was obtained, her left medial thigh area of concern was prepped and draped in standard surgical sterile fashion with significant difficulty in retracting her pannus and both thighs outwardly to expose the wound in question. This was done with assistance of several medical students performing adequate laborious retraction. Once the patient's wound was sterilely prepped and draped, a #10 bladed scalpel was used to create a 6-inch incision overlying the area in question, which was carried down into the subcutaneous tissues with electrocautery for hemostasis. There was no overt abscess cavity; however, there were multiple layers of purulent drainage throughout the voluminous subcutaneous tissue. A finger sweep was now performed to break up any potential loculations and this was carried down to confluent healthy fatty tissue. The wound was irrigated and hemostasis was assured with electrocautery before packing it tightly with sterile saline soaked Kerlix gauze and dressing it with 4 x 4s, ABDs and Medipore tape, which completes the procedure. At the end of the procedure, all instrument, needle and sponge counts were correct. The patient tolerated the procedure without incident, was awakened in the operating room and transitioned back to her intensive care unit room, still intubated in stable condition with no apparent complications. <ELECTRONICALLY SIGNED> By: Lidia Lindo MD, FACS 03/03/21 0840 [id number] [id number] Lidia Lindo MD, FACS /nt
== END 2021-03-01 18:17 | disposition home health service (06) | DRG 870 ==
LOC: ER 14:20 → 4W 17:17 → EROBS 17:17 → ICU 17:17 → 4W 20:09 → ICU 02-15 18:06 → 3W 02-27 23:59
PROVIDERS: Anesthesiology; Hospitalist; Internal Medicine Nephrology; Internal Medicine Pulmonary Disease; Nurse Practitioner; Pediatrics; Radiology Diagnostic Radiology; Specialist; ADMIT Internal Medicine; ATTEND Internal Medicine
DX: A41.9 Sepsis, unspecified organism (principal); L89.323 Pressure ulcer of left buttock, stage 3; L89.313 Pressure ulcer of right buttock, stage 3; L89.153 Pressure ulcer of sacral region, stage 3; N18.6 End stage renal disease; I46.9 Cardiac arrest, cause unspecified; J69.0 Pneumonitis due to inhalation of food and vomit; R65.21 Severe sepsis with septic shock; J96.01 Acute respiratory failure with hypoxia; J96.02 Acute respiratory failure with hypercapnia; I26.99 Other pulmonary embolism without acute cor pulmonale; E43 Unspecified severe protein-calorie malnutrition; L03.116 Cellulitis of left lower limb; E87.1 Hypo-osmolality and hyponatremia; F11.20 Opioid dependence, uncomplicated; T82.41XA Breakdown (mechanical) of vascular dialysis catheter, initial encounter; I42.9 Cardiomyopathy, unspecified; G93.40 Encephalopathy, unspecified; L02.91 Cutaneous abscess, unspecified; Z68.45 Body mass index [BMI] 70 or greater, adult; I12.0 Hypertensive chronic kidney disease with stage 5 chronic kidney disease or end stage renal disease; E11.42 Type 2 diabetes mellitus with diabetic polyneuropathy; G89.4 Chronic pain syndrome; E66.01 Morbid (severe) obesity due to excess calories; E11.51 Type 2 diabetes mellitus with diabetic peripheral angiopathy without gangrene; D64.9 Anemia, unspecified; G47.33 Obstructive sleep apnea (adult) (pediatric); Z20.822 Contact with and (suspected) exposure to COVID-19; E03.9 Hypothyroidism, unspecified; F32.9 Major depressive disorder, single episode, unspecified; F17.210 Nicotine dependence, cigarettes, uncomplicated; K21.9 Gastro-esophageal reflux disease without esophagitis; R53.81 Other malaise; I95.89 Other hypotension; Z91.19 Patient's noncompliance with other medical treatment and regimen; Z99.2 Dependence on renal dialysis; Z89.512 Acquired absence of left leg below knee; Z89.511 Acquired absence of right leg below knee; Z79.4 Long term (current) use of insulin; Z88.2 Allergy status to sulfonamides; Z79.899 Other long term (current) drug therapy
CPT/HCPCS: 10040; 10078; 10879; 32100; 50101; 50386; 50403; 62110; 62900; 65040; 85026; 85076

== ENCOUNTER 2021-03-08 15:45 | Inpatient (IN) | payer OTHER ==
[~2021-03-08] VITALS: Ht 175.3 cm; Wt 189.3 kg
[~2021-03-08 15:45] MED LIST changes: +ARIPIPRAZOLE10 MG PO; +NORVASC5 MG PO; +OXYCODONE-APAP1 TAB PO; +PREDNISONE 10 M10 M1 PO
[2021-03-08 15:46] VITALS: BP 104/55
[2021-03-08 16:24] LABS: ABSOLUTE NEUTROPHILS 11.9 thou/uL (1.4-8.2); EOSINOPHILS 0.2 % (0.0-3.0); HEMATOCRIT 24.7 % (37.0-47.0); LYMPHOCYTES 4.5 % (24.0-44.0); MCH 31.2 pg (26.0-34.0); MCHC 32.3 g/dL (28.0-37.0); MCV 96.6 fL (80.0-100.0); MONOCYTES 5.6 % (1.0-8.0); PLATELET COUNT 240 thou/uL (150-400); POLYS 88.7 % (36.0-66.0); RBC 2.56 mil/uL (4.20-5.00); RDW 16.7 % (10.5-14.5); WBC 13.4 thou/uL (4.0-11.0)
[2021-03-08 16:38] LABS: ALBUMIN 2.8 g/dL (3.4-5.0); CREATININE 8.4 mg/dL (0.6-1.0); DIRECT BILIRUBIN 0.2 mg/dL (<0.1-0.2); POTASSIUM 5.5 mmol/L (3.5-5.1); TOTAL BILIRUBIN 0.7 mg/dL (0.2-1.0); TOTAL PROTEIN 6.2 g/dL (6.4-8.2)
[2021-03-08 18:29] LABS: URINE BILIRUBIN NEGATIVE (Negative); URINE BLOOD 2+ (Negative); URINE COLOR YELLOW; URINE GLUCOSE-RANDOM* 2+ (Negative); URINE KETONES NEGATIVE (Negative); URINE LEUKOCYTES-REFLEX TRACE (Negative); URINE NITRITE-REFLEX NEGATIVE (Negative); URINE PROTEIN (DIPSTICK) 2+ (Negative); URINE SPECIFIC GRAVITY 1.015 (1.005-1.035); URINE UROBILINOGEN 0.2 E.U./dl (0.2-1.0)
[2021-03-08 18:30] LABS: URINE CLARITY SL HAZY
[2021-03-08 18:37] LABS: SQUAMOUS >10 Many /LPF (0-3)
[2021-03-08 18:38] LABS: CASTS None Seen /LPF (None Seen); CRYSTALS None Seen /LPF (None Seen); URINE RBC 3-10 Few /HPF (NONE SEEN); URINE WBC-REFLEX 6-15 Few /HPF (0-5)
[2021-03-08 20:42] VITALS: BP 127/64
[2021-03-08 20:50] VITALS: BP 137/80
[2021-03-08 21:38] VITALS: BP 151/61
--- NOTE | 2021-03-09 02:37 | NUR ---
PT ARRIVED FROM THE ER. A&OX4 ADMISSION DONE AND PT ORIENTED TO THE UNIT. IVAN AKA AND MULTIPLE WOUNDS ON STUMPS FROM BLISTERS AND LEAKING. WOUND PICTURE TAKEN. IV INTACT AND ABX INFUSING. DIALYSIS TESIO ON RT CHEST AND PER PT LAST DIALYSIS WAS ON Monday03/01/21. PT HAD A HUGE BM. PERICARE GIVEN. WOUND PICTURE ALSO TAKE OF LEFT GROIN. FALL PREC IN PLACE AND WILL CONT TO MONITOR.
[2021-03-09 05:07] LABS: HEMATOCRIT 23.2 % (37.0-47.0); HEMOGLOBIN 7.7 gm/dL (12.0-15.0); MCH 32.2 pg (26.0-34.0); MCHC 33.1 g/dL (28.0-37.0); MCV 97.3 fL (80.0-100.0); RBC 2.39 mil/uL (4.20-5.00); RDW 16.9 % (10.5-14.5); WBC 11.9 thou/uL (4.0-11.0)
[2021-03-09 05:18] LABS: CREATININE 8.7 mg/dL (0.6-1.0); MAGNESIUM 1.8 mg/dL (1.8-2.4); POTASSIUM 5.8 mmol/L (3.5-5.1)
[2021-03-09 05:45] VITALS: BP 134/56
[2021-03-09 07:00] VITALS: BP 140/63
--- NOTE | 2021-03-09 13:50 | NUR ---
Nutrition: pt admitted with wound infection. PMH: DM, ESRD, dialysis, CHF, bilateral BKA. Wounds to LE, left groin, right/left stump wounds. Wound care consult. Pt was here earlier this month S/P Code during dialysis and required intubation. Had NPO status > 1 week. Recent intake however has been good and pt reports ate > 75% of meals today. Current weight down about 6# from weight earlier this month. Would expect fluctuations with dialysis however pt with extreme class 3 obesity with BMI 61. Currently only on Carb controlled diet. RD is adding Renal restriction. K+ 5.8, hyperkalemic. RD reviewed nutrition/protein needs with pt. Offer beneprotein on trays. Place as low risk
--- NOTE | 2021-03-09 14:39 | NUR ---
PT ADMITTED RELATED TO WOUND INFECTION, ANEMIA, MORBID OBESITY. CM REVIEWED CHART AND SPOKE WITH CARE TEAM. PT IS FAMILIAR TO CM FROM PREVIOUS ADMISSION. MET WITH PT AT BEDSIDE THIS DAY. PT APPEARED TO BE A&O X4. CM ROLE INTRODUCED. PT INDICATED SHE HAD DISCHARGED HOME 03/01 HOME TO SELF CARE. PT INDICATED SHE HADN'T BEEN ABLE TO GET AROUND SHE HAD PRIOR TO HOSPITALIZATION DUE TO INCREASED WEAKNESS AND WOUNDS. PT HADN'T BEEN ABLE TO GET TO DIALYSIS SINCE [place] 03/01. PT INDICATED SHE IS RECEPTIVE TO SHORT TERM SKILLED REHAB STAY UPON DC. CM PROVIDED [facility] DUAL COMPLETE SNF LIST FOR REVIEW. CM TO SEE TO WHERE SHE WANTS REFERRALS SENT. CM FOLLOWING REGARDING DC PLANNING.
--- NOTE | 2021-03-09 18:10 | NUR ---
PATIENT CARE ASSUMED AT 0700 - PATIENT ALERT AND ORIENTED X 4. BILATERAL AMPUTEE LOWER EXTREMITIES JUST BELOW THE KNEE. DRESSING ON STUMPS CHANGED - ALONG WITH VERY DEEP WOUND IN LEFT GROIN AREA. PATIENT HAD WOUND PACKED WITH KERLEX - PATIENT DIFFICULT TO MANUVER - USES BEDPAN TO ASSIST WITH VOIDING. PATIENT STATES NO PAIN - PATIENT HAD DIALYSIS TODAY - TOLERATED WELL 11 LITERS OF FLUID REPORTED DRAINED BY NURSE. TAKES MEDICATIONS WHOLE WITH NO INCIDENCE.
[2021-03-09 18:18] VITALS: BP 158/63
[2021-03-09 19:13] VITALS: BP 131/65
[2021-03-09 21:00] VITALS: BP 132/52
[2021-03-10 04:00] VITALS: BP 120/50
[2021-03-10 07:31] VITALS: BP 132/52
--- NOTE | 2021-03-10 09:15 | NUR ---
ASSUMED CARE ON 03/09/21 @ 1900, IN BED BKA AMPUTATION BILAT 4 YEARS. MULTIPLE WOUNDS ON STUMPS AND LEGS BILAT. 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 GROIN WOUND WITH TUNNELING PROPERTIES, DRESSING C/D/I. STAGE 4 KIDNEY FAILURE, HAD DIALYSIS ON 03/08. IV SITE IN RIGHT FOREARM. IV ANTIBIOTIC MEDS PROVIDED ORDERED. RIGHT CHEST PORT WITH NO REDNESS/SWELLING OR INDURATION. A&OX4, FLAT AFFECT NOTED. COOPERATIVE WITH CARE. INCONTINENT OF B&B. CALL LIGHT WITHIN REACH.
--- NOTE | 2021-03-10 12:04 | HC ---
[facility] [place] [address] CONSULTATION Name: KALPANA BILLS Room #: 458-P [facility] IN M.R.#: [id number] Admission: 03/08/21 Attend Phys: Castro Song MD Discharge: Date of : 67 Report #: [id number] THIS REPORT FOR: cc: Kyle Driver MD, Samuel D. MD Barry, Joseph W. MD ~ DATE OF SERVICE: 03/09/2021 INFECTIOUS DISEASE CONSULTATION ATTENDING PHYSICIAN: Dr. Song REASON FOR EVALUATION: Multifocal wounds, felt to be secondarily infected. HISTORY OF PRESENT SUBJECTIVE: Chart reviewed. The patient examined. This is a 55-year-old woman well known to myself, who had been discharged roughly a week ago, is notable for morbid obesity; end-stage renal disease, on dialysis; and diabetes. She has had bilateral below-knee amputations. She had extended course previously that did require ICU stay due to a cardiopulmonary arrest requiring resuscitation. She had developed an abscess involving the perineal site that was eventually debrided and received extended course of antibiotics as well. While at home, she noted multiple sites of what appeared to be superficial bullous lesions that denuded. It is not entirely clear if these were pressure-related areas, two noted on the left stump and one laterally, one over the medial distal aspect. She does have superficial bullous lesion on the right as well at the distal medial aspect. She does not wear prosthesis. She developed an additional wound in the left inguinal site due to what appeared to be worsening, she re-presented to the Emergency Room. She is not clear if she had fevers, but generally was feeling poorly. Coronavirus testing was negative, did have a mildly elevated white count 13.4. Lactic acid 1.0. Urinalysis did show moderate pyuria. Blood cultures collected yesterday are sterile thus far. She was empirically placed on vancomycin and Zosyn. Wound care has been evaluating. ALLERGIES: Listed to CEPHALOSPORINS, SULFA which causes anaphylaxis, LATEX. CURRENT MEDICATIONS: Include vancomycin, insulin, pantoprazole, Zosyn, hydrocodone as needed, p.r.n. ondansetron. PAST MEDICAL HISTORY: As described above, diabetes mellitus complicated severe sequelae including diffuse vasculopathy; has end-stage renal disease, on dialysis; bilateral below-knee amputations; has a cardiomyopathy status; hypertension. She is morbidly obese. Hypothyroidism, iron deficiency anemia, depression. SOCIAL HISTORY: Former smoker, no ethanol, no illicit drug use. [address] [address] CONSULTATION Name: KALPANA BILLS Room #: 458-P [facility] IN [facility]#: [id number] Admission: 03/08/21 Attend Phys: Castro Song MD Discharge: Date of : 67 Report #: [id number] FAMILY HISTORY: Noncontributory. REVIEW OF SYSTEMS: Otherwise, as noted above. PHYSICAL EXAMINATION: GENERAL: She is chronically ill-appearing, undernourished. She is generally lucid at this point, in uksw-jv-tpxcdywi distress. VITAL SIGNS: Temperature 97.2, pulse rate 92, respirations 16, blood pressure is 140/63. SKIN: Warm, dry, no rashes. HEENT: Normocephalic. Extraocular muscles intact. NECK: Supple. LUNGS: Diminished breath sounds. She has got some bilateral crackles. HEART: Regular, borderline tachycardic. I do not appreciate a murmur. ABDOMEN: Large pannus, firm. No overt peritoneal signs. Multiple sites of wound noted ____ in the left groin. It has got some purulent material. There is moderate degree of surface inflammation noted at the margins. She does have some superficial what appeared to be denuded bullous lesions lateral distal aspect of her left stump site, also in the distal medial aspect. Again, these are mildly inflamed as well and does have a bullous lesion that is intact on the distal medial aspect of the right stump. GENITOURINARY: Deferred. RECTAL: Deferred. LABORATORY DATA: Electrolytes: Sodium 143, potassium 5.8, chloride 102, bicarbonate is 22, anion gap of 14, BUN and creatinine 96 and 8.7, glucose of 145. CBC: White count of 11.9, H and H 7.7 and 23.2, platelets of 197. Urinalysis, moderate pyuria. ASSESSMENT AND PLAN: Multifocal sites of what appeared to be skin and soft tissue infections. Suspect the distal stumps on the basis of pressure, perhaps ____ the left inguinal site. We will continue empiric therapy, presume a skin source at this point staph and strep. Vancomycin should give some coverage and exclude a polymicrobial etiology involving the groin. There is no particular odor at this point to suggest anaerobes. She is not overtly toxic, although she is chronically ill-appearing, would be concerned about additional complications. Continue wound care as prescribed, favor cultures with the next dressing change. We will add incentive spirometry. <ELECTRONICALLY SIGNED> By: Tyrese Cota MD 03/10/21 1204 1009 1150 Tyrese Cota MD /nt
--- NOTE | 2021-03-10 14:24 | NUR ---
CM FOLLOWED UP WITH PT THIS MORNING. PT PROVIDED THREE FACILITIES SHE WANTED REFERRALS SENT TO FOR POSSIBLE ADMISSION. [facility] [place], [facility] [place], AND [facility]. CM FAXED REFERRALS. PT TO HAVE DIALYSIS THIS DAY. PT CONTINUES ON IV VANC AND ZOSYN. CM FOLLOWING REGARDING DC PLANNING.
--- NOTE | 2021-03-10 15:31 | NUR ---
ASSUMED PT CARE THIS AM. PT A&OX4, ABLE TO MAKE NEEDS KNOWN. PATIENT MAX ASSIST TO REPOSITION IN BED. PATIENT INCONTINENT OF BOWEL AND BLADDER. PATIENT TO RECEIVE DIALYSIS THIS DAY. PATIENT ON ROOM AIR. PATIENT DENIES PAIN. FALL PRECAUTIONS ARE IN PLACE, CALL LIGHT WITHIN REACH.
[2021-03-10 16:51] VITALS: BP 166/71
[2021-03-10 20:43] VITALS: BP 154/69
[2021-03-11 03:30] VITALS: BP 146/64
--- NOTE | 2021-03-11 04:47 | NUR ---
ASSUMED PT CARE THIS PM. PT IS ALERT AND ORIENTED X4. WOUND DRSG WAS DONE AND PT DID NOT C/O PAIN DURING THE PROCESS.PT HAS TESIO CATHON THE LEFT SIDE OF THE CHEST. PT HAS DRSG ON THE R NECK FROM AN OLD CENTRAL LINE FROM PREVIOUS HOSPITALIZATON. PT IS INCONTINENT OF BM. VS WERE WITH NORMAL RANGE. MEDS WERE GIVEN PER EMAR ORDERS. PT DID NOT VERBALIZE ANY CONCERNS. FALL PRECAUTIONS IN PLACE. WILL CONTINUE TO MONITOR.
[2021-03-11 07:44] VITALS: BP 108/53
[2021-03-11 10:39] LABS: HEMATOCRIT 21.7 % (37.0-47.0); HEMOGLOBIN 7.2 gm/dL (12.0-15.0); MCH 32.1 pg (26.0-34.0); MCHC 32.9 g/dL (28.0-37.0); MCV 97.4 fL (80.0-100.0); RBC 2.23 mil/uL (4.20-5.00); RDW 16.9 % (10.5-14.5); WBC 7.6 thou/uL (4.0-11.0)
[2021-03-11 10:56] LABS: CALCIUM 7.3 mg/dL (8.5-10.1); POTASSIUM 3.6 mmol/L (3.5-5.1)
[2021-03-11 11:00] LABS: CREATININE 4.9 mg/dL (0.6-1.0)
--- NOTE | 2021-03-11 11:48 | NUR ---
CM HEARD FROM [facility] THIS AM AND THEY INDICATED THAT THEY ARE ABLE TO ACCEPT AND ASKED FOR UPDATES AND AN INDICATION OF WHEN THEY SHOULD SUBMIT FOR AUTH. CM NOTIFIED PT AND SHE IS AGREEABLE TO GO TO [facility] ONCE MEDICALLY STABLE. CM FOLLOWING REGARDING DC PLANNING.
--- NOTE | 2021-03-11 15:10 | NUR ---
ASSUMED PT CARE THIS AM. PT A&OX4, ABLE TO MAKE NEEDS KNOWN. PATIENT REPORTING NO PAIN. IV REMAINS PATENT. PATIENT ON ROOM AIR. MEDICAITONS TAKEN WITHOUT ISSUE. FALL PRECAUTIONS ARE IN PLACE, CALL LIGHT WITHIN REACH. WOUND CARE COMPLETED WITHOUT ISSUE, PATIENT TOLERATED WELL.
[2021-03-11 16:44] VITALS: BP 122/57
[2021-03-11 16:48] VITALS: BP 102/63
[2021-03-11 19:25] VITALS: BP 125/52
--- NOTE | 2021-03-12 05:15 | NUR ---
ASSUMED PT CARE THIS PM. PT IS ALERT AND ORIENTED X4. DRSG CHANGE DONE AND PT DID NOT C/O PAIN DURING THE PROCESS. PT HAS TESIO CATH TO THE RIGHT CHEST. PT IS INCONTINENT OF BM. MEDS WERE GIVEN PER EMAR ORDERS. PT DID NOT VERBALIZE ANY CONCERNS. FALL PRECAUTIONS IN PLACE. WILL CONTINUE TO MONITOR.
[2021-03-12 07:35] VITALS: BP 117/59
--- NOTE | 2021-03-12 14:06 | HC ---
[facility] [place] [address] CONSULTATION Name: KALPANA BILLS Room #: 458-P AD[facility] IN M.R.#: [id number] Admission: 03/08/21 Attend Phys: Castro Song MD Discharge: Date of : 67 Report #: [id number] THIS REPORT FOR: cc: Kyle Driver MD, Samuel D. MD Jetmore, Allen B. MD ~ DATE OF SERVICE: 03/09/2021 REASON FOR CONSULTATION: Cellulitis of bilateral below-knee amputation stumps with draining wound, nonhealing incision and drainage site of the left upper thigh with drainage. HISTORY OF PRESENT ILLNESS: The patient is a 55-year-old woman with end-stage renal disease, on hemodialysis, diabetes mellitus type 2, is admitted at [facility] from 02/09/2021 through 03/01/2021 for cellulitis. Her hospitalization was complicated by cardiac arrest, code blue and intubation and ICU stay. During her stay, she underwent incision and drainage of left upper extremity inner thigh infection by General Surgery. She was discharged home with home health. She has bilateral below-knee amputation. She was admitted with edema, cellulitis and draining wounds of bilateral above-knee amputation stump wound with cellulitis and increased drainage and cellulitis of her left upper inner thigh wound. PAST MEDICAL HISTORY: Super morbid obesity, congestive heart failure, diabetes mellitus type 2, end-stage renal disease, on hemodialysis, peripheral vascular disease, obstructive sleep apnea, bilateral lymphedema, BKA stumps. SOCIAL HISTORY: The patient is a nonsmoker. PAST SURGICAL HISTORY: Bilateral below-knee amputations, incision and drainage of left upper inner thigh wound on most recent hospitalization. ALLERGIES: CEPHALEXIN, SULFA, LATEX. PHYSICAL EXAMINATION: GENERAL: Shows a super morbidly obese woman sitting up in bed. LUNGS: Respirations are unlabored. ABDOMEN: Super morbidly obese. EXTREMITIES: Examination of the lower extremities shows an open nonhealing wound of the left upper inner thigh with a linear incision measuring approximately 8 cm in length. This is draining some purulent fluid. Exploration of the wound with a gloved finger shows the wound to be approximately 8 cm deep. Examination of bilateral below-knee amputation stumps shows lymphedema of both legs with some redness and cellulitis. There are blistering open wounds of both amputation stumps with some drainage. [address] [address] CONSULTATION Name: KALPANA BILLS Room #: 458-P [facility] IN .R.#: [id number] Admission: 03/08/21 Attend Phys: Castro Song MD Discharge: Date of : 67 Report #: [id number] IMPRESSION: 1. Super morbid obesity. 2. End-stage renal disease, on hemodialysis. 3. Diabetes mellitus type 2 with skin complications. 4. Bilateral lymphedema of legs. 5. Status post bilateral below-knee amputation. Legs are now edematous and cellulitic with draining wound. 6. Nonhealing incision and drainage site of left upper inner thigh with purulent drainage. PLAN: Order wound cultures of amputation stump wounds and the left upper inner thigh wound. Water packing of the left upper inner thigh wound with quarter-strength Dakin's packing twice daily, Xeroform and gauze dressings to the wounds of the amputation stump, elevate stump with pillows. Antibiotics per Infectious Disease. Wound Care Team will follow. <ELECTRONICALLY SIGNED> By: Festus Jacobs MD 03/12/21 1406 [id number] [id number] Festus Jacobs MD /nt
--- NOTE | 2021-03-12 14:17 | NUR ---
CM SENT UPDATES OVER TO [facility] IN [place]. FACILITY SUBMITTED FOR INSURANCE AUTH THIS DAY. AWAITING INSURANCE AUTH. PT GETTING DIALYSIS THIS DAY. CONTACT [facility] AT TO CHECK AUTH STATUS OVER THE WEEKEND AND TO FACILITATE DC IS AUTH RECIEVED. FAX 0RDERS TO . CM FOLLOWING REGARDING DC PLANNING.
--- NOTE | 2021-03-12 15:44 | NUR ---
Assumed pt care at 7am. Pt in bed resting without any c/o. Assessment completed.vss. Pt tolerated meds and diet.Hemodialysis done today for over 4hours. Per dx rn report,about 5liter of fluid was taken off today.Complete bath and bed change done.Family in room visiting at present. Will continue to monitor.
[2021-03-12 16:15] VITALS: BP 130/46
[2021-03-12 20:05] VITALS: BP 134/56
[2021-03-12 21:06] VITALS: BP 134/56
--- NOTE | 2021-03-13 05:10 | NUR ---
03/12/21 ASSUMED CARE @ 1900 FOR NOC SHIFT, IN BED AWAKE ALERT ORIENTED X4 IV ANTIBIOTIC THERAPY PROVIDED ORDERED. IV SITE ON RIGHT HAND. ON ISOLATION FOR ESBL IN THE URINE. INCONTINENT AND BEDPAN X2 WITH X3 STAFF REQUIRED AND EXTRA TIME INVOLVED. DSG ON LEFT UPPER THIGH CHNG, PACKED WITH 1/4 DAKINS SOAKED GAUZE AND COVERED WITH ABD PAD. FLAT AFFECT NOTED, DOES MAKE EFFORT TO ASSIST IN TURNING AND PULLING UP IN BED BY USING HER HANDS ON THE RAIL (WITH COACHING). REPORTS PAIN ON BOTTOM, HOWEVER DENIES DESIRE/NEED FOR EITHER NORCO OR TYLENOL. WILL CONTINUE TO MONITIR FOR SAFETY AND COMFORT, CALL LIGHT WITHIN REACH AND POSESSIONS WITHIN REACH.
[2021-03-13 05:54] LABS: HEMOGLOBIN 6.5 gm/dL (12.0-15.0)
[2021-03-13 05:56] LABS: MCH 32.1 pg (26.0-34.0); MCHC 32.7 g/dL (28.0-37.0); MCV 98.1 fL (80.0-100.0); RBC 2.04 mil/uL (4.20-5.00); RDW 16.7 % (10.5-14.5); WBC 6.6 thou/uL (4.0-11.0)
[2021-03-13 06:04] LABS: CALCIUM 7.6 mg/dL (8.5-10.1); CREATININE 4.2 mg/dL (0.6-1.0); POTASSIUM 3.6 mmol/L (3.5-5.1)
[2021-03-13 07:20] VITALS: BP 118/61
--- NOTE | 2021-03-13 10:38 | NUR ---
[facility] NOTIFIED OF PATIENTS D/C TOMORROW AT [address]. MORENO. CHARGE NURSE JOE AND US LY ARE AWARE AND HAVE NUMBERS TO CALL REPORT AND FAX D/C ORDERS AND SUMMARY. BRITTNEY FROM [facility] CALLED BACK AND OXYGRAPH OPERATOR TIME WILL BE BETWEEN 2PM AND 3 PM. [facility]
[2021-03-13 13:39] VITALS: BP 109/47; BP 121/60; BP 126/64; BP 147/49
--- NOTE | 2021-03-13 14:10 | NUR ---
ASSUMED PT CARE THIS AM. PT A&OX4, ABLE TO MAKE NEEDS KNOWN. PATIENT REPORTS NO PAIN. IV REMAINS PATENT, MEDICATIONS INFUSING WITHOUT ISSUE. PATIENT RECEIVING 1 UNIT RBC THIS SHIFT. WOUND DRESSINGS CHANGED, PATIENT TOLERATED WELL. PATIENT ON ROOM AIR. FALL PRECAUTIONS ARE IN PLACE, CALL LIGHT WITHIN REACH.
[2021-03-13 16:39] VITALS: BP 121/60
[2021-03-13 19:04] LABS: HEMATOCRIT 22.4 % (37.0-47.0); HEMOGLOBIN 7.2 gm/dL (12.0-15.0)
[2021-03-13 19:39] VITALS: BP 155/64
--- NOTE | 2021-03-14 04:05 | NUR ---
PT ALERT AND ORIENTED. YOSSI. TOOK HS MEDS W/O ANY DIFFICULTIES. PLACED ON BEDPAN AND SHE HAD A LARGE BM. PT WOUND DRESSING IN LEFT INNER/UPPER THIGH WAS CHANGED-SHE TOLERATED IT WELL. OTHER SPOTS ON STUMPS, LEFT AND RIGHT ITCHIAL TUBEROSITY, WELL RIGHT THIGH ALL CLEANED AND BARRIER CREAM APPLIED. PT IS AFEBRILE. SHE DENIES PAIN. PT IS ON ROOM AIR, SHE SLEEPS WHILE SITTING IN BED, LEANED OVER ON BEDSIDE TABLE INFRONT OF HER SHE DENIES ANY SOA OR ANY FURTHER CONCERNS. FREQ CHECKS PROVIDED.
[2021-03-14 06:06] LABS: HEPATITIS B SURFACE AG Negative (Negative)
[2021-03-14 07:44] VITALS: BP 127/60
[2021-03-14] MEDS ORDERED: AUGMENTIN 875-1 EACH PO (12:43)
--- NOTE | 2021-03-14 14:39 | NUR ---
ASSUMED PT CARE THIS AM. PT A&OX4, ABLE TO MAKE NEEDS KNOWN. PATIENT REPORTING NO PAIN. PATIENT WITH BILATERAL BKA'S. PATIENT WITH A RIGHT CHEST DIALYSIS PORT. PATIENT WITH MULTIPLE WOUNDS, TO BE DRESSED. PATIENT ON ROOM AIR. IV REMAINS PATENT, MEDICATIONS TGIVEN WITHOUT ISSUE. FALL PRECAUTIONS ARE IN PLACE, CALL LIGHT WITHIN REACH.
[2021-03-14 16:59] VITALS: BP 146/72
[2021-03-14 19:09] VITALS: BP 126/50
--- NOTE | 2021-03-15 04:37 | NUR ---
ASSUMED PT CARE THIS PM.PT IS ALERT AND ORIENTED X4. DRGS CHANGE WAS DONE AND PT DID NOT C/O PF PAIN DURING THE PROCESS. PT HAS TESIO CATH TO THE RIGHT CHEST WITH NO SIGN OF REDNESS. MEDS WERE GIVEN PER EMAR ORDERS. NO VISIBLE SIGN OF DISTRESS WAS NOTED. PT PREFERS TO HAVE BED HIGH. FALL PRECAUTIONS IN PLACE. WILL CONTINUE TO MONITOR.
[2021-03-15 05:46] VITALS: BP 128/52
[2021-03-15 07:15] VITALS: BP 154/69
--- NOTE | 2021-03-15 11:53 | NUR ---
CM COMPLETED HC965L AND FAXED THAT, ORDERS, AND SUMERY TO [facility]. CM SET UP [facility] FOR COSMETICS DEMONSTRATOR BETWEEN 11:42-1442 THIS AFTERNOON. CHART COPY MADE. PT IS AWARE AND AGREEABLE. NURSE GIVEN NUMBER FOR REPORT. NO OTHER CM INTERVENTION INDICATED. CASE CLOSED.
== END 2021-03-15 15:11 | DRG 871 ==
LOC: ER 15:45 → 4W 18:55 → EROBS 18:55 → 4W 21:15
PROVIDERS: Emergency Medicine; Hospitalist; Internal Medicine Nephrology; Nurse Practitioner Family; ADMIT Hospitalist; ATTEND Hospitalist
PROC: 5A1D70Z Performance of Urinary Filtration, Intermittent, Less than 6 Hours Per Day (ICD-10-PCS; principal; 2021-03-12)
PROC: 30233N1 Transfusion of Nonautologous Red Blood Cells into Peripheral Vein, Percutaneous Approach (ICD-10-PCS; 2021-03-13)
PROC: 5A1D70Z Performance of Urinary Filtration, Intermittent, Less than 6 Hours Per Day (ICD-10-PCS; 2021-03-14)
DX: A41.9 Sepsis, unspecified organism (principal); L89.153 Pressure ulcer of sacral region, stage 3; L89.323 Pressure ulcer of left buttock, stage 3; L89.313 Pressure ulcer of right buttock, stage 3; L89.893 Pressure ulcer of other site, stage 3; N18.6 End stage renal disease; E43 Unspecified severe protein-calorie malnutrition; N39.0 Urinary tract infection, site not specified; I42.9 Cardiomyopathy, unspecified; L03.116 Cellulitis of left lower limb; L02.416 Cutaneous abscess of left lower limb; I13.2 Hypertensive heart and chronic kidney disease with heart failure and with stage 5 chronic kidney disease, or end stage renal disease; D64.9 Anemia, unspecified; E66.01 Morbid (severe) obesity due to excess calories; E11.42 Type 2 diabetes mellitus with diabetic polyneuropathy; I89.0 Lymphedema, not elsewhere classified; E87.5 Hyperkalemia; Z20.822 Contact with and (suspected) exposure to COVID-19; I50.9 Heart failure, unspecified; E03.9 Hypothyroidism, unspecified; E11.51 Type 2 diabetes mellitus with diabetic peripheral angiopathy without gangrene; G47.33 Obstructive sleep apnea (adult) (pediatric); F32.9 Major depressive disorder, single episode, unspecified; E78.5 Hyperlipidemia, unspecified; E11.22 Type 2 diabetes mellitus with diabetic chronic kidney disease; E11.628 Type 2 diabetes mellitus with other skin complications; K21.9 Gastro-esophageal reflux disease without esophagitis; R53.81 Other malaise; S81.802A Unspecified open wound, left lower leg, initial encounter; S81.801A Unspecified open wound, right lower leg, initial encounter; Z99.2 Dependence on renal dialysis; Z89.512 Acquired absence of left leg below knee; Z89.511 Acquired absence of right leg below knee; Z79.4 Long term (current) use of insulin; Z88.2 Allergy status to sulfonamides; Z88.8 Allergy status to other drugs, medicaments and biological substances; Z91.040 Latex allergy status; Z87.891 Personal history of nicotine dependence; X58.XXXA Exposure to other specified factors, initial encounter; Y93.89 Activity, other specified; Y92.89 Other specified places as the place of occurrence of the external cause; Y99.8 Other external cause status
CPT/HCPCS: 10040; 10045; 32100

== ENCOUNTER 2021-04-18 15:26 | Inpatient (IN) | payer OTHER ==
[~2021-04-18] VITALS: Ht 175.3 cm; Wt 178.2 kg
[~2021-04-18 15:26] MED LIST changes: +AUGMENTIN 875-1 EACH PO
[2021-04-18 15:27] VITALS: BP 87/39
[2021-04-18 17:27] LABS: URINE BILIRUBIN NEGATIVE (Negative); URINE BLOOD 3+ (Negative); URINE GLUCOSE-RANDOM* NEGATIVE (Negative); URINE KETONES 1+ (Negative); URINE PROTEIN (DIPSTICK) 3+ (Negative); URINE UROBILINOGEN 0.2 E.U./dl (0.2-1.0)
[2021-04-18 17:30] LABS: ABSOLUTE NEUTROPHILS 8.2 thou/uL (1.4-8.2); BASOPHILS 0.9 % (0.0-2.0); EOSINOPHILS 1.6 % (0.0-3.0); HEMATOCRIT 22.5 % (37.0-47.0); HEMOGLOBIN 7.1 gm/dL (12.0-15.0); LYMPHOCYTES 8.3 % (24.0-44.0); MCH 29.7 pg (26.0-34.0); MCHC 31.6 g/dL (28.0-37.0); MCV 94.1 fL (80.0-100.0); MONOCYTES 6.2 % (1.0-8.0); PLATELET COUNT 203 thou/uL (150-400); RBC 2.39 mil/uL (4.20-5.00); WBC 9.9 thou/uL (4.0-11.0)
[2021-04-18 17:34] LABS: URINE CLARITY CLOUDY; URINE LEUKOCYTES-REFLEX 2+ (Negative); URINE NITRITE-REFLEX POSITIVE (Negative)
[2021-04-18 17:35] LABS: CALCIUM 7.9 mg/dL (8.5-10.1); CREATININE 4.2 mg/dL (0.6-1.0); POTASSIUM 4.2 mmol/L (3.5-5.1)
[2021-04-18 17:37] LABS: BACTERIA-REFLEX >30 Many /HPF (None Seen); SQUAMOUS 0-3 Few /LPF (0-3); URINE WBC-REFLEX >25 Many /HPF (0-5)
[2021-04-18 17:38] LABS: AMORPHOUS URATES Many /LPF (None Seen); CASTS None Seen /LPF (None Seen)
[2021-04-18 17:45] LABS: ALBUMIN 2.1 g/dL (3.4-5.0); TOTAL BILIRUBIN 0.6 mg/dL (0.2-1.0); TOTAL PROTEIN 5.7 g/dL (6.4-8.2)
[2021-04-18] MEDS ORDERED: HYDRALAZINE 2525 MG PO (21:38)
[2021-04-18] MEDS ORDERED: HUMALOG100 UNIT/1 SUBQ (21:39)
[2021-04-18] MEDS ORDERED: LOPERAMIDE2 MG PO (21:40)
[2021-04-18 22:52] LABS: HCO3 22.5 mmol/L (22.0-26.0); PCO2 36.9 mmHg (35.0-45.0); pH 7.403 (7.360-7.450); sO2 91.3 % (92.0-98.0)
[2021-04-19] VITALS (19 sets, daily range): BP systolic 71–153; BP diastolic 21–122
[2021-04-19 06:14] LABS: MCH 30.1 pg (26.0-34.0); MCHC 32.1 g/dL (28.0-37.0); MCV 93.8 fL (80.0-100.0); RBC 2.1 mil/uL (4.20-5.00); WBC 7.3 thou/uL (4.0-11.0)
[2021-04-19 06:20] LABS: CALCIUM 7.7 mg/dL (8.5-10.1); CREATININE 4.7 mg/dL (0.6-1.0); POTASSIUM 3.9 mmol/L (3.5-5.1)
[2021-04-19 06:38] LABS: HEMOGLOBIN 6.3 gm/dL (12.0-15.0)
[2021-04-19 06:39] LABS: HEMATOCRIT 19.7 % (37.0-47.0)
--- NOTE | 2021-04-19 07:30 | EKG ---
[address] [place] [address] ELECTROCARDIOGRAM REPORT Name: KALPANA BILLS Room #: 170- ADM IN M.R.#: [id number] Admission: 04/18/21 Attend Phys: Castro Song MD Discharge: Date of : 67 Report #: [id number] [facility] ED Test Date: 2021-04-18 Test Time: 15:45:46 Pat Name: KALPANA BILLS Department: Room: 170 Gender: F Business Development Officer: ELIGIO : 1965 Requested By: Cachorro Mcpherson Order Number: [id number] : Zi Schilling Measurements Intervals [place] Rate: 91 P: MI: QRS: 46 QRSD: 86 T: 74 QT: 344 QTc: 424 Interpretive Statements Atrial fibrillation Low voltage, precordial leads Compared to ECG 02/17/2021 13:22:58 No significant changes Electronically Signed On 04-19-2021 7:30:13 RECRUITING ADMINISTRATOR by Zi Schilling [email or web address] <ELECTRONICALLY SIGNED> By: Zi Schilling MD, [facility] 04/19/21 0730 1545 1545 Zi Schilling MD, FACC /EPI
--- NOTE | 2021-04-19 10:45 | NUR ---
DAILYSIS NURSE JUDITH STATES HE SPOKE WITH KASSIE BROTHERS FLUIDS, 50 OF ALBUMIN
--- NOTE | 2021-04-19 10:50 | NUR ---
SPOKE WITH DR MORENO AND UPDATED HIM ON PT'S SITUATION
--- NOTE | 2021-04-19 12:54 | NUR ---
VASCULAR ACCESS CONSULT FOR IJ PLACEMENT. CONSENT SIGNED AND TIMEOUT PREFORMED WITH MAN RN PRIOR TO START. 6 FR TRIPLE LEFT IJ PLACED WITHOUT DIFFICULTY. 20CM WITH 0CM EXT. PATIENT TOLERATED WELL. GUIDEWIRE REMOVED INTACT. POSITIVE BILAT LUNG SLIDE POST PLACEMENT. ALL LUMENS FLUSH AND DRAW WELL. PLACEMENT CONFIRMED WITH CHEST X-RAY. OKAY TO USE LEFT IJ.
[2021-04-20] VITALS (94 sets, daily range): BP systolic 74–150; BP diastolic 21–64
[2021-04-20 05:38] LABS: RBC 2.28 mil/uL (4.20-5.00); WBC 7.9 thou/uL (4.0-11.0)
[2021-04-20 05:40] LABS: HEMATOCRIT 21.2 % (37.0-47.0); MCH 30.8 pg (26.0-34.0); MCHC 33.1 g/dL (28.0-37.0); MCV 92.9 fL (80.0-100.0); RDW 16.6 % (10.5-14.5)
--- NOTE | 2021-04-20 06:00 | NUR ---
AWAKE AND ALERT. LEVOPHED GTT AT 3 MCG ONLY REQUEST IS COFFEE WITH REAL SUGAR PROGRESSING TOWARD GOALS.
[2021-04-20 06:07] LABS: CALCIUM 7.6 mg/dL (8.5-10.1); POTASSIUM 3.9 mmol/L (3.5-5.1)
[2021-04-20 06:21] LABS: CREATININE 3.3 mg/dL (0.6-1.0)
--- NOTE | 2021-04-20 09:44 | NUR ---
Assess due to notification of pt with chronic wounds, multiple hospitalizations. Hx DM, bilateral BKA, ESRD/dialysis, CHF. Class III extreme obesity. Variable wts 380-423 lb, pt with chronic lymphedema. Add carb control and michael bid. Wound care indicating stage III sacral/ischial wounds and DTI wounds as well as surgical wound to left medial thigh. Will follow intake trends, otherwise low nutrition risk with appropriate nutrition interventions in place
--- NOTE | 2021-04-20 10:22 | HC ---
[facility] [place] [address] CONSULTATION Name: KALPANA BILLS Room #: 245-P [facility] IN M.R.#: [id number] Admission: 04/18/21 Attend Phys: Tavon Valles MD Discharge: Date of : 67 Report #: [id number] THIS REPORT FOR: cc: Kyle Driver MD, Samuel D. MD Althoff,Nikhil Salas MD ~ DATE OF SERVICE: 04/19/2021 CHIEF COMPLAINT: Multiple pressure ulcerations. HISTORY OF PRESENT ILLNESS: This is a 55-year-old female patient with whom I am familiar with, who was admitted to the hospital with lethargy and altered mental status. She has had a prior abscess/necrotizing type infection to the left medial thigh and underwent a surgical incision and drainage in 02/2021. She has had a history of recurring pressure ulcers to the sacral and ischial region. She is admitted to ICU, and I have been asked to see her with regard to wound care. PAST MEDICAL HISTORY: Positive for bilateral below-knee amputations, history of type 2 diabetes mellitus, congestive heart failure, morbid obesity, end-stage renal failure -- on hemodialysis, hypertension, hypothyroidism, obstructive sleep apnea, lymphedema, hyperlipidemia, prior cardiac arrest, prior sacral-gluteal ischial pressure ulcerations. SOCIAL HISTORY: The patient is negative for alcohol or tobacco use. FAMILY HISTORY: Noncontributory. ALLERGIES: INCLUDE KEFLEX, SULFA, LATEX. MEDICATIONS: Include carvedilol, albuterol, levothyroxine, pantoprazole, insulin, pregabalin, atorvastatin, Combivent, aripiprazole. REVIEW OF SYSTEMS: CONSTITUTIONAL: The patient denies fever or chills. Does complain of some generalized weakness. EYES: The patient denies visual changes, redness or drainage. ENT: The patient denies earache, nasal drainage, sore throat. CARDIOVASCULAR: The patient denies chest pain, palpitations, diaphoresis. PULMONARY: Denies cough, shortness of breath. GASTROINTESTINAL: The patient denies nausea, diarrhea or abdominal pain. ORTHOPEDIC: The patient is aware of the ulcerations, especially that of her left medial thigh. Others systems in a 14-point review of systems are negative. [address] [address] CONSULTATION Name: KALPANA BILLS Room #: 245-P [facility] IN ..#: [id number] Admission: 04/18/21 Attend Phys: Tavon Valles MD Discharge: Date of : 67 Report #: [id number] PHYSICAL EXAMINATION: VITAL SIGNS: Include temperature 38.5, pulse 92, respiratory rate of 18, blood pressure 113/60. GENERAL: This is a chronically ill-appearing female patient who appears to be in mild discomfort. HEENT: Head normocephalic. Nose and throat clear. NECK: Supple. LUNGS: Diminished. HEART: Irregular. ABDOMEN: Soft, obese, nontender. Left thigh demonstrates surgical wound to the left medial thigh. It is healthy, clean, granulating, and a little bit of slough in the base, but is not overtly infected and no tenderness, surrounding erythema or fluctuance noted. The sacral-gluteal region demonstrates scattered mast as well as stage 3 pressure ulceration to the sacrococcygeal region as well as the ischial tuberosities bilaterally. She has a deep tissue injury to her right posterior thigh. NEUROLOGIC: The patient is awake and alert. LABORATORY DATA: Include sodium 138, potassium 3.9, chloride 103, CO2 of 26, BUN 31, creatinine 4.7, glucose of 86. White blood cell count 7.3 with a hemoglobin of 6.3, hematocrit of 19.7. CLINICAL IMPRESSION: 1. A surgical wound to the left medial thigh, status post incision and drainage following an abscess. Incision and drainage was performed on 02/26/2021. 2. Stage 3 pressure ulcer to the coccyx and bilateral ischial tuberosities and deep tissue injuries to the right ischial tuberosities. 3. Type 2 diabetes mellitus. 4. Morbid obesity. 5. Severe protein-calorie malnutrition with recent albumin of 2.2. RECOMMENDATIONS: At this point in time, recommend Z-Guard barrier cream to the sacral-gluteal ischial region b.i.d. and p.r.n. She will need low air loss mattress and q.2 hour turning and positioning. Recommend quarter strength Dakin's moist gauze packing to the left medial thigh daily and p.r.n. Antibiotics per hospitalist service. Continue with medical management of her diabetes and nutritional support. I appreciate being asked to see her in consultation. <ELECTRONICALLY SIGNED> By: Nikhil Pierce MD 04/20/21 1022 1559 39 Nikhil Pierce MD /nt
--- NOTE | 2021-04-20 16:44 | NUR ---
Case opened to follow for dc planning. Pt known to cm from previous admissions. She is currently in ICU being treated for sepsis/uti/wound infection. She is on levo for pressure support and iv atb. Wound care/ID and Renal are following. She is a hemo dialysis pt at [facility]. Most recently she was dc'd on 03-12-21 to SNF at [facility] and was still there under her skilled benefits. Red Lead Burner spoke with pt's spouse, Ella SCRUGGS and Jeannine Wilhelm in admissions at [facility]. All parties updated and clinical updated faxed to [facility]. Pt's spouse Ken indicates that they were still hoping the pt could get back home soon. Prior to going to snf she lived at home with spouse and children and had [facility] per mo medicaid/the whole person program 3.5 hrs a day. She used a sliding board and w/c for mobility. Therapy evals requested. Pt's spouse indicates he would like the pt to return to SNF [place] for additional rehab if approved by her ins plan. [facility] indicates they can accept for readmission pending ins auth. [place] timeframe is uncertain pending her progress. Will follow. Jeannine Wilhelm is covering admissions this week for [facility] and can be reached at [phone] and fax number [phone].
--- NOTE | 2021-04-20 23:59 | HC ---
[facility] [place] [address] CONSULTATION Name: KALPANA BILLS Room #: 245-P ADM IN M.R.#: [id number] Admission: 04/18/21 Attend Phys: Tavon Valles MD Discharge: Date of : 67 Report #: [id number] THIS REPORT FOR: cc: Kyle Driver MD, Samuel D. MD Geha, Daniel J. MD ~ DATE OF SERVICE: 04/19/2021 INFECTIOUS DISEASES CONSULTATION REASON FOR CONSULTATION: I was asked to evaluate concerning sepsis. HISTORY OF PRESENT ILLNESS: The patient is a 55-year-old known from her previous hospitalization where she had extensive wounds to her left groin and thigh that required surgical debridement. She also had ulcers involving the posterior perineum. She has underlying diabetes and end-stage renal disease as well as vasculopathy with bilateral BKAs. She was treated with IV antibiotic therapy followed by Augmentin. Hospitalized from 02/09/2021 through 03/15/2021. She had polymicrobial growth of left upper thigh wound infection. She also had a post-code respiratory failure with aspiration. She had ischemic encephalopathy, which has improved. Following discharge, she was back during the outpatient dialysis. She was hospitalized today to the Emergency Room with decreased mental status. Increased pain in her perineal region as well as her left groin. She has had pyuria identified. She had encephalopathy. Fever up to 38.5 degrees. She denies any headache, cough, sputum production, nausea, vomiting or diarrhea. She had a right chest tunneled catheter for dialysis. Following her admission, she had a left IJ catheter placed. She has an indwelling Moreira catheter now. No diarrhea. REVIEW OF SYSTEMS: A 14-point review was negative other than what has been described above. PAST MEDICAL HISTORY: Diabetes, congestive heart failure, morbid obesity, end-stage renal disease, on hemodialysis, hypertension, peripheral vascular disease, hypothyroidism, obstructive sleep apnea, lymphedema, depression, iron deficiency anemia, hyperlipidemia, cardiac arrest, chronic wound infections to her perineum, pulmonary embolism, cardiomyopathy, atrial fibrillation, and bilateral BKAs. FAMILY HISTORY: No report of tuberculosis. SOCIAL HISTORY: Nonsmoker, no significant alcohol intake. ALLERGIES: CEPHALEXIN, SULFA, LATEX. She does tolerate Zosyn. MEDICATIONS: As noted on her MAR, which were reviewed. [address] [address] CONSULTATION Name: KALPANA BILLS Room #: 245-P [facility] IN .R.#: [id number] Admission: 04/18/21 Attend Phys: Tavon Valles MD Discharge: Date of : 67 Report #: [id number] PHYSICAL EXAMINATION: VITAL SIGNS: She was afebrile and hemodynamically stable. Pulse 86, blood pressure 99/45, maximum temperature is 101.3 earlier today. GENERAL: She was alert and cooperative. She had mild confusion. She is on 1 liter of oxygen per nasal cannula. Morbidly obese. Wound to the left groin was stage 4, deep, granulation tissue formation with serous drainage. No surrounding cellulitis. She had pressure wounds to her perianal region and coccyx. There was no fluctuance. She had 2+ edema in her BKAs. HEENT: Eyes without scleral icterus. Mouth without mucositis. NECK: Supple. No palpable adenopathy. LUNGS: Few crackles in the bases bilaterally. HEART: Regular, without murmur. ABDOMEN: Obese, soft and nontender with no hepatosplenomegaly or mass. LABORATORY STUDIES: Reviewed. MICROBIOLOGY: Reviewed. IMAGING: Chest x-ray reviewed, noting perihilar and bilateral lower lobe infiltrates. IMPRESSION: A 55-year-old with sepsis related to pneumonia, urinary tract infection, perineal wounds. She has underlying diabetes, end-stage renal disease, congestive heart failure. She also has progressive anemia, multifactorial. Baseline hypertension, hypothyroidism. Suspect toxic metabolic encephalopathy. Central venous catheter infection would also be considered. RECOMMENDATION: The patient will remain in intensive care unit with fluid resuscitation. Vasopressor if needed. Broad antibiotic coverage. Await blood and urine cultures. Obtain sputum culture if able. Follow serial laboratory studies and chest x-ray. Wound care service to follow. Adjust antibiotics pending culture results. <ELECTRONICALLY SIGNED> By: Kris Wolfe MD 04/20/21 3029 1722 10 Kris Wolfe MD /nt
[2021-04-21] VITALS (73 sets, daily range): BP systolic 79–175; BP diastolic 24–90
--- NOTE | 2021-04-21 01:44 | NUR ---
assumed care of patient at 0000. Pt moaning but denies pain; on levo, hernández to dd, bilateral BKA, ESRD; will have HD tomorrow. BP drop while awaiting levo bag; now WNL; low dose Noted on statusboard of Lang [facility]; times of recently completed items inaccurate; but is accurate on 'view history' Kathleen CHAPA RN
[2021-04-21 04:49] LABS: HEMOGLOBIN 7.2 gm/dL (12.0-15.0); MCH 30.3 pg (26.0-34.0); MCHC 32.6 g/dL (28.0-37.0); MCV 93.1 fL (80.0-100.0); RBC 2.36 mil/uL (4.20-5.00); RDW 15.6 % (10.5-14.5); WBC 9.8 thou/uL (4.0-11.0)
--- NOTE | 2021-04-21 04:58 | NUR ---
Nursing Note Patient has rested intermittantly; Moreira to DD; aneuric. Pt to get dialysis today; vss; on low dose levophed; 2L NC while asleep d/t desaturations. Tylenol given for pain (see eMAR). Has been in afib K SAMMI CEJA
[2021-04-21 05:52] LABS: CALCIUM 7.7 mg/dL (8.5-10.1); CREATININE 4.2 mg/dL (0.6-1.0); POTASSIUM 3.9 mmol/L (3.5-5.1)
--- NOTE | 2021-04-21 12:50 | NUR ---
CM REVIWED CHART AND SPOKE WITH NURSE. PT'S CARE DISCUSSED DURING ICU ROUNDS THIS DAY. PT IS ON 2L O2 VIA NC. PT GETTING DIALYSIS THIS AM. WOUND CARE CONSULTED. CM ASKED THAT PT AND OT BE ORDERED. CM FOLLOWING. CM TO SEND UPDATES TO [employer] IN [facility] ONCE EVALS ARE COMPLETED. CM FOLLOWING REGARDING DC PLANNING.
[2021-04-22] VITALS (20 sets, daily range): BP systolic 87–135; BP diastolic 26–69
[2021-04-22 05:46] LABS: HEMATOCRIT 21.6 % (37.0-47.0); MCH 30.3 pg (26.0-34.0); MCHC 32.6 g/dL (28.0-37.0); MCV 92.9 fL (80.0-100.0); RBC 2.33 mil/uL (4.20-5.00); RDW 15.9 % (10.5-14.5); WBC 8.5 thou/uL (4.0-11.0)
[2021-04-22 06:18] LABS: CALCIUM 7.5 mg/dL (8.5-10.1); CREATININE 3.7 mg/dL (0.6-1.0); POTASSIUM 4.1 mmol/L (3.5-5.1)
[2021-04-22 07:12] LABS: HEPATITIS B SURFACE AG Negative (Negative)
--- NOTE | 2021-04-22 07:31 | NUR ---
No progress toward discharge goals this shift. Pt remains on Levophed at 2 mcg/min to maintain MAP > 60. Pt constantly moaning and crying regarding buttock pain. Pt given Medina x2 and repositioned every hour without significant decrease in discomfort. Pt had soft, unformed, semi-liquid brown stool x3 (1 moderate size, 2 small). No c/o of abdominal pain/cramping.
--- NOTE | 2021-04-22 10:46 | NUR ---
0730- IN.-- 929- IN.-- HAD 3 LARGE,VERY LOOSE BM'S SO FAR THIS AM. IS REFUSING A FMS. WOUNDS ARE MUCH WORSE W NEW AREAS DEVELOPED.STOOL WAS IN LT THIGH WOUND. TOTAL BATH GIVEN W S&W, WASHCLOTHS & TOWELS USED (PT STATES ALLERGY TO WIPES). ENTIRE BUTTOCK,NEW AREAS DISCOVERED COATED W PROTECTIVE ZINC PASTE p Q STOOL. WOUND CLEANED W S&W, DAKINS DRSG CHANGE. WOUND LOOKS GOOD,NO ODOR BUT DRAINAGE IS BLOODY.PT ENC TO ASSIST MORE W HER ADL'S. IS SUPRISINGLY STRONG W ASSISTING TO TURN (TAKES AT LEAST 2 TO TURN W HELP OF PT). USING LEGS TO SHIFT.ABLE TO SIT STRAIGHT UP IN BED W/O ASSIST.DENIES PAIN/DISCOMFORT/SOB. OVERHEAD TRAPEZE WOULD BE HELPFUL FOR PT TO ASSIST MORE W TURNING,PULLING SELF UP,ETC. UPDATED.--VW
--- NOTE | 2021-04-22 15:45 | NUR ---
55 year old female admitted with sepsis and sacral wound and awake and alert while titrating Levo. Noted C-diff as negative. Patient has increased PO intake and remains on 3 liters via NC. [facility] is alerted to possible SNF stay and will need updated therapy notes and then authorization from [facility] in order to be accepted and then admitted. CM to follow when moving closer to discharge needs being identified.
--- NOTE | 2021-04-22 17:25 | NUR ---
PATIENT ARRIVED TO UNIT AT APPX 1630 FROM ICU AFTER REPORT RECIEVED. PATIENT SITUATED IN ROOM. CLEANED OF STOOL TIMES ONE. NOW SITTING UP RECIEVING ANTIBIOTIC INFUSION AND EATING DINNER. CALL LIGHT WITHIN REACH. ISOLATON CART NOTED OUTSIDE OF ROOM.
[2021-04-23] VITALS (7 sets, daily range): BP systolic 96–129; BP diastolic 41–75
--- NOTE | 2021-04-23 03:27 | NUR ---
Assumed pt care at 1900. Pt is alert and oriented. Pt is fussy and continuously moan. Pt verbalizes pain. Pain med administered to patient. Assessment completed and documented. Vital signs stable. Scheduled meds administered to pt. No acute event noted in pt. Continue to monitor. No further needs at this time.
[2021-04-23 05:41] LABS: WBC 7.6 thou/uL (4.0-11.0)
[2021-04-23 05:45] LABS: MCH 30.7 pg (26.0-34.0); MCHC 33.1 g/dL (28.0-37.0); MCV 92.7 fL (80.0-100.0); RBC 2.09 mil/uL (4.20-5.00)
[2021-04-23 05:57] LABS: CALCIUM 7.6 mg/dL (8.5-10.1); CREATININE 4.4 mg/dL (0.6-1.0); POTASSIUM 3.8 mmol/L (3.5-5.1)
[2021-04-23 06:23] LABS: HEMATOCRIT 19.4 % (37.0-47.0); HEMOGLOBIN 6.4 gm/dL (12.0-15.0)
[2021-04-23 22:26] LABS: HEMOGLOBIN 7.2 gm/dL (12.0-15.0)
[2021-04-24 01:05] LABS: HEMATOCRIT 22.1 % (37.0-47.0); HEMOGLOBIN 7.2 gm/dL (12.0-15.0); MCH 29.8 pg (26.0-34.0); MCHC 32.5 g/dL (28.0-37.0); MCV 91.6 fL (80.0-100.0); RBC 2.41 mil/uL (4.20-5.00); RDW 16.5 % (10.5-14.5); WBC 7.7 thou/uL (4.0-11.0)
[2021-04-24 01:11] LABS: CALCIUM 7.3 mg/dL (8.5-10.1); CREATININE 3.6 mg/dL (0.6-1.0); POTASSIUM 3.4 mmol/L (3.5-5.1)
[2021-04-24 03:06] VITALS: BP 100/27
--- NOTE | 2021-04-24 06:49 | NUR ---
PT ALERT AND ORIENTED AND ABLE TO EXPRESS NEEDS. Q2 HR TURNS PERFORMED TO PROMOTE WOUND HEALING. AROUND 0000 THIS SHIFT PT REMOVED HER RIGHT SIDED DIALYSIS PORT. PRESSURE HELD AT SITE FOR 5 MINUTES TO PROMOTE CLOTTING. PORT WAS LOCATED ON THE FLOOR, FULLY INTACT. OPERATIONS REPRESENTATIVE PHYSICIAL WAS NOTIFIED- STAT LABS AND CHEST XRAY ORDERED DUE TO HYPOXIA POST REMOVAL. RESULTS UNREMARKABLE. PT CONTINUES TO REMOVE TELE MONITOR DESPITE CONTINUED EDUCATION. PRN MEDS PROVIDED. NO OTHER EVENTS AT THIS TIME
[2021-04-24 07:30] VITALS: BP 127/61
--- NOTE | 2021-04-24 10:40 | NUR ---
A/O X 4. 2 L 02 VIA NASAL CANNULA. COARSE BILATERAL LUNGS. BEDREST q 2 HOUR TURN. MAX ASSIST. LEFT TRIPLE LUMEN IJ. INCONT OF BOWEL. HELM IN PLACE-ANURIC. REDNESS ON BUTTOCKS-Z GUARD APPILED AND LEFT INNER THIGH WOUND CLEANSED, PACKED WITH DANKINS SOAKED GUAZE, ABD COVERING. AFIB ON TELE. BS @ BREAKFAST 100, FAST ACTING INSULIN HELD, LONG ACTING 20 UNITS GIVEN. NO PAIN NOTED. BILATERAL BKA. TOOK OUT HER DIALYSIS CATH LAST NIGHT. ON CONTACT PRECAUTIONS FOR MRSA.
[2021-04-24 11:00] VITALS: BP 115/53
[2021-04-24 15:00] VITALS: BP 105/51
--- NOTE | 2021-04-25 04:36 | NUR ---
PT LYING IN BED. DENIES PAIN. RESTING COMFORTABLY. NO NEEDS VOICED. CALL LIGHT WITHIN REACH. FREQUENT OBSERVATION.
[2021-04-25 04:45] VITALS: BP 115/53
[2021-04-25 07:14] LABS: HEMATOCRIT 23.3 % (37.0-47.0); HEMOGLOBIN 7.5 gm/dL (12.0-15.0); MCH 29.7 pg (26.0-34.0); MCHC 32.1 g/dL (28.0-37.0); MCV 92.3 fL (80.0-100.0); RBC 2.53 mil/uL (4.20-5.00); RDW 16.1 % (10.5-14.5); WBC 8.1 thou/uL (4.0-11.0)
[2021-04-25 07:15] VITALS: BP 109/46
[2021-04-25 07:22] LABS: CALCIUM 7.9 mg/dL (8.5-10.1); POTASSIUM 3.9 mmol/L (3.5-5.1)
[2021-04-25 07:35] LABS: CREATININE 4.8 mg/dL (0.6-1.0)
[2021-04-25 12:00] VITALS: BP 108/51
[2021-04-25 16:00] VITALS: BP 105/55
[2021-04-25 19:33] VITALS: BP 125/44
[2021-04-26 03:41] VITALS: BP 118/55
--- NOTE | 2021-04-26 04:14 | NUR ---
PT IS ALERT AND ORIENTED X4. LUNGS ARE COSRE WITH A PRODUCTIVE COUGH. ON 2 LITERS NASAL CANULA. WOUND CARE DONE TO LEFT INNER THIGH. TURN Q 2 HOURS. PT HAS HAD SOME LOOSE BOWEL MOVEMENNTS. Irma OSHEA TO CREAM ON COCCYX. HELM TO DD WITH LOW OUTPUT. TURN Q 2 HOURS PER NURSING. DENIES ANY COMPLAINTS OF PAIN NOTED. CALL LIGHT WITHIN REACH IF NEEDS ASSISSTANCE PER NURSING.
[2021-04-26 07:20] VITALS: BP 140/68
[2021-04-26 09:05] LABS: HEMOGLOBIN 7.9 gm/dL (12.0-15.0); MCH 29.2 pg (26.0-34.0); MCHC 31.8 g/dL (28.0-37.0); MCV 91.8 fL (80.0-100.0); RBC 2.72 mil/uL (4.20-5.00); RDW 16.1 % (10.5-14.5); WBC 7.8 thou/uL (4.0-11.0)
[2021-04-26 09:14] LABS: APTT 29.1 Seconds (24.5-32.8); INR 1.02; PROTIME 11.1 Seconds (10.5-12.1)
[2021-04-26 12:30] VITALS: BP 100/63
--- NOTE | 2021-04-26 14:42 | NUR ---
Followup: chronic wounds, bilateral BKA, ischial tuberosity wounds, left thigh wound. Eats well, usuall 100% of meals. No new wts to assess. Has moved out of ICU. BG controlled. Presents low nutrition risk
--- NOTE | 2021-04-26 15:54 | NUR ---
CM SPOKE TO CAT AT [facility]. THEY ARE ABLE TO ACCEPT PT BACK ONCE PATIENT IS MEDICALLY STABLE TO DC. CLINICAL UPDATES SENT. CAT SUBMITTED INSURANCE AUTH. CM FOLLOWING.
[2021-04-26 16:55] VITALS: BP 103/51
[2021-04-26 19:45] VITALS: BP 102/23
[2021-04-27 04:57] VITALS: BP 81/31
--- NOTE | 2021-04-27 04:57 | NUR ---
PT BEEN RESTING IN NO ACUTE DISTRESS.A/OX4.VSS.AFIB ON MONITOR.WOUND CARE COMPLETED TO LEFT UPPER THIGH/GROIN AREA PER ORDERS.PT TOLERATED.ASSESSMENT COMPLETED DOCUMENTED.
[2021-04-27 07:30] VITALS: BP 97/49
[2021-04-27 11:00] VITALS: BP 95/63
[2021-04-27 16:00] VITALS: BP 133/49
--- NOTE | 2021-04-27 17:22 | NUR ---
SPOKE WITH [facility]. THEY ARE REQUESTING UPDATED THERAPY NOTES AND CLINICAL UPDATES FOR [facility] AUTH. ALL PARTIES HOPEFUL. AUTH WILL BE APPROVED FOR RETURN TO SNF TOMORROW. CHART COPY REQUESTED. CM FOLLOWING.
--- NOTE | 2021-04-27 18:22 | NUR ---
NO FALLS OR INJURIES THIS SHIFT. MORNING CARVEDILOL HELD THIS MORNING D/T LOW BP. ACHS ACCU CHECKS COMPLETED AND TREATED PER ORDERS. PATIENT ON 3.5LNC. SEVERAL BM'S THIS SHIFT. TURNED REQUESTED. DC'D IV ANTIBIOTICS AND STARTED ON PO AMOXICILLIN. PT PROGRESSING TOWARD POC.
[2021-04-27 19:40] VITALS: BP 123/84
[2021-04-28 03:39] VITALS: BP 117/69
--- NOTE | 2021-04-28 06:29 | NUR ---
PATIENT AAOX4 WATCHING TV. PATIENT HAS HAD 2 SMALL BM'S TONIGHT. CHANGED DRESSING TO L INNER THIGH. PT TOLERATED WELL. HER VITALS ARE STABLE. SHE IS CALM AND COOPERATIVE. VSS. BREATHING IS UNLABORED ON 3.5L NC. NO S/S OF DISTRESS NOTED. WILL CONTINEU TO MONITOR.
[2021-04-28 08:20] VITALS: BP 108/72
[2021-04-28 11:55] VITALS: BP 146/51
--- NOTE | 2021-04-28 12:48 | NUR ---
THIS CM IN CONTACT WITH CHEY AVILA OF [employer] AND INQUIRED ABOUT A REFERANCE NUMBER TO TRY TO SPEED UP INS AUTH. REF # RECEIVED. CALL PLACED TO [facility] WITH [facility] AND SPOKE WITH DIANA. INFORMED HER PATIENT MEDICALLY STABLE TO DC OF YESTERDAY. MARGARITA CAN READMIT TODAY. WAS INFORMED BY DIANA NO NOTES WERE FOUND, IT WASNT ASSIGNED TO ANYONE, AND SAW NO RECORDS. THIS CM FAXED ALL NECESSARY CLINICALS TO [facility] TO [phone]. PER DIANA SHE WILL ACCELERATE AUTH. INITIAL REF # [id number]. NEW CASE # ID [id number].
[2021-04-28 14:25] LABS: HEMATOCRIT 23.9 % (37.0-47.0); HEMOGLOBIN 7.9 gm/dL (12.0-15.0); MCH 29.8 pg (26.0-34.0); MCHC 32.9 g/dL (28.0-37.0); MCV 90.5 fL (80.0-100.0); PLATELET COUNT 242 thou/uL (150-400); RBC 2.64 mil/uL (4.20-5.00); RDW 15.9 % (10.5-14.5); WBC 8.6 thou/uL (4.0-11.0)
[2021-04-28 15:19] LABS: ABSOLUTE NEUTROPHILS 7.1 thou/uL (1.4-8.2); METAMYELOCYTES 2 %; NUCLEATED RBCS 2 /100WBC
[2021-04-28 15:23] VITALS: BP 147/56
[2021-04-28] MEDS ORDERED: AUGMENTIN 500-1 EACH PO (15:30)
[2021-04-28] MEDS ORDERED: CARVEDILOL3.125 MG PO (15:31)
--- NOTE | 2021-04-28 16:43 | NUR ---
NO FALLS OR INJURIES THIS SHIFT. DIALYSIS COMPLETED TODAY WITH 2.7L REMOVED. ACCU CHECKS COMPLETED PER ORDER. SCHEDULED INSULIN HELD TWICE D/T LOW BG. PATIENT TO OH TO [facility] AT 1800.
[2021-04-28 17:03] VITALS: BP 147/56
--- NOTE | 2021-04-28 17:16 | NUR ---
CM LM FOR PTS MARGOT TO INFORM PT DISCHARGING TO [facility] THIS EVENING AT 6PM. MARGOT RETURNED THIS CM CALL AND CONFIRMED HIS UNDERSTANDING OF PT TRANSFER. HE REQUEST PT NOT LEAVE WITHOUT HER PHONE, BRUSH, AND GLASSES. MARCIAL DUNCAN AWARE AND WILL MAKE SURE PT DISCHARGES WITH THESE ITEMS. NO FURTHER CM NEEDS AT THIS TIME.
== END 2021-04-28 18:37 | DRG 871 ==
LOC: ER 15:26 → EROBS 18:33 → ICU 18:33 → 2N 04-22 16:01
PROVIDERS: Emergency Medicine; Hospitalist; Nurse Practitioner Family; Radiology Diagnostic Radiology; ADMIT Hospitalist; ATTEND Hospitalist
PROC: 5A1D70Z Performance of Urinary Filtration, Intermittent, Less than 6 Hours Per Day (ICD-10-PCS; principal; 2021-04-18)
PROC: 30233N1 Transfusion of Nonautologous Red Blood Cells into Peripheral Vein, Percutaneous Approach (ICD-10-PCS; principal; 2021-04-18)
PROC: B548ZZA Ultrasonography of Superior Vena Cava, Guidance (ICD-10-PCS; 2021-04-26)
PROC: 0JH63XZ Insertion of Tunneled Vascular Access Device into Chest Subcutaneous Tissue and Fascia, Percutaneous Approach (ICD-10-PCS; 2021-04-26)
PROC: 02H633Z Insertion of Infusion Device into Right Atrium, Percutaneous Approach (ICD-10-PCS; 2021-04-26)
PROC: B5181ZA Fluoroscopy of Superior Vena Cava using Low Osmolar Contrast, Guidance (ICD-10-PCS; 2021-04-26)
PROC: 5A1D70Z Performance of Urinary Filtration, Intermittent, Less than 6 Hours Per Day (ICD-10-PCS; 2021-04-26)
PROC: 5A1D70Z Performance of Urinary Filtration, Intermittent, Less than 6 Hours Per Day (ICD-10-PCS; 2021-04-27)
DX: A41.9 Sepsis, unspecified organism (principal); L89.153 Pressure ulcer of sacral region, stage 3; L89.223 Pressure ulcer of left hip, stage 3; L89.213 Pressure ulcer of right hip, stage 3; E43 Unspecified severe protein-calorie malnutrition; J18.9 Pneumonia, unspecified organism; N18.6 End stage renal disease; G93.41 Metabolic encephalopathy; N39.0 Urinary tract infection, site not specified; L03.116 Cellulitis of left lower limb; I42.9 Cardiomyopathy, unspecified; L02.416 Cutaneous abscess of left lower limb; I13.2 Hypertensive heart and chronic kidney disease with heart failure and with stage 5 chronic kidney disease, or end stage renal disease; Z68.43 Body mass index [BMI] 50.0-59.9, adult; I50.9 Heart failure, unspecified; Z20.822 Contact with and (suspected) exposure to COVID-19; E66.01 Morbid (severe) obesity due to excess calories; F32.9 Major depressive disorder, single episode, unspecified; E78.5 Hyperlipidemia, unspecified; G47.33 Obstructive sleep apnea (adult) (pediatric); E11.51 Type 2 diabetes mellitus with diabetic peripheral angiopathy without gangrene; E03.9 Hypothyroidism, unspecified; D64.9 Anemia, unspecified; E11.42 Type 2 diabetes mellitus with diabetic polyneuropathy; R53.81 Other malaise; I95.9 Hypotension, unspecified; S31.000A Unspecified open wound of lower back and pelvis without penetration into retroperitoneum, initial encounter; B96.1 Klebsiella pneumoniae [K. pneumoniae] as the cause of diseases classified elsewhere; E87.5 Hyperkalemia; E11.22 Type 2 diabetes mellitus with diabetic chronic kidney disease; I48.91 Unspecified atrial fibrillation; Z79.4 Long term (current) use of insulin; Z89.512 Acquired absence of left leg below knee; Z89.511 Acquired absence of right leg below knee; Z88.2 Allergy status to sulfonamides; Z88.8 Allergy status to other drugs, medicaments and biological substances; Z91.040 Latex allergy status; Z86.711 Personal history of pulmonary embolism; Z87.891 Personal history of nicotine dependence; X58.XXXA Exposure to other specified factors, initial encounter; Y93.89 Activity, other specified; Y92.89 Other specified places as the place of occurrence of the external cause; Y99.8 Other external cause status
CPT/HCPCS: 10081; 10203; 32100

== ENCOUNTER 2021-06-18 11:37 | Inpatient (IN) | payer OTHER ==
[~2021-06-18] VITALS: Ht 177.8 cm; Wt 163.9 kg
[~2021-06-18 11:37] MED LIST changes: +CARVEDILOL3.125 MG PO; +HYDRALAZINE 2525 MG PO; +LOPERAMIDE2 MG PO
[2021-06-18 12:28] LABS: HEMATOCRIT 40.3 % (37.0-47.0); HEMOGLOBIN 12.5 gm/dL (12.0-15.0); MCV 87.2 fL (80.0-100.0); PLATELET COUNT 284 thou/uL (150-400); RBC 4.63 mil/uL (4.20-5.00); RDW 17.4 % (10.5-14.5); WBC 31.6 thou/uL (4.0-11.0)
[2021-06-18 12:37] LABS: CALCIUM 8.6 mg/dL (8.5-10.1); CREATININE 4.5 mg/dL (0.6-1.0); POTASSIUM 3.2 mmol/L (3.5-5.1)
[2021-06-18 12:47] LABS: DIRECT BILIRUBIN 0.2 mg/dL (<0.1-0.2); TOTAL BILIRUBIN 0.7 mg/dL (0.2-1.0); TOTAL PROTEIN 7.2 g/dL (6.4-8.2)
[2021-06-18 13:10] LABS: ABSOLUTE NEUTROPHILS 29.7 thou/uL (1.4-8.2); ANISOCYTOSIS SLIGHT; POIKILOCYTOSIS SLIGHT
[2021-06-18 15:57] VITALS: BP 000/000
[2021-06-18 17:50] VITALS: BP 119/46; BP 119/465
[2021-06-18 19:44] VITALS: BP 142/122
[2021-06-18 19:49] VITALS: BP 88/43
--- NOTE | 2021-06-18 19:54 | NUR ---
PT ADMITTED FROM ER ABOUT 1750PM FOR A-FIB, AND SEPSIS, PT IS A&OX4, RN HAS CALLED HOSIPITAL DR AND CARDILOGY DR TO REPORT PT'S LOW BP 118/45MMHG,HR108, PT DENIES DIZZNESS , NEW ORDER RECEVIED , DILTIAZEM IVPB IS HOLD FOR NOW, PT STARTS AMIODARONE 200MG PO BID. RN HAS REPORTED TO NEXT SHIFT TO FINISH ADIMITTED ASSESSMENT AND ORDERS AND KEEP EYE ON PT.
[2021-06-18 23:00] VITALS: BP 102/56
[2021-06-19 03:50] VITALS: BP 93/48
[2021-06-19 05:00] VITALS: BP 95/70
[2021-06-19 06:10] LABS: HEMATOCRIT 34.5 % (37.0-47.0); MCH 26.3 pg (26.0-34.0); MCHC 30.1 g/dL (28.0-37.0); MCV 87.6 fL (80.0-100.0); RBC 3.94 mil/uL (4.20-5.00); RDW 16.9 % (10.5-14.5); WBC 22.7 thou/uL (4.0-11.0)
[2021-06-19 06:21] LABS: HEMOGLOBIN 10.4 gm/dL (12.0-15.0)
[2021-06-19 06:29] LABS: CALCIUM 7.9 mg/dL (8.5-10.1); CREATININE 5.4 mg/dL (0.6-1.0); POTASSIUM 3.3 mmol/L (3.5-5.1)
[2021-06-19 07:01] VITALS: BP 80/39
--- NOTE | 2021-06-19 07:55 | NUR ---
ASSUMED PT CARE AT 1900. PT IS ALERT & ORIENTED X 4. THIS NURSE OBTAINED PICTURES OF PT'S WOUNDS AND POSTED THEM IN CHART. PT HAS HAD MULTIPLE C/O OF GENERALZED PAIN, ADMINISTRED PAIN MEDS PRN. AFIB ON TELE MONITOR WITH HR 95-108. RECEIVED CRITICAL LABS FOR PT - GRAM POSITIVE COCCI BLOOD CULTURES. 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 PT IS ABLE TO EXPRESS NEEDS AND ALL NEEDS ARE MET AT THIS TIME.
--- NOTE | 2021-06-19 09:51 | EKG ---
[place] [address] [facility] [place] [address] ELECTROCARDIOGRAM REPORT Name: KALPANA BILLS Room #: 357-P ADM IN M.R.#: [id number] Admission: 06/18/21 Attend Phys: Castro Song MD Discharge: Date of : 67 Report #: [id number] [facility] ED Test Date: 2021-06-18 Test Time: 11:46:36 Pat Name: KALPANA BILLS Department: Room: 357 Gender: F Accounting Director: JAMES : 1965 Requested By: Castro Song Order Number: [id number] MD: Jeremy Roberts Measurements Intervals [place] Rate: 156 P: OR: QRS: 91 QRSD: 95 T: -83 QT: 272 QTc: 438 Interpretive Statements Atrial fibrillation Borderline right axis deviation Low voltage, extremity and precordial leads Repolarization abnormality, prob rate related Compared to ECG 04/18/2021 15:45:46 Early repolarization now present Electronically Signed On 06-19-2021 9:51:38 [employer]ACK CLE[employer] by Jeremy Roberts [email or web address] <ELECTRONICALLY SIGNED> By: Jeremy Roberts MD 06/19/21 0951 1146 1146 Jeremy Roberts MD /ANA
[2021-06-19 11:18] VITALS: BP 108/45
--- NOTE | 2021-06-19 11:43 | NUR ---
VASCULAR ACCESS NURSE- ORDER FOR PICC PLACEMENT NOTED. THIS PATIENT IS ESRD WITH BILATERAL FAILED UPPER ARM FISTULA. PICC/MIDLINE PLACEMENT IS NOT APPROPRIATE FOR THIS PATIENT. POSITIVE BLOOD CULTURES NOTED AND CENTRAL LINE PLACEMENT IS NOT RECOMMENDED AT THIS TIME. THIS PATIENT IS ONLY ON VANCO Q DIALYSIS DAYS AND IV MORPHINE. DISCUSSED WITH THE PATIENT THAT A PERIPHERAL IV IS MORE APPROPRIATE AND SHE AGREED. DISCUSSED WITH THE PATIENTS AND NURSE. A LEFT FOREARM #20 WAS PLACED.
[2021-06-19 15:15] VITALS: BP 89/42
--- NOTE | 2021-06-19 17:45 | 2DMMODE ---
[facility] [place] [address] 2 D/M-MODE ECHOCARDIOGRAM Name: KALPANA BILLS Room #: 357-P ADM IN M.R.#: [id number] Admission: 06/18/21 Attend Phys: Castro Song MD Discharge: Date of : 67 Report #: [id number] THIS REPORT FOR: cc: Kyle Driver MD, Samuel D. MD Park, Jin S. MD ~ APPROVED REPORT Study performed: 06/19/2021 10:04:53 EXAM: Comprehensive 2D, Doppler, and color-flow Echocardiogram Patient Location: In-Patient Room #: 357 Status: routine BSA: 0.78 HR: 102 bpm Rhythm: Tachycardia Other Information Study Quality: Technically Difficult Risk Factors: Cardiac Risk Factors: HTN, Hyperlipidemia, DM,Morbid Obesity Indications Chest Pain Echo Enhancing Agent Indication: Endocardial border delineation Agent(s) / Amount(s) Used: Optison 2 cc 2D Dimensions IVSd: 11.14 (7-11mm) LVOT Diam: 26.25 (18-24mm) LVDd: 45.79 mm PWd: 9.89 (7-11mm) LVDs: 33.79 (25-40mm) Left Atrium: 35.86 (27-40mm) Aortic Root: 31.06 mm Pulmonary Valve PV Peak Imer.: 1.20 m/s PV Peak Gr.: 5.75 mmHg [facility] [address] [place] [address] 2 D/M-MODE ECHOCARDIOGRAM Name: KALPANA BILLS Room #: 357-P ADM IN M.R.#: [id number] Admission: 06/18/21 Attend Phys: Castro Song MD Discharge: Date of : 67 Report #: [id number] Tricuspid Valve TR Peak Imer.: 2.34 m/s TR Peak Gr.: 21.90 mmHg Left Ventricle The left ventricle is normal size. There is normal left ventricular wall thickness. The left ventricular systolic function is normal. The left ventricular ejection fraction is within the normal range. LVEF is 60-65%. Right Ventricle The right ventricle is normal size. The right ventricular systolic function is normal. Atria The left atrium size is normal. The right atrium size is normal. Aortic Valve The aortic valve is normal in structure. No aortic regurgitation is present. There is no aortic valvular stenosis. Mitral Valve The mitral valve is normal in structure. There is no mitral valve regurgitation noted. No evidence of mitral valve stenosis. Tricuspid Valve The tricuspid valve is normal in structure. Trace tricuspid regurgitation. Estimated PAP 25-30 mmHg. Pulmonic Valve The pulmonary valve is normal in structure. There is no pulmonic valvular regurgitation. Great Vessels The aortic root is normal in size. IVC is normal in size and collapses >50% with inspiration. Pericardium There is no pericardial effusion. Critical Notification Critical Value: No <Conclusion> The left ventricle is normal size. [facility] [address] [place] [address] 2 D/M-MODE ECHOCARDIOGRAM Name: KALPANA BILLS Room #: 357-P ADM IN M.R.#: [id number] Admission: 06/18/21 Attend Phys: Castro Song MD Discharge: Date of : 67 Report #: [id number] There is normal left ventricular wall thickness. The left ventricular systolic function is normal. The right ventricle is normal size. The left atrium size is normal. The aortic valve is normal in structure. There is no mitral valve regurgitation noted. Trace tricuspid regurgitation. Estimated PAP 25-30 mmHg. <ELECTRONICALLY SIGNED> By: Jeremy Roberts MD 06/19/211744 44 44 Jeremy Roberts MD /INF
--- NOTE | 2021-06-19 18:00 | NUR ---
TOOK OVER CARE OF PT AT 0700. PT IS MAKING SLOW PROGRESS. PT'S BP REMAINS LOW AT 80'S/40'S SO WE HELD PAIN MEDS AND CARDAZIM. NEPHROLOGY HAS BEEN CONSULTED BUT HASNT BEEN TO VISIT SO WE GAVE A FOLLOW UP CALL TO THE OFFICE. IV TEAM WAS ABLE TO START ANOTHER PERIPHERAL. PT IS A&OX 4.
[2021-06-19 18:34] VITALS: BP 104/62
--- NOTE | 2021-06-20 02:11 | NUR ---
assisted with turns, she is good about calling for help with turns. complains about itching tonight and that she needs rest. has not been resting well, lately. needs extra attention. obtained a dose of benedryl for tonight. she has been scratching her sides that already have open areas to the point of bleeding. i talked to her about the possible reasons for her itching; including the uric acid crystals that form on the skin and need washing not just lotion.
[2021-06-20 04:53] VITALS: BP 102/32
[2021-06-20 05:27] LABS: HEMATOCRIT 33.4 % (37.0-47.0); HEMOGLOBIN 10.1 gm/dL (12.0-15.0); MCH 26.3 pg (26.0-34.0); MCHC 30.3 g/dL (28.0-37.0); MCV 86.9 fL (80.0-100.0); RBC 3.84 mil/uL (4.20-5.00); RDW 17.5 % (10.5-14.5); WBC 9.5 thou/uL (4.0-11.0)
[2021-06-20 07:20] VITALS: BP 97/42
[2021-06-20 11:31] VITALS: BP 105/53
[2021-06-20 15:26] VITALS: BP 120/80
--- NOTE | 2021-06-20 16:28 | NUR ---
PT IS SLOWLY PROGRESSING TOWARDS CARE. ALERT AND ORIENTED X4, STATED OAIN IS TOLERABLE. WOUND CARE COMPLETED AND PERICARE DONE WELL. PT REPOSITON EVERY 2 HOURS. HAD DIALYSIS TODAY. FALL PRECAUTIONS IN PLACE. WILL CONTINUE TO MONITOR.
[2021-06-20 20:28] VITALS: BP 116/43
[2021-06-21 03:17] VITALS: BP 111/42
--- NOTE | 2021-06-21 05:53 | NUR ---
ASUSUME CARE 1900. PT STABLE. DIFFUCULTIES READING BP FROM BOTH LOWER FOREARMS. HOWEVER, PT DENIES LIGHTHEADEDNESS/DIZZINESS. INTERMITTENT LOWER BACK/BUTTOCKS PAIN, WITH RELIEF FROM PAIN MEDICATION. MODERATE TOLERANCE TO ACTIVITY. ASSESSMENT CHARTED. PROGRESSING SLOWLY TOWARDS POC. PLAN IS REMOVE TDC TODAY DUE TO INFECTION, DO CTA TO FURTHER INVESTIGATE PULM LESIONS. WILL CONTINUE TO MONITOR AND FOLLOW WITH POC
--- NOTE | 2021-06-21 07:30 | HC ---
[facility] [place] [address] CONSULTATION Name: KALPANA BILLS Room #: 357-P ADM IN M.R.#: [id number] Admission: 06/18/21 Attend Phys: Castro Song MD Discharge: Date of : 67 Report #: [id number] THIS REPORT FOR: cc: Kyle Driver MD, Samuel D. MD Barry, Joseph W. MD ~ DATE OF SERVICE: 06/20/2021 INFECTIOUS DISEASE CONSULTATION ATTENDING PHYSICIAN: Dr. Song. REASON FOR EVALUATION: Gram positive ____ group B strep septicemia. HISTORY OF PRESENT ILLNESS: Chart reviewed and patient examined. This is a 56-year-old well known to myself woman, who has extensive medical history given her age. She has end-stage kidney disease, on dialysis. She has had severe vasculopathy, previous bilateral [id number] amputation, chronic wounds. She had been hospitalized frequently in the last several months, generally with infectious related complications including skin and soft tissue. She has multiple wounds, who apparently was at dialysis, started feeling poorly, complained of left upper extremity pain, some associated dyspnea. Chest discomfort was a concern about possible cerebrovascular accident, referred to the Emergency Room where she underwent evaluation. Coronavirus testing was negative. A chest x-ray showed some pulmonary vascular congestion. ProBNP was 2700, lactic acid of 3.0 and white count was 31.6. Imaging of the abdomen and pelvis showed nodular opacities in the right lower lobe. Blood cultures collected at time of admission now growing group B strep. Did undergo echo as well, which showed no overt valvular vegetations. Repeat white count this morning was 9.5. She was empirically started on antibiotics with vancomycin. She notes she is weak. Generally, she feels somewhat better. She has not required supplemental oxygen at this point. She is currently borderline hypotensive, although has not been initiated on pressor support. ALLERGIES: Listed to LATEX, SULFA, CEPHALEXIN. Apparently, tolerates penicillins. CURRENT MEDICATIONS: Include vancomycin, acetaminophen, insulin lispro and glargine, amiodarone. PAST MEDICAL HISTORY: As described above, diabetes mellitus type 2, insulin requiring, is complicated by generalized vasculopathy; end-stage renal disease, on dialysis; bilateral AKA; has a cardiomyopathy; morbid obesity; hypertension; hypothyroidism; obstructive sleep apnea; multiple wounds; chronic anemia; depression. [address] [address] CONSULTATION Name: KALPANA BILLS Room #: 357-P [facility] IN .R.#: [id number] Admission: 06/18/21 Attend Phys: Castro Song MD Discharge: Date of : 67 Report #: [id number] SOCIAL HISTORY: Available in chart, reviewed. FAMILY HISTORY: Available in chart, reviewed. REVIEW OF SYSTEMS: Otherwise, unremarkable. PHYSICAL EXAMINATION: GENERAL: She appears chronically ill. She is generally lucid, morbidly obese, in moderate distress. VITAL SIGNS: Temperature 97.4, pulse 94, respirations 18, blood pressure is 94/42. SKIN: Warm, dry. No rashes. HEENT: Normocephalic. Extraocular muscles intact. NECK: Supple. LUNGS: Diminished breath sounds throughout. HEART: Regular, borderline tachycardic. I do not appreciate a murmur. ABDOMEN: Obese, firm. No peritoneal signs. Has multiple superficial ulcerations. EXTREMITIES: She has 1 deeper ulceration involving the medial aspect of the thigh that is necrotic site, previous abscess with operative drainage. There is mild degree of surface inflammation noted. LABORATORY DATA: Most recent CBC: White count 9.5, H and H 10.1 and 33.4, platelets of 226. Echo as described above. Blood cultures collected on the with group B strep. Electrolytes: Sodium 131, potassium 3.3, chloride 95, bicarbonate is 24, anion gap of 12, BUN and creatinine 14 and 5.4, consistent with her dialysis status. Sed rate of 27. CRP of 43.9. ASSESSMENT AND PLAN: Group B strep septicemia in a patient with significant risk factors for infectious complications, this is a primary skin and soft tissue versus perhaps line related. Noted plans to evaluate, probably in favor removing the dialysis catheter, could time that after dialysis tomorrow, has been out for 48 hours, dose with vancomycin. We will repeat blood cultures. Follow up on the CT showed some nodular lesions that can exclude septic emboli, better defined that with a CT of the chest. We will add incentive spirometry if she remains severely ill. Continue wound care as prescribed. <ELECTRONICALLY SIGNED> By: Tyrese Cota MD 06/21/21 0730 [id number] Tyrese Cota MD /nt
[2021-06-21 07:52] VITALS: BP 92/45
[2021-06-21 11:39] VITALS: BP 114/25
--- NOTE | 2021-06-21 16:10 | NUR ---
INITIAL ASSESSMENT: SW reviewed chart and spoke with nursing and attending physician. Pt was admitted from home due to sepsis. Pt is on IV abx. Pt with hx of ESRD and is on dialysis at [facility]. Pt to have dialysis catheter removed due to infection. SW met with pt at bedside. Introduced role of SW. Pt is alert/orientated x 4. Pt report she lives at home with her and family. Pt with hx bilateral AKA. Pt has a w/c at home. Pt has been to [facility] recently and has since discharged home. Pt is not currently receiving HH services. Pt's PCP is Dr. Kyle Driver. PT/OT evals ordered. Pt states she is interestes in going to for rehab. SW explained admission criteria and need for insurance authorization. Pt state she does not want to return to [facility] if SNF is needed. SW notified rehab liasion. SW is following to assist as needed with discharge planning.
[2021-06-21 16:31] VITALS: BP 115/46
--- NOTE | 2021-06-21 18:02 | NUR ---
TOOK OVER PT CARE OF PT AT 0700. PT IS NOT PROGRESSING. PT IS IN CONSTANT PAIN WHICH IS TREATED WITH HYDROCODONE WITH LESS THAN DESIREABLE RESULTS. PT IS A&O X 4. PT IS BED BOUND AND CALLS TO BE TURNED. PT USES A BED MARIE. CT SCAN SHOWED ENLARGED LYNPH NODES AND A MASS IN THE LUNGS. PT HAD HER DIALISIS LINE REMOVED AND A TEMPORARY ONE INSERTED.
[2021-06-21 19:15] VITALS: BP 81/51
[2021-06-21 20:27] VITALS: BP 81/51
== END 2021-06-22 | disposition home health service (06) | DRG 314 ==
LOC: ER 11:37 → 3W 15:35 → EROBS 15:35 → 3W 16:59
PROVIDERS: Student in an Organized Health Care Education/Training Program; ADMIT Hospitalist; ATTEND Hospitalist
PROC: 5A1D70Z Performance of Urinary Filtration, Intermittent, Less than 6 Hours Per Day (ICD-10-PCS; 2021-06-20)
PROC: 02HV33Z Insertion of Infusion Device into Superior Vena Cava, Percutaneous Approach (ICD-10-PCS; principal; 2021-06-21)
PROC: 0JH63XZ Insertion of Tunneled Vascular Access Device into Chest Subcutaneous Tissue and Fascia, Percutaneous Approach (ICD-10-PCS; principal; 2021-06-21)
PROC: B5181ZA Fluoroscopy of Superior Vena Cava using Low Osmolar Contrast, Guidance (ICD-10-PCS; principal; 2021-06-21)
PROC: 5A1D70Z Performance of Urinary Filtration, Intermittent, Less than 6 Hours Per Day (ICD-10-PCS; 2021-06-21)
PROC: 0DJ08ZZ Inspection of Upper Intestinal Tract, Via Natural or Artificial Opening Endoscopic (ICD-10-PCS; 2021-06-22)
PROC: 5A1D70Z Performance of Urinary Filtration, Intermittent, Less than 6 Hours Per Day (ICD-10-PCS; 2021-06-22)
DX: T80.211A Bloodstream infection due to central venous catheter, initial encounter (principal); L89.893 Pressure ulcer of other site, stage 3; L89.153 Pressure ulcer of sacral region, stage 3; N18.6 End stage renal disease; R65.21 Severe sepsis with septic shock; J18.9 Pneumonia, unspecified organism; E43 Unspecified severe protein-calorie malnutrition; A40.1 Sepsis due to streptococcus, group B; Z68.43 Body mass index [BMI] 50.0-59.9, adult; I48.19 Other persistent atrial fibrillation; I12.0 Hypertensive chronic kidney disease with stage 5 chronic kidney disease or end stage renal disease; Z79.899 Other long term (current) drug therapy; Z20.822 Contact with and (suspected) exposure to COVID-19; Z88.2 Allergy status to sulfonamides; Z88.8 Allergy status to other drugs, medicaments and biological substances; E66.01 Morbid (severe) obesity due to excess calories; F17.210 Nicotine dependence, cigarettes, uncomplicated; Z89.612 Acquired absence of left leg above knee; Z89.611 Acquired absence of right leg above knee; Z79.01 Long term (current) use of anticoagulants; Z71.6 Tobacco abuse counseling; Z91.040 Latex allergy status; E78.5 Hyperlipidemia, unspecified; K43.9 Ventral hernia without obstruction or gangrene; B37.9 Candidiasis, unspecified; K29.70 Gastritis, unspecified, without bleeding; K25.9 Gastric ulcer, unspecified as acute or chronic, without hemorrhage or perforation; E11.22 Type 2 diabetes mellitus with diabetic chronic kidney disease; Z99.2 Dependence on renal dialysis; Z79.4 Long term (current) use of insulin; E11.65 Type 2 diabetes mellitus with hyperglycemia; D64.9 Anemia, unspecified; D63.8 Anemia in other chronic diseases classified elsewhere; E11.51 Type 2 diabetes mellitus with diabetic peripheral angiopathy without gangrene
CPT/HCPCS: 10879; 32100